=== PATIENT | male | born 1935 | race Caucasian/White ===

== ENCOUNTER → 2016-10-11 | Outpatient (CLI) | payer BC ==
[~2016-10-11] MED LIST: ASPI81TA28 PO; CYAN100020 PO; GLIM2TAB2 PO; LEVO100T PO; LISI-729 PO; NVLGI SC; NXM/40 PO; VTMD1000 PO
== END | disposition home or self-care (01) ==
LOC: C.LABBFT 08:36
PROVIDERS: ATTEND Nurse Practitioner Adult Health
DX: E03.9 Hypothyroidism, unspecified (principal)

== ENCOUNTER → 2016-12-15 | Outpatient (CLI) | payer BC ==
[2016-12-15 13:44] LABS: ESTIMATED AVERAGE GLUCOSE 177 mg/dl; HA1C FLAG Normal (Normal)
== END | disposition home or self-care (01) ==
LOC: C.LAB1850 11:35
PROVIDERS: ATTEND Nurse Practitioner Adult Health
DX: E11.29 Type 2 diabetes mellitus with other diabetic kidney complication (principal)

== ENCOUNTER → 2017-02-08 | Outpatient (CLI) | payer BC ==
--- NOTE | 2017-02-08 08:46 | DIAGNOSTIC IMAGING REPORT ---
CT OF THE CHEST WITHOUT IV CONTRAST CLINICAL HISTORY: Pulmonary nodule. One-year follow-up. COMPARISON STUDY: 05/12/2016 CT DOSE: 683.23 mGy.cm TECHNIQUE: CT of the thorax was performed from the thoracic inlet to the lung bases. Images are reviewed in the axial, sagittal, and coronal planes. IV contrast was not administered for this examination. FINDINGS: Thyroid: Imaged portions of the thyroid gland are normal in appearance. Thoracic aorta: The thoracic aorta is normal in course and caliber, noting standard 3 vessel arch anatomy. Heart: The heart is normal in size. There are coronary artery calcifications present. Lungs and pleural spaces: No pleural effusions are visualized. There is pulmonary emphysema. There is dependent lower lobe subpleural reticulation. There is a stable solid 5 mm pulmonary nodule within the left lower lobe as visualized on image #[id number]. There is a stable solid 7 mm left lower lobe pulmonary nodule as visualized in image #[id number]. There is a stable solid 5 x 3 mm pulmonary nodule within the lingula, as visualized on image #[id number].. There is an additional stable 4 mm solid lingular pulmonary nodule as visualized in image #[id number]. Mediastinum: There is a stable subcarinal lymph node the upper limits of normal in size. Rosemary: There is no evidence of pathologic hilar adenopathy given the limitations of a noncontrast study Axilla: Clear. Upper abdomen: Partially visualized upper abdominal viscera is within normal limits. Skeletal structures: There are no lytic or blastic osseous lesions. IMPRESSION: 1. Pulmonary emphysema 2. Mild dependent subpleural reticulation 3. Stable subcentimeter left lung pulmonary nodules. A 12 month follow-up is recommended per Fleischner criteria. Please refer to below summary of Fleischner criteria recommendations for follow-up of incidental CT nodules (Shiv Isaac, Guidelines for management of small pulmonary nodules detected on CT scans: A statement from the Fleischner Society, Radiology 237: [phone].) SOLID NODULES Solitary nodule size: <6 mm * low risk patients: no follow-up needed * high risk patients: optional CT at 12 months Solitary nodule size: 6-8 mm * low risk patients: follow-up at 6-12 months, then consider further follow-up at 18-24 months * high risk patients: initial follow-up CT at 6-12 months and then at 18-24 months if no change Solitary nodule size: >8 mm * either low or high risk patients - consider follow-up CT at 3 months, and/or CT-PET, and/or biopsy Multiple nodules size: <6 mm * low risk patients: no routine follow-up * high risk patients: optional CT at 12 months Multiple nodules size: 6-8 mm * low risk patients: follow-up at 3-6 months, then consider further follow-up at 18-24 months * high risk patients: follow-up at 3-6 months, then at 18-24 months if no change Multiple nodules size: >8 mm * low risk patients: follow-up at 3-6 months, then consider further follow-up at 18-24 months * high risk patients: follow-up at 3-6 months, then at 18-24 months if no change Note: newly detected indeterminate nodule in persons 35 years of age or older. * low risk patients: minimal or absent history of smoking and/or other known risk factors * high risk patients: history of smoking or of other known risk factors (e.g. first degree relative with lung cancer, or exposure to asbestos, radon, uranium) * if a nodule up to 8 mm is partly solid or is ground glass further follow-up is required after 24 months to exclude possible slow growing adenocarcinoma (YESSENIA) SUBSOLID NODULES Solitary pure ground-glass nodule * nodule size <6 mm - no CT follow-up required * nodule size >=6 mm - follow-up CT at 6-12 months, then every 2 years until 5 years Solitary part-solid nodule * nodule size <6 mm - no CT follow-up required * nodule size >=6 mm - follow-up CT at 3-6 months. If unchanged, and solid component remains <6 mm, then annual follow-up for 5 years Multiple subsolid nodules * nodule size <6 mm - follow-up CT at 3-6 months, consider further follow-up at 2 and 4 years if stable * nodule size >=6 mm - follow-up CT at 3-6 months, subsequent management based on the most suspicious nodule(s) Electronically signed by: Braxton Carlton M.D. 02/08/2017 8:45 AM Dictated Date/Time: 02/08/2017 8:35 AM
== END | disposition home or self-care (01) ==
LOC: C.CTS 08:22
PROVIDERS: ATTEND Physician Assistant Medical
DX: R91.8 Other nonspecific abnormal finding of lung field (principal); J43.9 Emphysema, unspecified

== ENCOUNTER → 2017-03-08 | Outpatient (CLI) | payer BC ==
[2017-03-08 12:21] LABS: BASO % 1.8 %; BASO ABS # 0.09 K/uL (0-0.2); COMPLETE YES; EOS % 1.2 %; HEMATOCRIT 37.3 % (42-52); IG% 0.4 %; LYMPH % 30.9 %; LYMPH ABS # 1.58 K/uL (1.2-3.4); MEAN CELL VOLUME 98.7 fL (80-100); MEAN CORPUSCULAR HEMOGLOBIN 33.3 pg (25-34); MEAN CORPUSCULAR HGB CONC 33.8 g/dl (32-36); MEAN PLATELET VOLUME 11.5 fL (7.4-10.4); MONO % 9.2 %; NEUT % 56.5 %; PLATELET COUNT 119 K/uL (130-400); RED BLOOD COUNT 3.78 M/uL (4.7-6.1); WHITE BLOOD COUNT 5.12 K/uL (4.8-10.8)
== END | disposition home or self-care (01) ==
LOC: C.LABBFT 08:24
PROVIDERS: ATTEND Internal Medicine Hematology & Oncology
DX: D61.818 Other pancytopenia (principal)

== ENCOUNTER → 2017-03-28 | Outpatient (CLI) | payer BC ==
[2017-03-28 13:09] LABS: ESTIMATED AVERAGE GLUCOSE 177 mg/dl; HA1C FLAG Normal (Normal)
== END | disposition home or self-care (01) ==
LOC: C.LABBFT 09:08
PROVIDERS: ATTEND Nurse Practitioner Adult Health
DX: E11.29 Type 2 diabetes mellitus with other diabetic kidney complication (principal)

== ENCOUNTER → 2017-07-16 | Outpatient (CLI) | payer BC ==
[2017-07-16 12:41] LABS: ESTIMATED AVERAGE GLUCOSE 163 mg/dl; HA1C FLAG Normal (Normal)
== END | disposition home or self-care (01) ==
LOC: C.LABBFT 08:01
PROVIDERS: ATTEND Nurse Practitioner Adult Health
DX: E11.65 Type 2 diabetes mellitus with hyperglycemia (principal)

== ENCOUNTER → 2017-10-02 | Outpatient (CLI) | payer BC ==
[2017-10-02 17:00] LABS: EOS ABS # 0.05 K/uL (0-0.5); HEMATOCRIT 40.6 % (42-52); HEMOGLOBIN 13.4 g/dL (14.0-18.0); IG# 0.01 K/uL (0.00-0.02); LYMPH ABS # 1.52 K/uL (1.2-3.4); MEAN CELL VOLUME 100.2 fL (80-100); MEAN CORPUSCULAR HEMOGLOBIN 33.1 pg (25-34); MEAN PLATELET VOLUME 11.5 fL (7.4-10.4); MONO ABS # 0.49 K/uL (0.11-0.59); NEUT % 55.8 %; NEUT ABS # 2.73 K/uL (1.4-6.5); PLATELET COUNT 121 K/uL (130-400); RED CELL DISTRIBUTION WIDTH CV 13.7 % (11.5-14.5); RED CELL DISTRIBUTION WIDTH SD 50.4 fL (36.4-46.3)
[2017-10-02 17:20] LABS: ALKALINE PHOSPHATASE 64 U/L (45-117); ALT/SGPT 40 U/L (12-78); AST/SGOT 24 U/L (15-37); BLOOD UREA NITROGEN 16 mg/dl (7-18); CALCIUM 9.1 mg/dl (8.5-10.1); CARBON DIOXIDE 27 mmol/L (21-32); CREATININE 1.22 mg/dl (0.60-1.40); GLUCOSE 216 mg/dl (70-99); POTASSIUM 4.1 mmol/L (3.5-5.1); SODIUM 139 mmol/L (136-145); TOTAL PROTEIN 7.4 gm/dl (6.4-8.2)
[2017-10-03 06:42] LABS: HEMOGLOBIN A1C 7.1 % (4.5-5.6)
== END | disposition home or self-care (01) ==
LOC: C.LABBC 14:57
PROVIDERS: ATTEND Internal Medicine
DX: E11.9 Type 2 diabetes mellitus without complications (principal); Z86.19 Personal history of other infectious and parasitic diseases

== ENCOUNTER → 2017-11-01 | Outpatient (CLI) | payer BC ==
[~2017-11-01] MED LIST changes: +CELE1CAP30 PO; +INSU1.2I SC; +LEVO112T4 PO; +NVLGI/PEN SC
--- NOTE | 2017-11-01 11:09 | DIAGNOSTIC IMAGING REPORT ---
CHEST 2 VIEWS ROUTINE HISTORY: 81 years-old Male R05 [id number] acute cough COMPARISON: Chest CT 02/08/2017, chest radiograph 12/04/2015 TECHNIQUE: PA and lateral views of the chest FINDINGS: Cardiomediastinal and hilar silhouettes are within normal limits. Linear subsegmental atelectasis or scarring of the lingula. Emphysematous changes are noted with hyperinflation. Mild biapical pleural-parenchymal scarring without pneumothorax, pleural effusion, focal airspace consolidation or overt pulmonary edema. Bones of the chest appear grossly intact. IMPRESSION: 1. Emphysema without acute process. 2. Linear subsegmental atelectasis/scarring of the lingula. The above report was generated using voice recognition software. It may contain grammatical, syntax or spelling errors. Electronically signed by: Juan Ramires M.D. 11/01/2017 11:08 AM Dictated Date/Time: 11/01/2017 11:06 AM
== END | disposition home or self-care (01) ==
LOC: C.RADBC 10:30
PROVIDERS: ATTEND Nurse Practitioner Adult Health
DX: R05 Cough (principal); J43.9 Emphysema, unspecified; J98.11 Atelectasis

== ENCOUNTER 2017-11-05 10:27 | Emergency (ER) | payer BC ==
[~2017-11-05] VITALS: Ht 185.4 cm; Wt 104.0 kg
[~2017-11-05 10:27] MED LIST changes: -CELE1CAP30 PO; -INSU1.2I SC; -LEVO112T4 PO; -NVLGI/PEN SC
[2017-11-05 10:44] VITALS: TEMP 36.8; Ht 185.4 cm; Wt 104.0 kg
[2017-11-05] MEDS ORDERED: INSU1.2I SC (11:30)
[2017-11-05] MEDS ORDERED: NVLGI/PEN SC (11:30)
[2017-11-05] MEDS ORDERED: LEVO112T4 PO (11:30)
[2017-11-05] MEDS ORDERED: CELE1CAP30 PO (11:30)
[2017-11-05 12:39] VITALS: O2SAT 96
[2017-11-05 12:41] LABS: BASO % 0.9 %; BASO ABS # 0.07 K/uL (0-0.2); EOS % 0.9 %; EOS ABS # 0.07 K/uL (0-0.5); HEMATOCRIT 37.5 % (42-52); HEMOGLOBIN 13.1 g/dL (14.0-18.0); IG# 0.04 K/uL (0.00-0.02); LYMPH ABS # 1.69 K/uL (1.2-3.4); MEAN CELL VOLUME 96.6 fL (80-100); MEAN CORPUSCULAR HEMOGLOBIN 33.8 pg (25-34); MEAN CORPUSCULAR HGB CONC 34.9 g/dl (32-36); MEAN PLATELET VOLUME 11.7 fL (7.4-10.4); MONO % 7.2 %; MONO ABS # 0.58 K/uL (0.11-0.59); NEUT % 69.5 %; PLATELET COUNT 119 K/uL (130-400); RED CELL DISTRIBUTION WIDTH CV 13.9 % (11.5-14.5); RED CELL DISTRIBUTION WIDTH SD 49.2 fL (36.4-46.3); WHITE BLOOD COUNT 8.05 K/uL (4.8-10.8)
[2017-11-05 12:43] LABS: PTT PATIENT 26.6 SECONDS (21.0-31.0)
[2017-11-05 12:51] LABS: ALBUMIN 3.9 gm/dl (3.4-5.0); ALT/SGPT 33 U/L (12-78); AST/SGOT 23 U/L (15-37); BLOOD UREA NITROGEN 18 mg/dl (7-18); CALCIUM 8.4 mg/dl (8.5-10.1); CARBON DIOXIDE 25 mmol/L (21-32); CREATININE 1.25 mg/dl (0.60-1.40); GLUCOSE 171 mg/dl (70-99); LIPASE 83 U/L (73-393); POTASSIUM 4.2 mmol/L (3.5-5.1); SODIUM 135 mmol/L (136-145)
--- NOTE | 2017-11-05 12:53 | DIAGNOSTIC IMAGING REPORT ---
CHEST ONE VIEW PORTABLE CLINICAL HISTORY: 81 years-old Male presenting with Evaluate Fever/Sepsis. TECHNIQUE: Portable upright AP view of the chest was obtained. COMPARISON: 11/01/2017. FINDINGS: Atherosclerosis of the aortic arch. Cardiac silhouette normal in size. Bandlike opacity in the left lower lung. No other focal opacity. No large effusion or pneumothorax. Osseous structures normal. IMPRESSION: 1. Minimal left basilar atelectasis or scarring. No convincing evidence of pneumonia. Electronically signed by: Dez Florence M.D. 11/05/2017 12:52 PM Dictated Date/Time: 11/05/2017 12:51 PM
[2017-11-05 13:01] LABS: ALKALINE PHOSPHATASE 73 U/L (45-117); CKMB 2.7 ng/ml (0.5-3.6); TOTAL PROTEIN 7.7 gm/dl (6.4-8.2)
--- NOTE | 2017-11-05 13:26 | EMERGENCY ROOM VISIT NOTE ---
History Report prepared by Leslie: Jameel Pierre Under the Supervision of: Dr. Cali Burns D.O. First contact with patient: 11:37 Chief Complaint: SHORTNESS OF BREATH Stated Complaint: BREATHING PROBLEMS History of Present Illness The patient is an 81 year old male who presents to the Emergency Room with complaints of a progressively worsening cough that he has been experiencing for the past two weeks. He notes that he has had shortness of breath issues for the past few years, but states that they have been progressively worsening since developing a cold two weeks ago. He adds that the dyspnea can onset when his is sitting relaxed in a chair, and does not seem to be worsened by/associated to exertion. The patient does have a producing cough currently and does seem weak as compared to his usual. He denies any recent fevers or achiness. The patient does follow with a nutrition aides teacher. 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 A total of 10 systems reviewed and were otherwise negative. Past Medical & Surgical Medical Problems: (1) History of colon cancer History of colon cancer Family History Cancer Diabetes mellitus Heart disease Hypertension Social History Smoking Status: Former Smoker Drug Use: none Marital Status: Housing Status: lives with significant other Current/Historical Medications Scheduled Aspirin (Aspirin Ec), 81 MG PO QAM Celecoxib (Celecoxib), 200 MG PO DAILY Cholecalciferol (Vitamin D3), 2,000 UNITS PO QAM Cyanocobalamin (Vitamin B12), 1,000 MCG PO QAM Esomeprazole Magnesium (Nexium), 40 MG PO QAM Insulin Aspart (Novolog Flexpen), 3-5 UNITS SC DAILY Insulin Glargine (Toujeo Solostar), 20 UNITS SC DAILY Levothyroxine Sodium (Levothyroxine Sodium), 112 MCG PO DAILY Lisinopril (Zestril), 5 MG PO QAM Allergies Coded Allergies: No Known Allergies (Verified , 11/05/17) Physical Exam Vital Signs Date Time Temp Pulse Resp B/P (MAP) Pulse Ox O2 Delivery O2 Flow Rate FiO2 11/05/17 12:43 64 11/05/17 12:40 67 20 131/60 96 Room Air 11/05/17 12:39 96 Room Air 11/05/17 12:22 Room Air 11/05/17 10:44 36.8 89 20 125/67 95 Room Air Physical Exam CONSTITUTIONAL/VITAL SIGNS: Reviewed / noted above. GENERAL: Non-toxic in appearance. INTEGUMENTARY: Warm, dry, and [place]. HEAD: Normocephalic. EYES: without scleral icterus or trauma. ENT/OROPHARYNX: clear and moist. LYMPHADENOPATHY/NECK: Is supple without lymphadenopathy or meningismus. RESPIRATORY: Lungs clear and equal. CARDIOVASCULAR: Regular rate and rhythm. GI/ABDOMEN: Soft and nontender. No organomegaly or pulsatile mass. No rebound or guarding. Normal bowel sounds. EXTREMITIES: Warm and well perfused. BACK: No CVA tenderness. NEUROLOGICAL: Intact without focal deficits. PSYCHIATRIC: normal affect. MUSCULOSKELETAL: Normally developed with good muscle tone. Medical Decision & Procedures ER Provider Diagnostic Interpretation: Radiology results as stated below per my review and radiologist interpretation: CHEST ONE VIEW PORTABLE CLINICAL HISTORY: 81 years-old Male presenting with Evaluate Fever/Sepsis. TECHNIQUE: Portable upright AP view of the chest was obtained. COMPARISON: 11/01/2017. FINDINGS: Atherosclerosis of the aortic arch. Cardiac silhouette normal in size. Bandlike opacity in the left lower lung. No other focal opacity. No large effusion or pneumothorax. Osseous structures normal. IMPRESSION: 1. Minimal left basilar atelectasis or scarring. No convincing evidence of pneumonia. Electronically signed by: Dez Florence M.D. 11/05/2017 12:52 PM Dictated Date/Time: 11/05/2017 12:51 PM Laboratory Results 11/05/17 10:55 Red Blood Count 3.88, Mean Corpuscular Volume 96.6, Mean Corpuscular Hemoglobin 33.8, Mean Corpuscular Hemoglobin Concent 34.9, Mean Platelet Volume 11.7, Neutrophils (%) (Auto) 69.5, Lymphocytes (%) (Auto) 21.0, Monocytes (%) (Auto) 7.2, Eosinophils (%) (Auto) 0.9, Basophils (%) (Auto) 0.9, Neutrophils # (Auto) 5.60, Lymphocytes # (Auto) 1.69, Monocytes # (Auto) 0.58, Eosinophils # (Auto) 0.07, Basophils # (Auto) 0.07 11/05/17 10:55 Test 11/05/17 10:55 White Blood Count 8.05 K/uL (4.8-10.8) Red Blood Count 3.88 M/uL (4.7-6.1) Hemoglobin 13.1 g/dL (14.0-18.0) Hematocrit 37.5 % (42-52) Mean Corpuscular Volume 96.6 fL (80-100) Mean Corpuscular Hemoglobin 33.8 pg (25-34) Mean Corpuscular Hemoglobin Concent 34.9 g/dl (32-36) Platelet Count 119 K/uL (130-400) Mean Platelet Volume 11.7 fL (7.4-10.4) Neutrophils (%) (Auto) 69.5 % Lymphocytes (%) (Auto) 21.0 % Monocytes (%) (Auto) 7.2 % Eosinophils (%) (Auto) 0.9 % Basophils (%) (Auto) 0.9 % Neutrophils # (Auto) 5.60 K/uL (1.4-6.5) Lymphocytes # (Auto) 1.69 K/uL (1.2-3.4) Monocytes # (Auto) 0.58 K/uL (0.11-0.59) Eosinophils # (Auto) 0.07 K/uL (0-0.5) Basophils # (Auto) 0.07 K/uL (0-0.2) RDW Standard Deviation 49.2 fL (36.4-46.3) RDW Coefficient of Variation 13.9 % (11.5-14.5) Immature Granulocyte % (Auto) 0.5 % Immature Granulocyte # (Auto) 0.04 K/uL (0.00-0.02) Prothrombin Time 10.5 SECONDS (9.0-12.0) Prothromb Time International Ratio 1.0 (0.9-1.1) Activated Partial Thromboplast Time 26.6 SECONDS (21.0-31.0) Partial Thromboplastin Ratio 1.0 Anion Gap 8.0 mmol/L (3-11) Est Creatinine Clear Calc Drug Dose 56.7 ml/min Estimated GFR () 61.3 Estimated GFR (Non- 52.9 BUN/Creatinine Ratio 14.7 (10-20) Calcium Level 8.4 mg/dl (8.5-10.1) Total Bilirubin 0.7 mg/dl (0.2-1) Direct Bilirubin 0.2 mg/dl (0-0.2) Aspartate Amino Transf (AST/SGOT) 23 U/L (15-37) Alanine Aminotransferase (ALT/SGPT) 33 U/L (12-78) Alkaline Phosphatase 73 U/L (45-117) Total Creatine Kinase 188 U/L (39-308) Creatine Kinase MB 2.7 ng/ml (0.5-3.6) Creatine Kinase MB Ratio 1.4 (0-3.0) Troponin I < 0.015 ng/ml (0-0.045) Total Protein 7.7 gm/dl (6.4-8.2) Albumin 3.9 gm/dl (3.4-5.0) Lipase 83 U/L (73-393) Thyroid Stimulating Hormone (TSH) 3.170 uIu/ml (0.300-4.500) Laboratory results as stated above per my review. ECG Indication: SOB/dyspnea Rate (beats per minute): 58 Rhythm: sinus bradycardia Findings: other (No ST elevations or depressions) ED Course 1139: Previous medical records were reviewed. The patient was evaluated in room C2. A complete history and physical examination was performed. 1328: On reevaluation, the patient is resting in bed. I discussed the results and findings with the patient. He verbalized agreement of the treatment plan. The patient was discharged home. Medical Decision the differential was considered includes acute myocardial infarction, acute coronary syndrome, myocarditis, pericarditis, pericardial effusions /tamponade, esophageal perforation, pulmonary embolism, pneumonia, pneumothorax, cardiomyopathy, congestive heart, anemia , COPD/asthma exacerbation. This is an 81-year-old male who presents to the ED with a chief complaint of shortness of breath. The patient reports some cold symptoms over the past couple weeks. The patient states that his shortness of breath has worsened over the past couple of weeks. He does report a history of shortness of breath issues for which he is seeing Dr. Pierre as well as another nutrition aides teacher. They are unable to figure out why he is short of breath. He also states that he feels a little weak. He denies any fevers or chills. No achiness. No flulike symptoms other than the cough that is mostly productive for a clear sputum. His vital signs are normal. His physical exam is completely normal. His breathing appears to be comfortable. CBC is unremarkable, complete metabolic panel was normal, troponin was negative, TSH was normal and a chest x- ray did not show acute disease. EK she did not show any acute ischemic changes. The patient was told the results. He is felt to be stable for discharge and outpatient follow-up with his nutrition aides teacher and PCP. Medication Reconcilliation Current Medication List: was personally reviewed by me Blood Pressure Screening Patient's blood pressure: Normal blood pressure Impression Primary Impression: Dyspnea Scribe Attestation The scribe's documentation has been prepared under my direction and personally reviewed by me in its entirety. I confirm that the note above accurately reflects all work, treatment, procedures, and medical decision making performed by me. Departure Information Dispostion Home / Self-Care Referrals Dez Jain M.D. (PCP) Patient Instructions My [facility] Additional Instructions Follow-up with your doctor for further care and evaluation in 1-2 days. Return to the emergency department for worsening or new symptoms or any concerns. You have been examined and treated today on an emergency basis only. This is not a substitute for, or an effort to provide, complete comprehensive medical care. It is impossible to recognize and treat all injuries or illnesses in a single emergency department visit. It is therefore important that you follow up closely with your doctor. Call as soon as possible for an appointment.
[2017-11-05 13:52] VITALS: BP 136/70; PULSE 58; O2SAT 97
== END 2017-11-05 13:54 | disposition home or self-care (01) ==
LOC: C.EDB 10:30 → C.EDC 13:54
DX: R06.00 Dyspnea, unspecified (principal); Z85.038 Personal history of other malignant neoplasm of large intestine; Z80.9 Family history of malignant neoplasm, unspecified; Z83.3 Family history of diabetes mellitus; Z82.49 Family history of ischemic heart disease and other diseases of the circulatory system; Z87.891 Personal history of nicotine dependence; Z79.82 Long term (current) use of aspirin; Z79.4 Long term (current) use of insulin; Z79.899 Other long term (current) drug therapy

== ENCOUNTER 2018-01-02 09:16 | Inpatient (IN) | payer BC, OTHER ==
[2017-12-04 10:43] VITALS: Ht 186.7 cm; Wt 107.4 kg
--- NOTE | 2017-12-04 11:26 | PAT Medication Instructions ---
Service Date Dec 04, 2017. Current Home Medication List Aspirin (Aspirin Ec), 81 MG PO QAM Celecoxib (Celecoxib), 200 MG PO QAM Cholecalciferol (Vitamin D3), 4,000 UNITS PO QAM Cyanocobalamin (Vitamin B12), 1,000 MCG PO QAM Esomeprazole Magnesium (Nexium), 40 MG PO QAM Insulin Aspart (Novolog Flexpen), 3-5 UNITS SC TIDM Insulin Glargine (Toujeo Solostar), 2-20 UNITS INJ QPM Levothyroxine Sodium (Levothyroxine Sodium), 112 MCG PO QAM Lisinopril (Zestril), 5 MG PO QAM Vardenafil (Levitra), 10-20 MG PO DIRECTED Medication Instructions For Your Scheduled Surgery -Contact your surgeon for instructions for: Celecoxib (Celecoxib), 200 MG PO QAM - Hold the following medications the morning of surgery: Lisinopril (Zestril), 5 MG PO QAM Cholecalciferol (Vitamin D3), 4,000 UNITS PO QAM Cyanocobalamin (Vitamin B12), 1,000 MCG PO QAM Insulin Aspart (Novolog Flexpen), 3-5 UNITS SC TIDM Vardenafil (Levitra), 10-20 MG PO DIRECTED - Take the following medications the morning of surgery with a sip of water: Aspirin (Aspirin Ec), 81 MG PO QAM Esomeprazole Magnesium (Nexium), 40 MG PO QAM Levothyroxine Sodium (Levothyroxine Sodium), 112 MCG PO QAM - Take the following medications as scheduled the night before surgery: Insulin Aspart (Novolog Flexpen), 3-5 UNITS SC TIDM Insulin Glargine (Toujeo Solostar), 2-20 UNITS INJ QPM Vardenafil (Levitra), 10-20 MG PO DIRECTED If you have any questions please call us at [phone] or [phone] or [phone]
[2017-12-04 12:19] LABS: BASO ABS # 0.11 K/uL (0-0.2); EOS % 1.1 %; EOS ABS # 0.06 K/uL (0-0.5); HEMATOCRIT 35.1 % (42-52); HEMOGLOBIN 12.1 g/dL (14.0-18.0); IG# 0.03 K/uL (0.00-0.02); LYMPH % 27.8 %; LYMPH ABS # 1.56 K/uL (1.2-3.4); MEAN CORPUSCULAR HEMOGLOBIN 33.8 pg (25-34); MEAN CORPUSCULAR HGB CONC 34.5 g/dl (32-36); MEAN PLATELET VOLUME 10.9 fL (7.4-10.4); MONO % 11.2 %; MONO ABS # 0.63 K/uL (0.11-0.59); NEUT % 57.4 %; NEUT ABS # 3.22 K/uL (1.4-6.5); PLATELET COUNT 112 K/uL (130-400); RED CELL DISTRIBUTION WIDTH CV 14.2 % (11.5-14.5); RED CELL DISTRIBUTION WIDTH SD 50.9 fL (36.4-46.3); WHITE BLOOD COUNT 5.61 K/uL (4.8-10.8)
[2017-12-04 12:28] LABS: CREATININE 1.14 mg/dl (0.60-1.40); POTASSIUM 4.1 mmol/L (3.5-5.1)
[~2018-01-02] VITALS: Ht 186.7 cm; Wt 107.4 kg
[2018-01-02] VITALS (9 sets, daily range): BP systolic 103–146; BP diastolic 61–71; PULSE 66–95; TEMP 36.4–36.8; O2SAT 90–98
[~2018-01-02 09:16] MED LIST changes: +ACETAMINOPHEN 500 MG TAB PO SCH; +ATROPINE SULFATE 0.1 MG/ML 5ML SYR IV PRN; +CEFAZOLIN 2000MG IV PUSH 15 ML IV SCH; +CELE1CAP30 PO; +CeleBREX 200 MG CAP PO SCH; +EpHEDrine SULFATE INJ 50 MG/ML AMP IV PRN; +FLUMAZENIL 0.1 MG/1 ML 10 ML VIAL IV PRN; +GABAPENTIN 300 MG CAP PO SCH; -GLIM2TAB2 PO; +HYDROmorphone INJ 0.5 MG/0.5 ML SYR IV PRN; +INSU1.2I INJ; +LABETALOL HCL IV 5 MG/ML 20ML IV PRN; -LEVO100T PO; +LEVO112T4 PO; +LVT/20 PO; +MEPERIDINE HCL 25 MG/ML CARP IV PRN; +MoRPHine SULFATE 4 MG/ML 1 ML CARP\\VIAL IV PRN; +NALOXONE HCL 0.4 MG/1 ML VIAL/CARP IV PRN; -NVLGI SC; +NVLGI/PEN SC; +ONDANSETRON INJ 2 MG/ML 2 ML VIAL IV PRN; +PHENYLEPHRINE 100MCG/ML 5ML SYR IV PRN
[2018-01-02] MEDS: LACTATED RINGER'S 1000ML 1,000 ML IV SCH ×2 (09:55→16:27)
--- NOTE | 2018-01-02 12:45 | History & Physical Bridge Note ---
H&P Re-Evaluation Bridge Note: I have examined the patient, reviewed the History & Physical and in the interval since the performance of the History & Physical I have noted the following changes of clinical significance: No changes noted
--- NOTE | 2018-01-02 12:46 | History and Physical ---
History & Physical Date Jan 02, 2018. History of Present Illness The patient is a 82 year old male with complaints of back and leg pain Past Medical/Surgical History Medical Problems: (1) History of colon cancer Additional History Hepatic Disease: No Endocrine Disorder: No Kidney Disease: No Hypertension: Yes Heart Disease: No Bleeding Tendencies: No Infectious Diseases: No Allergies Coded Allergies: No Known Allergies (Verified , 01/02/18) Home Medications Scheduled Aspirin (Aspirin Ec), 81 MG PO QAM Celecoxib (Celecoxib), 200 MG PO QAM Cholecalciferol (Vitamin D3), 4,000 UNITS PO QAM Cyanocobalamin (Vitamin B12), 1,000 MCG PO QAM Esomeprazole Magnesium (Nexium), 40 MG PO QAM Insulin Aspart (Novolog Flexpen), 3-5 UNITS SC TIDM Insulin Glargine (Toujeo Solostar), 2-20 UNITS INJ QPM Levothyroxine Sodium (Levothyroxine Sodium), 112 MCG PO QAM Lisinopril (Zestril), 5 MG PO QAM Physical Examination Skin: warm/dry, no rash Eyes: normal inspection, EOMI, sclerae normal ENT: normal ENT inspection, pharynx normal Head: normocephalic, atraumatic Neck: supple, no adenopathy, trachea midline Respiratory/Chest: lungs clear, normal breath sounds, no respiratory distress Cardiovascular: regular rate, rhythm, no edema, no murmur Abdomen / GI: normal bowel sounds, non tender Back: normal inspection Extremities: normal inspection, normal range of motion Neurologic/Psych: no motor/sensory deficits, alert, normal reflexes, oriented x 3 Diagnosis Lumbar spinal stenosis Plan of Treatment L5-S1 decompression and fusion
[2018-01-02] MEDS ORDERED: BUPIVACAINE/EPINEPHRINE 0.5% MPF 1:200,000 30 ML VIAL ONE (13:17)
[2018-01-02] MEDS ORDERED: BACITRACIN 50000 UNIT VIAL ONE (13:17)
[2018-01-02] MEDS ORDERED: MIDAZOLAM HCL 1 MG/ML 2ML VIAL ONE (13:18)
[2018-01-02] MEDS ORDERED: FENTANYL CITRATE INJ 50 MCG/1 ML 2 ML VIAL ONE ×2 (13:18→13:52)
[2018-01-02] MEDS ORDERED: HYDROmorphone INJ 2 MG/ML SYR/VIAL ONE ×2 (13:52→14:45)
[2018-01-02] MEDS ORDERED: NEOSTIGMINE METHYLSULFATE 1 MG/ML 10ML VIAL ONE (14:17)
[2018-01-02] MEDS ORDERED: PROPOFOL IV EMULSION 10 MG/ML 20 ML VIAL IV ONE (14:17)
[2018-01-02] MEDS ORDERED: ONDANSETRON INJ 2 MG/ML 2 ML VIAL ONE (14:17)
[2018-01-02] MEDS ORDERED: GLYCOPYRROLATE INJ 0.2 MG/ML VIAL ONE (14:17)
[2018-01-02] MEDS ORDERED: EpHEDrine SULFATE 50MG/5ML SYR ONE (14:17)
[2018-01-02] MEDS ORDERED: PHENYLEPHRINE 100MCG/ML 5ML SYR ONE (14:17)
[2018-01-02] MEDS ORDERED: LIDOCAINE HCL 2% 2 ML VIAL (20MG/ML) ONE (14:17)
[2018-01-02] MEDS ORDERED: DEXAMETHASONE SOD INJ 4 MG/ML VIAL ONE (14:17)
[2018-01-02] MEDS ORDERED: FLOSEAL HEMOSTATIC MATRIX 10ML TOP ONE (14:47)
[2018-01-02] MEDS ORDERED: KETOROLAC TROMETHAMINE 30 MG/ML VIAL ONE (14:48)
--- NOTE | 2018-01-02 14:52 | Anesthesiology Progress Note ---
Anesthesia Post Op Note Date & Time Jan 02, 2018 at 14:52 Vital Signs Pain Intensity: 0 Vital Signs Past 12 Hours Date Time Temp Pulse Resp B/P (MAP) Pulse Ox O2 Delivery O2 Flow Rate FiO2 01/02/18 10:09 95 Room Air Notes Mental Status: alert / awake / arousable, participated in evaluation Pt Amnestic to Procedure: Yes Nausea / Vomiting: adequately controlled Pain: adequately controlled Airway Patency, RR, SpO2: stable & adequate BP & HR: stable & adequate Hydration State: stable & adequate Anesthetic Complications: no major complications apparent
[2018-01-02] MEDS ORDERED: SODIUM CHLORIDE 0.9% 1000ML 1,000 ML IV SCH ×2 (14:57)
--- NOTE | 2018-01-02 14:57 | [facility] Operative Report ---
Operative Report Operative Date Jan 02, 2018. Pre-Operative Diagnosis Lumbar spinal stenosis Post-Operative Diagnosis Lumbar Spinal Stenosis Procedure(s) Performed 1. Lumbar decompression medial facetectomies foraminotomies L4-5 L5-S1. #2 posterior spinal fusion L5-S1. #3 posterior posterior instrument Tatian L5-S1. #4 interbody fusion L5-S1. #5 placed a peek cage 9 x 26 mm at L5-S1. #6 placement of locally harvested morselized autograft L5-S1. #7 placement InFUSE collagen sponge, Nast graft in the posterior lateral gutters and ostially up in the interbody space. Surgeon Dr. Wright [place] Tester Surgeon(s) Maira Salgado PA-C Estimated Blood Loss 100 cc Findings Spinal stenosis Specimens none per surgeon Anesthesia Type General Description of Procedure Patient was met with preoperatively case discussed all questions addressed. After informed consent obtained patient was taken to the operative suite underwent intubation and placed in the prone position on the Alejandro table on top of the Cr frame. All bony prominences were well-padded eyes inspected to ensure no external pressure placed upon the. This point the lumbar spine was prepped and draped in normal sterile fashion. Sharp dissection with the assistance of b Bovie cautery was performed down to and exposing the lamina and transverse process of L5 and sacral ala bilaterally. Obvious pars defect was appreciated. Complete laminectomy was performed of L5 partial laminectomy at L4 including medial facetectomy and foraminotomies to address severe foraminal stenosis. Pedicle screws were then placed in L5 and S1 bilaterally with the assistance of fluoroscopy and a Propacet salud placed. Through a transforaminal approach on left complete discectomy of L5-S1 was performe and a 9 x 26 mm peek cage filled with ostium bone graft tapped in position. Rods and locked in final position. Transverse process of L5 and the sacral ala were then burred to subcortical bleeding bone. Infuse collagen sponge mesh graft looked harvested Charles's allograft was placed in the posterior lateral gutters. A 15 round LAURA drain inserted. Incision was then closed with 1 Vicryl fascia 2-0 Vicryl 17 C4 Monocryl for fashion closure Steri-Strips sterile dressings placed. Patient weakened the back is doing this. Please note Kirsten Salgado was present throughout the entire procedure involved in patient positioning complex portions of the surgery and fashion closure. I attest to the content of the Intraoperative Record and any orders documented therein. Any exceptions are noted below.
[2018-01-02] MEDS ORDERED: ONDANSETRON INJ 2 MG/ML 2 ML VIAL IV PRN (15:00)
[2018-01-02] MEDS ORDERED: FAMOTIDINE 20 MG TAB PO PRN (15:00)
[2018-01-02] MEDS ORDERED: ACETAMINOPHEN 500 MG TAB PO PRN (15:00)
[2018-01-02] MEDS ORDERED: DO NOT ADMINISTER FLU VACCINE PRN (15:00)
[2018-01-02] MEDS ORDERED: METOCLOPRAMIDE HCL INJ 5 MG/ML 2 ML VIAL IV PRN (15:00)
[2018-01-02] MEDS ORDERED: NALOXONE HCL 0.4 MG/1 ML VIAL/CARP IV PRN ×2 (15:00)
[2018-01-02] MEDS ORDERED: SOD PHOSPHATE/SOD BIPHOSPHATE ENEMA 132 ML BTL PR PRN (15:00)
[2018-01-02] MEDS ORDERED: DO NOT ADMINISTER PNEUMOCOCCAL VACCINE PRN (15:00)
[2018-01-02] MEDS ORDERED: PROMETHAZINE HCL INJ 12.5 MG in SODIUM CHLORIDE 0.9% 50ML 50 ML IV PRN (15:00)
[2018-01-02] MEDS ORDERED: ACETAMINOPHEN IV 100 ML IV PRN (15:00)
[2018-01-02] MEDS ORDERED: BISACODYL 10 MG SUPP PR PRN (15:00)
[2018-01-02] MEDS ORDERED: hydrOXYzine HCL 25 MG TAB PO PRN (15:00)
[2018-01-02] MEDS ORDERED: LORAZEPAM 0.5 MG TAB PO PRN (15:00)
[2018-01-02] MEDS ORDERED: LORAZEPAM INJ 0.5 MG in SYRINGE 0 ML IV PRN (15:00)
[2018-01-02] MEDS ORDERED: ALUMINUM/MAGNESIUM SUSP 30 ML UDC PO PRN (15:00)
[2018-01-02] MEDS ORDERED: MAGNESIUM HYDROXIDE SUSP 30 ML UDC PO PRN (15:00)
--- NOTE | 2018-01-02 15:02 | DIAGNOSTIC IMAGING REPORT ---
LUMBAR SPINE 2 OR 3 VIEW HISTORY: 82 years-old Male L5-S1 DECOMPRESSION/FUSION status post decompression with fusion at L5-S1 COMPARISON: None available TECHNIQUE: 2 spot fluoroscopic images of the lumbar spine were obtained utilizing 13.9 seconds fluoroscopy time. FINDINGS: Postoperative changes from posterior decompression with interbody salud and screw fusion with discectomy at L5-S1. There appears to be a few millimeters anterolisthesis L5 on S1. Multilevel spondylitic spurring. IMPRESSION: Fluoroscopic assistance as above. Please see operative report for further details. The above report was generated using voice recognition software. It may contain grammatical, syntax or spelling errors. Electronically signed by: Juan Ramires M.D. 01/02/2018 3:00 PM Dictated Date/Time: 01/02/2018 2:59 PM
[2018-01-02] MEDS: HYDROmorphone HCL 0.5MG/ML 50 ML CASSETTE IV PRN ×3 (15:26→22:41)
--- NOTE | 2018-01-02 15:47 | Anesthesiology Progress Note ---
Anesthesia Post Op Note Date & Time Jan 02, 2018 at 15:47 Vital Signs Pain Intensity: 0 Vital Signs Past 12 Hours Date Time Temp Pulse Resp B/P (MAP) Pulse Ox O2 Delivery O2 Flow Rate FiO2 01/02/18 15:11 36.4 76 16 156/82 96 Oxymask 4 01/02/18 10:09 95 Room Air Notes Mental Status: alert / awake / arousable, participated in evaluation Pt Amnestic to Procedure: Yes Nausea / Vomiting: adequately controlled Pain: adequately controlled Airway Patency, RR, SpO2: stable & adequate BP & HR: stable & adequate Hydration State: stable & adequate Anesthetic Complications: no major complications apparent
[2018-01-02] MEDS ORDERED: HydrALAZINE HCL 20 MG/ML VIAL IV. PRN (16:45)
[2018-01-02] MEDS ORDERED: DEXTROSE 50% 50 ML SYR IV PRN (17:00)
[2018-01-02] MEDS ORDERED: GLUCOSE 10 TABS/TUBE PO PRN (17:00)
[2018-01-02] MEDS ORDERED: GLUCAGON FOR INJ 1 MG VIAL SQ PRN (17:00)
[2018-01-02] MEDS ORDERED: GLUCOSE 40% GEL 15 GM TUBE PO PRN (17:00)
--- NOTE | 2018-01-02 17:03 | Medical Consult ---
Consultation Date of Consultation: Jan 02, 2018. Attending Physician: Yash Wright D.O. Reason for Consultation: Medical management History of Present Illness Patient is an 82 y/o male, with PMHx of T2DM, HTN, hypothyroidism, and GERD, s/ p lumbar decompression by Dr. Wright on 01/02. Hospitalist team was consulted for medical management. Patient resting in bed, feeling well. Has had nothing to eat yet. No BM/flatus postop- last BM on 01/01. Pain 0/10. Patient denies any fever, chills, sweats, lightheadedness, dizziness, vision changes, CP, palpitations, edema, SOB, wheezing, cough, abdominal pain, nausea, vomiting, diarrhea, urinary symptoms, melena, numbness/tingling, weakness, muscle/joint pain, anxiety/depression, active bleeding, or new skin discoloration/changes. Past Medical/Surgical History Medical Problems: T2DM hypothyroidism GERD HTN Family History Cancer Diabetes mellitus Heart disease Hypertension Social History Smoking Status: Former Smoker Drug Use: none Marital Status: Housing Status: lives with significant other Allergies Coded Allergies: No Known Allergies (Verified , 01/02/18) Home Medications Reported Home Medications Medications Dose Route/Sig Max Daily Dose Days Date Category Toujeo Solostar (Insulin Glargine) 300 Unit/Ml Inj 2-20 Units INJ QPM 12/04/17 Reported Celecoxib 200 Mg Cap 200 Mg PO QAM 11/05/17 Reported Levothyroxine Sodium 112 Mcg Tab 112 Mcg PO QAM 11/05/17 Reported Novolog Flexpen (Insulin Aspart) 100 Units/Ml Inj 3-5 Units SC TIDM 11/05/17 Reported Aspirin Ec (Aspirin) 81 Mg Tab 81 Mg PO QAM 11/24/15 Reported Vitamin D3 (Cholecalciferol) 1,000 Inter.unit Tab 4,000 Units PO QAM 11/24/15 Reported Vitamin B12 (Cyanocobalamin) 1,000 Mcg Tab 1,000 Mcg PO QAM 11/24/15 Reported Zestril (Lisinopril) 5 Mg Tab 5 Mg PO QAM 11/24/15 Reported Nexium (Esomeprazole Magnesium) 40 Mg Capcr 40 Mg PO QAM 03/25/11 Reported Current Inpatient Medications Current Inpatient Medications Medications (Trade) Dose Ordered Sig/Mami Route Start Time Stop Time Status Last Admin Dose Admin Promethazine HCl 12.5 mg/Sodium Chloride 50.5 ml @ 202 mls/hr Q6H PRN IV 01/02/18 15:00 02/01/18 14:59 Ondansetron HCl (Zofran Inj) 4 mg Q6H PRN IV 01/02/18 15:00 02/01/18 14:59 Metoclopramide HCl (Reglan Inj) 10 mg Q6H PRN IV 01/02/18 15:00 02/01/18 14:59 Lorazepam (Ativan Tab) 0.5 mg Q8H PRN PO 01/02/18 15:00 02/01/18 14:59 Lorazepam 0.5 mg/ Syringe 0.25 ml @ 1 mls/min Q8H PRN IV 01/02/18 15:00 02/01/18 14:59 Pneumococcal Polysaccharide Vaccine 1 ea PRN PRN N/A 01/02/18 15:00 02/01/18 14:59 Influenza Virus Vacc Triv Types A&B 1 ea PRN PRN N/A 01/02/18 15:00 02/01/18 14:59 Polyethylene (Miralax Powder Packet) 17 gm Q6 PO 01/04/18 06:00 02/03/18 05:59 Bisacodyl (Dulcolax Supp) 10 mg DAILY PRN VA 01/02/18 15:00 02/01/18 14:59 Magnesium Hydroxide (Milk Of Magnesia Susp) 30 ml DAILY PRN PO 01/02/18 15:00 02/01/18 14:59 Hydromorphone HCl (Dilaudid Inj) 0.5-1mg prn moder... Q3H PRN IV 01/03/18 06:00 01/17/18 05:59 Oxycodone HCl (Roxicodone Immediate Rel Tab) 5-10mg prn moderate to sev... Q4H PRN PO 01/03/18 06:00 01/17/18 05:59 Cefazolin Sodium 2000 mg/Syringe 15 ml @ 3.75 mls/ min Q8H IV 01/02/18 22:00 01/03/18 06:03 Sodium Chloride 1,000 ml @ 150 mls/hr Q6H40M IV 01/02/18 14:57 02/01/18 14:56 Acetaminophen (Tylenol Tab) 1,000 mg Q8H PRN PO 01/02/18 15:00 02/01/18 14:59 Acetaminophen 100 ml @ 400 mls/hr Q8H PRN IV 01/02/18 15:00 02/01/18 14:59 Naloxone HCl (Narcan Inj) 0.1 mg Q5M PRN IV 01/02/18 15:00 02/01/18 14:59 Senna/Docusate Sodium (Senokot S Tab) 2 tab HS PO 01/02/18 21:00 02/01/18 20:59 Sodium Biphosphate/ Sodium Phosphate (Fleet Enema) 132 ml ONE PRN VA 01/02/18 15:00 02/01/18 14:59 Hydroxyzine HCl (Vistaril Tab) 25 mg Q8H PRN PO 01/02/18 15:00 02/01/18 14:59 Al Hydroxide/Mg Hydroxide (Maalox Susp) 30 ml Q6H PRN PO 01/02/18 15:00 02/01/18 14:59 Famotidine (Pepcid Tab) 20 mg Q12 PRN PO 01/02/18 15:00 02/01/18 14:59 Diphenhydramine HCl (Benadryl Cap) 25 mg Q6H PRN PO 01/02/18 15:00 02/01/18 14:59 Miscellaneous Information (Discontinue SERVICE CONTROL OPERATOR) 1 ea TODAY@0600 ONCE N/A 01/03/18 06:00 01/03/18 06:01 Naloxone HCl (Narcan Inj) 0.1 mg Q5M PRN IV 01/02/18 15:00 01/03/18 06:00 Hydromorphone HCl (Dilaudid Revenue Analyst) 25 mg PRN PRN IV 01/02/18 15:00 01/03/18 06:00 01/02/18 16:09 25 MG Sodium Chloride 1,000 ml @ 15 mls/hr Q24H IV 01/02/18 14:57 01/03/18 06:00 Aspirin (Ecotrin Tab) 81 mg QAM PO 01/03/18 09:00 02/02/18 08:59 Levothyroxine Sodium (Synthroid Tab) 112 mcg DAILYBB PO 01/03/18 06:00 02/02/18 05:59 Lisinopril (Zestril Tab) 5 mg QAM PO 01/03/18 09:00 02/02/18 08:59 Pantoprazole Sodium (Protonix Tab) 40 mg QAM PO 01/03/18 09:00 02/02/18 08:59 Physical Exam Date Time Temp Pulse Resp B/P (MAP) Pulse Ox O2 Delivery O2 Flow Rate FiO2 01/02/18 16:39 36.5 68 15 136/71 (92) 98 Nasal Cannula 3.0 01/02/18 16:28 96 Nasal Cannula 3.0 01/02/18 16:05 36.4 68 14 146/68 (94) 96 Nasal Cannula 3.0 01/02/18 15:47 36.5 01/02/18 15:46 68 12 100 01/02/18 15:46 68 12 01/02/18 15:45 144/74 01/02/18 15:41 67 23 100 01/02/18 15:41 67 23 01/02/18 15:40 145/67 01/02/18 15:36 68 14 100 01/02/18 15:36 68 14 01/02/18 15:35 146/69 01/02/18 15:31 74 13 100 01/02/18 15:31 75 13 01/02/18 15:30 158/72 01/02/18 15:26 74 24 01/02/18 15:26 73 24 100 01/02/18 15:25 144/78 01/02/18 15:21 78 22 01/02/18 15:21 78 22 100 01/02/18 15:20 149/76 01/02/18 15:16 78 21 94 01/02/18 15:16 77 21 01/02/18 15:15 158/78 01/02/18 15:14 156/82 01/02/18 15:11 36.4 76 16 156/82 96 Oxymask 4 01/02/18 10:09 95 Room Air General Appearance: no apparent distress, + obese, + pertinent finding (O2 NC ) Head: normocephalic, atraumatic Eyes: normal inspection, PERRL ENT: hearing grossly normal Neck: supple Respiratory/Chest: lungs clear, no respiratory distress, no accessory muscle use Cardiovascular: regular rate, rhythm Abdomen/GI: normal bowel sounds, non tender, soft Back: normal inspection Extremities/Musculoskelatal: no calf tenderness, no pedal edema, + pertinent finding (SCDs on ) Neurologic/Psych: alert, normal mood/affect, oriented x 3 Skin: normal color, warm/dry, no rash Laboratory Results Last 24 Hours Test 01/02/18 09:41 01/02/18 15:28 Bedside Glucose 147 mg/dl 156 mg/dl Assessment & Plan Patient is an 82 y/o male, with PMHx of T2DM, HTN, hypothyroidism, and GERD, s/ p lumbar decompression by Dr. Wright on 01/02. Hospitalist team was consulted for medical management. s/p lumbar decompression by Dr. Wright on 01/02: - Surgical management, pain management, PT/OT, and DVT prophylaxis as per primary team - Bowel regimen ordered - Encourage incentive spirometer - Follow postop CBC and PRP T2DM- last hgbA1c 7.1% in 09/2017: - Outpatient regimen of Toujeo 20 u daily and NovoLog ISS TID- continue Toujeo - BSG ACHS and ISS HTN: - Hold Lisinopril pending postop PRP - IV Hydralazine PRN Hypothyroidism- TSH WNL 10/2017: Continue Synthroid GERD: Protonix daily while inpatient- resume outpatient regimen at discharge DVT prophylaxis: ASA daily as per surgical team Code status: LEVEL I, FULL Dispo: As per primary team
[2018-01-02] MEDS: INSULIN ASPART 100 UNITS/ML 3 ML PEN SC SCH ×2 (18:05→21:21)
[2018-01-02] MEDS ORDERED: INSULIN GLARGINE SOLOSTAR 100 UNITS/ML 3 ML PEN SC SCH (21:00)
[2018-01-02] MEDS: DOCUSATE SODIUM/SENNA 50/8.6MG TAB PO SCH (21:18)
[2018-01-02] MEDS: CEFAZOLIN IV 2,000 MG in SYRINGE 0 ML IV SCH (22:21)
[2018-01-02] MEDS ORDERED: NURSING VERBAL MED ORDER ONE (22:30)
[2018-01-03 03:12] VITALS: BP 113/60; PULSE 80; TEMP 36.8; O2SAT 94
[2018-01-03] MEDS: CEFAZOLIN IV 2,000 MG in SYRINGE 0 ML IV SCH (05:27)
[2018-01-03] MEDS: LEVOTHYROXINE 112 MCG TAB PO SCH (05:27)
[2018-01-03] MEDS ORDERED: NURSING VERBAL MED ORDER ONE (05:30)
[2018-01-03] MEDS ORDERED: DC PCA ONE (06:00)
[2018-01-03 07:01] VITALS: BP 128/63; PULSE 80; TEMP 36.7; O2SAT 92
[2018-01-03 07:02] LABS: BASO % 0.1 %; BASO ABS # 0.01 K/uL (0-0.2); HEMATOCRIT 30.3 % (42-52); HEMOGLOBIN 10.4 g/dL (14.0-18.0); IG# 0.04 K/uL (0.00-0.02); LYMPH % 7.4 %; LYMPH ABS # 0.77 K/uL (1.2-3.4); MEAN CELL VOLUME 98.1 fL (80-100); MEAN CORPUSCULAR HEMOGLOBIN 33.7 pg (25-34); MEAN CORPUSCULAR HGB CONC 34.3 g/dl (32-36); MEAN PLATELET VOLUME 11.1 fL (7.4-10.4); MONO % 6.3 %; MONO ABS # 0.65 K/uL (0.11-0.59); NEUT % 85.8 %; NEUT ABS # 8.92 K/uL (1.4-6.5); PLATELET COUNT 113 K/uL (130-400); RED CELL DISTRIBUTION WIDTH CV 14.2 % (11.5-14.5); RED CELL DISTRIBUTION WIDTH SD 50.9 fL (36.4-46.3); WHITE BLOOD COUNT 10.39 K/uL (4.8-10.8)
[2018-01-03 07:41] LABS: CALCIUM 8.3 mg/dl (8.5-10.1); CREATININE 1.46 mg/dl (0.60-1.40); POTASSIUM 4.7 mmol/L (3.5-5.1)
[2018-01-03] MEDS: OXYCODONE HCL IR 5 MG TAB (IMMEDIATE RELEASE) PO PRN ×4 (07:57→20:29)
--- NOTE | 2018-01-03 08:28 | Progress Note ---
Progress Note Date of Service Jan 03, 2018. Progress Note Patient's back pain is controlled. Leg symptoms markedly improved. On exam he is sitting in a chair at the bedside is excellent strength testing appears comfortable. Assessment status post lumbar depression fusion per plan at this time will continue physical therapy today anticipate home in the next day or so.
[2018-01-03] MEDS ORDERED: KETOROLAC TROMETHAMINE 15 MG/ML VIAL IV PRN (08:30)
[2018-01-03] MEDS ORDERED: LISINOPRIL 5 MG TAB PO SCH (09:00)
[2018-01-03] MEDS: INSULIN ASPART 100 UNITS/ML 3 ML PEN SC SCH ×4 (09:07→21:00)
[2018-01-03] MEDS: PANTOprazole SOD 40 MG TAB PO SCH (09:08)
[2018-01-03] MEDS: ASPIRIN 81 MG ECTAB PO SCH (09:08)
--- NOTE | 2018-01-03 09:42 | Clinical Documentation Query ---
Dr. JOZEF BONDS, [facility] : CLINICAL DOCUMENTATION QUERY Patient is an 82 year old male who underwent posterior lumbosacral decompression and fusion. Preoperative BUN and creatinine were 12 mg/dl and 1.14 mg/d. POD #1, repeat values are 24 mg/dl and 1.46 mg/dl. He recieved IVF and being monitored with serial chemistries. In your clinical opinion is this patient being managed for: ( x ) Acute kidney failure/MARIE ( ) Not Agree ( ) Other explanation of clinical findings (Please Explain) ( ) Unable to determine (Please Define) ( ) Need to Discuss The medical record reflects the following clinical findings, treatment, and risk factors. Clinical Indicators: As above Treatment: Serial chemistries Risk Factors: Age, prior NPO status, surgery, medications Please clarify and document your clinical opinion in the progress notes and discharge summary. Terms such as "probable", "suspected", "likely", "questionable", "possible", or "still to be ruled out" are acceptable. IF IN AGREEMENT, YOU MUST DOCUMENT ABOVE DIAGNOSTIC STATEMENT IN DAILY PROGRESS NOTES AND DISCHARGE SUMMARY. This document is not part of the patient's record. Thank You, Alvaro Haro, CHRISTOPHE [phone]
--- NOTE | 2018-01-03 14:22 | Anesthesiology Progress Note ---
Anesthesia Post Op Note Date & Time Jan 03, 2018 at 14:22 Vital Signs Vital Signs Past 12 Hours Date Time Temp Pulse Resp B/P (MAP) Pulse Ox O2 Delivery O2 Flow Rate FiO2 01/03/18 07:35 Room Air 01/03/18 07:01 36.7 80 18 128/63 (84) 92 Room Air 01/03/18 03:12 36.8 80 17 113/60 (77) 94 Room Air Notes Mental Status: alert / awake / arousable, participated in evaluation Pt Amnestic to Procedure: Yes Nausea / Vomiting: adequately controlled Pain: adequately controlled Airway Patency, RR, SpO2: stable & adequate BP & HR: stable & adequate Hydration State: stable & adequate Anesthetic Complications: no major complications apparent
[2018-01-03 15:05] VITALS: BP 113/61; PULSE 67; TEMP 36.7; O2SAT 95
--- NOTE | 2018-01-03 15:20 | Hospitalist Progress Note ---
Hospitalist Progress Note Date of Service Jan 03, 2018. (Daniella Sidhu ., VIKTOR-C) Subjective Pt evaluation today including: conversation w/ patient, conversation w/ family ( at bedside), physical exam, chart review, lab review, review of inpatient medication list PO Intake: Tolerating PO diet Voiding: no voiding problems Patient reports feeling well. He states his back pain is well managed and is no longer in his legs. He denies any numbness or tingling. He is doing well with physical therapy. He is tolerating his diet well and passing some gas. He did have some urinary retention last night requiring straight cath but has been voiding on his own today without issue. He has not yet had a bowel movement postop. The patient denies fevers, chills, sweats, chest pain, palpitations, claudication, cough, wheezing, shortness of breath, nausea, vomiting, abdominal pain, dysuria, hematuria, urinary retention, paralysis, weakness, numbness and tingling. Additional Comments: See HPI for pertinent positives and negatives. All other systems reviewed and negative. (Daniella Sidhu ., PA-C) Objective Vital Signs Date Time Temp Pulse Resp B/P (MAP) Pulse Ox O2 Delivery O2 Flow Rate FiO2 01/03/18 07:35 Room Air 01/03/18 07:01 36.7 80 18 128/63 (84) 92 Room Air 01/03/18 03:12 36.8 80 17 113/60 (77) 94 Room Air 01/02/18 23:32 36.6 93 19 122/69 (86) 93 Room Air 01/02/18 23:32 Room Air 01/02/18 19:19 36.5 95 18 103/61 (75) 90 Room Air 01/02/18 18:05 36.8 81 17 123/70 (87) 97 Nasal Cannula 2.0 01/02/18 17:06 36.5 66 16 116/61 (79) 97 Nasal Cannula 3.0 01/02/18 16:39 36.5 68 15 136/71 (92) 98 Nasal Cannula 3.0 01/02/18 16:28 96 Nasal Cannula 3.0 01/02/18 16:20 96 Nasal Cannula 4.0 01/02/18 16:05 36.4 68 14 146/68 (94) 96 Nasal Cannula 3.0 01/02/18 15:47 36.5 01/02/18 15:46 68 12 100 01/02/18 15:46 68 12 01/02/18 15:45 144/74 01/02/18 15:41 67 23 100 01/02/18 15:41 67 23 01/02/18 15:40 145/67 01/02/18 15:36 68 14 100 01/02/18 15:36 68 14 01/02/18 15:35 146/69 01/02/18 15:31 74 13 100 01/02/18 15:31 75 13 01/02/18 15:30 158/72 01/02/18 15:26 74 24 01/02/18 15:26 73 24 100 01/02/18 15:25 144/78 01/02/18 15:21 78 22 01/02/18 15:21 78 22 100 01/02/18 15:20 149/76 01/02/18 15:16 78 21 94 01/02/18 15:16 77 21 01/02/18 15:15 158/78 01/02/18 15:14 156/82 01/02/18 15:11 36.4 76 16 156/82 96 Oxymask 4 (Daniella Sidhu ., PA-C) Physical Exam Notes: General appearance: +Obese. Well-developed, well-nourished, no apparent distress Head: Normocephalic, atraumatic Eyes: Normal inspection, PERRL, EOMI ENT: Normal ENT inspection, hearing grossly normal, pharynx normal Neck: Supple, no JVD, trachea midline Respiratory/Chest: Lungs clear to auscultation, normal breath sounds, no respiratory distress Cardiovascular: Regular rate & rhythm, no gallop, no murmur Abdomen/GI: Normal bowel sounds, non-tender, soft Extremities/Musculoskeletal: +Incision lower back dressed, drain in place. Normal inspection, no calf tenderness, no pedal edema Neurological/Psych: Alert, normal mood/affect, oriented x 3 Skin: Normal color, warm/dry, no rash (Daniella Sidhu ., PA-C) Laboratory Results Last 24 Hours Test 01/02/18 15:28 01/02/18 17:18 01/02/18 20:36 01/02/18 21:57 Bedside Glucose 156 mg/dl 170 mg/dl 260 mg/dl 259 mg/dl Test 01/03/18 06:18 01/03/18 08:24 01/03/18 13:24 White Blood Count 10.39 K/uL Red Blood Count 3.09 M/uL Hemoglobin 10.4 g/dL Hematocrit 30.3 % Mean Corpuscular Volume 98.1 fL Mean Corpuscular Hemoglobin 33.7 pg Mean Corpuscular Hemoglobin Concent 34.3 g/dl Platelet Count 113 K/uL Mean Platelet Volume 11.1 fL Neutrophils (%) (Auto) 85.8 % Lymphocytes (%) (Auto) 7.4 % Monocytes (%) (Auto) 6.3 % Eosinophils (%) (Auto) 0.0 % Basophils (%) (Auto) 0.1 % Neutrophils # (Auto) 8.92 K/uL Lymphocytes # (Auto) 0.77 K/uL Monocytes # (Auto) 0.65 K/uL Eosinophils # (Auto) 0.00 K/uL Basophils # (Auto) 0.01 K/uL RDW Standard Deviation 50.9 fL RDW Coefficient of Variation 14.2 % Immature Granulocyte % (Auto) 0.4 % Immature Granulocyte # (Auto) 0.04 K/uL Sodium Level 134 mmol/L Potassium Level 4.7 mmol/L Chloride Level 104 mmol/L Carbon Dioxide Level 23 mmol/L Anion Gap 7.0 mmol/L Blood Urea Nitrogen 24 mg/dl Creatinine 1.46 mg/dl Est Creatinine Clear Calc Drug Dose 48.8 ml/min Estimated GFR () 50.5 Estimated GFR (Non- 43.5 BUN/Creatinine Ratio 16.7 Random Glucose 186 mg/dl Calcium Level 8.3 mg/dl Bedside Glucose 189 mg/dl 159 mg/dl (Daniella Sidhu, KIESHA) Assessment and Plan 82 y/o male with a history of HTN, DM II, hypothyroidism, and GERD who presents s/p lumbar decompression with Dr. Wright on 01/02 for medical management. S/p lumbar decompression facetectomies L4-S1, fusion L5-S1--POD #1 - Surgical management, pain management, PT/OT, and DVT prophylaxis as per primary team - Bowel regimen ordered - Encourage incentive spirometer Acute blood loss anemia in postop setting, on chronic anemia - Hgb 10.4 on 01/03, down from 12.1 in pre op labs - Continue to monitor MARIE on CKD stage III -Creatinine 1.46 on 01/03, up from 1.14 in pre op labs -Continue to hold lisinopril and monitor HTN--stable - Continue to hold lisinopril due to MARIE - IV Hydralazine PRN DM II--last HgbA1c 7.1 on 10/02/17 -Continue Lantus 20 units SC qd -Insulin sliding scale -Check BSGs q ac and qhs Hypothyroidism--stable -TSH WNL 10/2017 -Continue Synthroid 112 mcg PO qd GERD -Protonix daily while inpatient, can resume Nexium at discharge Code Status -Level I, FULL RESUSCITATION STATUS Thank you for this consultation. We will continue to follow. (Daniella Sidhu ., KIESHA) I personally interviewed and examined the patient. I agree with history of present illness and physical exam mentioned above, I also performed my own history taking and examination. Past medical history and review of system has been obtained by myself I reviewed all pertinent labs and studies Reviewed current medications I discussed and formulated of the assessment and plan mentioned above. Please refer to the Summary mentioned below. 52-year-old man with history of hypertension, diabetes mellitus type 2, hypothyroidism and GERD. Patient has chronic lower back pain, presented for an elective lumbar decompression surgery. Surgery went uneventful January 02. We will consulted for medical management. Patient creatinine worsened from 1.14 to 1.46 likely ATN secondary to Decrease oral intake. Health nonsteroidal anti-inflammatory drugs and lisinopril IV fluid hydration tomorrow repeat labs General Appearance: not in acute distress Eyes: normal Sclerae, extraocular muscle intact ENT: hearing grossly normal Neck: supple Respiratory/Chest: normal air entry bilateral ,no respiratory distress, no accessory muscle use Cardiovascular: regular rate, rhythm, no murmur Abdomen: non tender, soft, no masses Extremities: no edema musculoskeletal: no significant swelling or inflammation in any joint Neurologic/Psychiatric: Awake alert oriented times place and person moves all extremities sensation intact cranial nerves II-12 appear to be intact Skin: normal color, warm/dry, no rash Nelly Jerez MD, [facility] (Nelly Tovar MD)
[2018-01-03] MEDS: HYDROmorphone INJ 0.5 MG/0.5 ML SYR IV PRN ×2 (15:26→23:06)
[2018-01-03] MEDS ORDERED: RXC5 PO (17:49)
--- NOTE | 2018-01-03 17:50 | Discharge Instructions ---
Discharge Instructions Date of Service Jan 03, 2018. Admission Reason for Admission: Spinal Stenosis Discharge Discharge Diagnosis / Problem: lumbar stenosis Discharge Goals Goal(s): Improve function Activity Recommendations Activity Limitations: per Instructions/Follow-up section . Instructions / Follow-Up Instructions / Follow-Up ACTIVITY RECOMMENDATIONS: SELF CARE INSTRUCTIONS AFTER THORACIC/LUMBAR FUSIONS 1. You may walk to your tolerance. It is good exercise for your legs and back. Expect some back and intermittent leg aches and pains. 2. You may perform "counter-top" level activities (make a sandwich, robyn with a project, etc.). 3. No bending or lifting of more than 10 pounds or back twisting of any nature (roll like a log when turning in bed). 4. You may ride in a car for 20-30 minutes at a time. No driving until after your first visit with your doctor. 5. Frequent changes of position and restricting sitting to 30 minutes at a time will help limit the amount of back spasms and stiffness you may experience. 6. You may discontinue the use of ambulatory aids (cane, crutches, etc.) once your strength and confidence allow. 7. You may continuous vulcanizing machine operator the shower and let water strike your incision when you arrive home at least once daily. Do not take a tub bath, sit in a hot tub or go into a swimming pool until after your first recheck in the office. SPECIAL CARE INSTRUCTIONS: VERY IMPORTANT TO READ AND REVIEW A. Your surgical incision has been closed with a cosmetic suture under the skin that will dissolve in about 6 weeks. In 14 days, you can use a pair of clean scissors and cut the suture that is left outside of the skin at the ends of your incision. 1. The small skin tapes can be removed 7 days after surgery if they have not fallen off by that point. 2. You may keep the wound open to air as much as possible to promote healing after post-op day number 5 unless told otherwise by your doctor. 3. If you think the wound looks like it is becoming infected (redness or worsening drainage) and/or you are experiencing fever, chill or worsening back pain and muscle spasms, contact the office so that we may evaluate you as soon as possible. B. Complications are uncommon, but please contact us if you have any signs or symptoms of: 1. wound infection (fever higher than 102.5 degrees F, redness, separation of wound, drainage, or increasing pain from the incision) 2. blood clots in legs (pain, swelling, redness and warmth in legs) 3. urinary tract infection (fever higher than 102.5 degrees F, burning upon urination or increased frequency of urination) 4. nerve problems (inability to walk on your toes or heels, numbness, loss of bowel or bladder control) 5. any other symptoms that concern you C. Please call the office at if you have any concerns or questions about your operation or recovery. D. No smoking! Smoking drastically decreases the chance of a solid fusion. E. Do not take any anti-inflammatory medications (Indocin, Advil, Motrin, Aspirin, Naprosyn, etc.) as these may inhibit the chance of a solid fusion. Tylenol is okay to take for pain. MANAGING PAIN AFTER SPINAL SURGERY 1. Narcotic medication is intended for short-term use and will be provided for surgical pain. Surgical pain usually lasts for a period of 4-6 weeks. Narcotic medication includes Percocet, Vicodin, Darvocet, Tylenol #3 or Lortab. 2. Longer-term pain is more appropriately treated with non-narcotic medication such as Tylenol ES. 3. Muscle spasm is not appropriately treated with narcotics. Muscle relaxers such as Soma, Flexeril or Skelaxin can be used along with Tylenol ES. 4. Remember that we all live with some "aches and pains". This is not unusual or uncommon after an injury or as we get older. a. Back pain is expected and may include muscle spasms for 4 to 6 weeks after surgery. The pain should gradually improve. If the pain worsens for no apparent reason, please contact the office. b. Intermittent leg pain may also be experienced and should not be concerned about unless it worsens for no apparent reason. If so, please contact the office. 5. We will provide appropriate medication within the normal guidelines of their prescribed use. We will also be very cautious and aware of potential abuse and extended duration of patients' medication needs. a. Pain medications are for your comfort and to assist with sleep and rest so that the tissue can heal. They are not provided in order to return to normal activity and should not be used through the day. To do so or worsening pain at night can result from ongoing tissue damage and development of tolerance to the prescribed medicine. 6. Please allow 2-3 days to process refills. Prescriptions will not be mailed but must be picked up at the office. FOLLOW UP VISIT: Keep your scheduled follow-up appointment. Any questions, please call the office at . Current Hospital Diet Patient's current hospital diet: Diabetes Type 2 Diet Discharge Diet Recommended Diet: Regular Diet Procedures Procedures Performed: 1. Lumbar decompression medial facetectomies foraminotomies L4-5 L5-S1. #2 posterior spinal fusion L5-S1. #3 posterior posterior instrument Tatian L5-S1. #4 interbody fusion L5-S1. #5 placed a peek cage 9 x 26 mm at L5-S1. #6 placement of locally harvested morselized autograft L5-S1. #7 placement InFUSE collagen sponge, Nast graft in the posterior lateral gutters and ostially up in the interbody space. Pending Studies Studies pending at discharge: no Medical Emergencies . Who to Call and When: Medical Emergencies: If at any time you feel your situation is an emergency, please call 911 immediately. . Non-Emergent Contact Non-Emergency issues call your: Primary Care Provider . "Provider Documentation" section prepared by Yash Wright. .
[2018-01-03] MEDS ORDERED: INSULIN GLARGINE SOLOSTAR 100 UNITS/ML 3 ML PEN SC SCH (21:00)
[2018-01-03] MEDS: DOCUSATE SODIUM/SENNA 50/8.6MG TAB PO SCH (21:17)
[2018-01-03 23:24] VITALS: BP 139/70; PULSE 61; TEMP 36.8; O2SAT 93
[2018-01-04] MEDS: LEVOTHYROXINE 112 MCG TAB PO SCH (05:27)
[2018-01-04] MEDS: POLYETHYLENE (MIRALAX) 17 GM PACK PO SCH ×2 (05:27→12:06)
[2018-01-04 06:51] VITALS: BP 125/65; PULSE 75; TEMP 37; O2SAT 94
[2018-01-04 07:40] LABS: HEMATOCRIT 34.9 % (42-52); HEMOGLOBIN 11.6 g/dL (14.0-18.0); MEAN CELL VOLUME 98.9 fL (80-100); MEAN CORPUSCULAR HEMOGLOBIN 32.9 pg (25-34); MEAN CORPUSCULAR HGB CONC 33.2 g/dl (32-36); MEAN PLATELET VOLUME 11.4 fL (7.4-10.4); PLATELET COUNT 115 K/uL (130-400); RED CELL DISTRIBUTION WIDTH CV 14.5 % (11.5-14.5); RED CELL DISTRIBUTION WIDTH SD 51.7 fL (36.4-46.3); WHITE BLOOD COUNT 9.93 K/uL (4.8-10.8)
[2018-01-04 08:04] LABS: CALCIUM 9.1 mg/dl (8.5-10.1); CREATININE 1.49 mg/dl (0.60-1.40); POTASSIUM 4.2 mmol/L (3.5-5.1)
[2018-01-04] MEDS: ASPIRIN 81 MG ECTAB PO SCH (08:46)
[2018-01-04] MEDS: PANTOprazole SOD 40 MG TAB PO SCH (08:46)
[2018-01-04] MEDS: INSULIN ASPART 100 UNITS/ML 3 ML PEN SC SCH ×2 (08:55→12:58)
[2018-01-04] MEDS ORDERED: SODIUM CHLORIDE 0.9% 1000ML 1,000 ML IV SCH (11:00)
[2018-01-04] MEDS ORDERED: TRAM-453 PO (11:06)
--- NOTE | 2018-01-04 11:18 | Progress Note ---
Subjective Date of Service: Jan 04, 2018. Subjective Pt evaluation today including: conversation w/ patient, physical exam, chart review, lab review, review of inpatient medication list Pain: controlled PO Intake: adequate feeling good has no complaint Problem List Medical Problems: (1) Dyspnea Status: Acute Review of Systems Constitutional: No see HPI, No fever, No chills, No sweats, No weight loss, No weakness, No fatigue, No problem reported Eyes: No see HPI, No worsening of vision, No eye pain, No redness, No discharge , No diplopia, No problem reported ENT: No see HPI, No hearing loss, No unusual epistaxis, No nasal symptoms, No sore throat, No tinnitus, No dental problems, No trouble swallowing, No problem reported Respiratory: No see HPI, No cough, No sputum, No wheezing, No shortness of breath, No dyspnea on exertion, No dyspnea at rest, No hemoptysis, No problem reported Cardiac: No see HPI, No chest pain, No orthopnea, No PND, No edema, No claudication, No palpitations, No problem reported Abdomen: No see HPI, No pain, No nausea, No vomiting, No diarrhea, No constipation, No GI bleeding, No problem reported Musculoskeletal: + joint pain, No see HPI, No muscle pain, No swelling, No calf pain, No problem reported Male : No see HPI, No dysuria, No urinary frequency, No incontinence, No nocturia more than once/night, No slowing stream, No hematuria, No sexual dysfunction, No problem reported Neurologic: No see HPI, No memory loss, No paralysis, No weakness, No numbness/ tingling, No vertigo, No balance problems, No problem reported Psychiatric: No see HPI, No depression symptoms, No anhedonism, No anxiety, No insomnia, No substance abuse, No problem reported Heme: No see HPI, No abnormal bleeding/bruising, No clotting problems, No swollen lymph nodes, No night sweats, No problem reported Endo: No see HPI, No fatigue, No excessive thirst, No excessive urination, No problem reported Skin: No see HPI, No rash, No itch, No new/changing skin lesions, No color change, No bleeding, No problem reported Objective Vital Signs Date Time Temp Pulse Resp B/P (MAP) Pulse Ox O2 Delivery O2 Flow Rate FiO2 01/04/18 08:00 Room Air 01/04/18 06:51 37.0 75 15 125/65 (85) 94 Room Air 01/03/18 23:24 36.8 61 16 139/70 (93) 93 Room Air 01/03/18 19:20 Room Air 01/03/18 15:05 36.7 67 19 113/61 (78) 95 Room Air Physical Exam General Appearance: WD/WN, no apparent distress Eyes: normal inspection, EOMI ENT: normal ENT inspection, hearing grossly normal Neck: supple Respiratory/Chest: chest non-tender, lungs clear, normal breath sounds, no respiratory distress, no accessory muscle use Cardiovascular: regular rate, rhythm, no edema, no gallop, no JVD, no murmur Abdomen: normal bowel sounds, non tender, soft, no organomegaly, no pulsatile mass Extremities: normal range of motion, non-tender, normal inspection, no pedal edema, no calf tenderness Neurologic/Psychiatric: child's nurse II-XII nml as tested, no motor/sensory deficits, alert, normal mood/affect, oriented x 3 Skin: normal color, warm/dry, no rash Laboratory Results Last 24 Hours Test 01/03/18 13:24 01/03/18 17:06 01/03/18 20:54 01/04/18 07:17 Bedside Glucose 159 mg/dl 146 mg/dl 164 mg/dl White Blood Count 9.93 K/uL Red Blood Count 3.53 M/uL Hemoglobin 11.6 g/dL Hematocrit 34.9 % Mean Corpuscular Volume 98.9 fL Mean Corpuscular Hemoglobin 32.9 pg Mean Corpuscular Hemoglobin Concent 33.2 g/dl RDW Standard Deviation 51.7 fL RDW Coefficient of Variation 14.5 % Platelet Count 115 K/uL Mean Platelet Volume 11.4 fL Sodium Level 132 mmol/L Potassium Level 4.2 mmol/L Chloride Level 100 mmol/L Carbon Dioxide Level 28 mmol/L Anion Gap 4.0 mmol/L Blood Urea Nitrogen 25 mg/dl Creatinine 1.49 mg/dl Est Creatinine Clear Calc Drug Dose 47.8 ml/min Estimated GFR () 49.2 Estimated GFR (Non- 42.5 BUN/Creatinine Ratio 16.6 Random Glucose 176 mg/dl Calcium Level 9.1 mg/dl Test 01/04/18 08:23 Bedside Glucose 161 mg/dl Assessment and Plan 82 years old man w PMHx of DMII, HTN, CKD Stg II , hypothyroidism and GERD. also has lower back pain, failed out patient conservative management s/p lumbar decompression with Dr. Wright on 01/02 S/p lumbar decompression facetectomies L4-S1, fusion L5-S1--POD #2 Surgical management, pain management, PT/OT, and DVT prophylaxis as per primary team Encourage incentive spirometer MARIE/CKD stage II-III today creatinine is 1.49, I held lisinopril until seen by accounts receivable representative DM II--last HgbA1c 7.1 on 10/02/17 Continue Lantus 20 units SC qd Hypothyroidism--stable TSH WNL 10/2017 Continue Synthroid 112 mcg PO qd GERD -Protonix daily Instructed Do not to take any [id number] pain medicine except Tylenol (do not take any large doses of aspirin, ibuprofen, Motrin, Aleve, Advil, naproxen, diclofenac sodium, oral Voltaren, also not allowed to take fish oil as all these medications increase your incidence of bleeding) You can take Tylenol as needed for pain but not more than 3000 mg per day as a total dose (that is the maximum of 6 tablet, 500 mg each, divided throughout the day) can be discharged from medical point of view asked social manager immunology to get him an appointment with accounts receivable representative in few days given a prescription to recheck renal function
--- NOTE | 2018-01-04 12:07 | Discharge Summary ---
Orthopedic Discharge Summary Admission Date/Reason Jan 02, 2018 at 12:50 Spinal Stenosis. Discharge Date/Disposition Jan 04, 2018 Home Diagnosis Principal Diagnosis: Lumbar spinal stenosis Admission Physical Exam As per Admitting History & Physical. Hospital Course Patient underwent lumbar decompression fusion tolerated this well was taken to the orthopedic floor postoperatively. Postop day #1 he was up and amatory symptoms markedly improved. He progressed the postop day #2. LAURA drain decreasing appropriately. Subsequently discharged home. Discharge orders and instructions found in the chart for further review. Discharge Instructions Please refer to the electronic Patient Visit Report (Discharge Instructions) for additional information.
[2018-01-04 13:53] VITALS: BP 125/65; PULSE 75; TEMP 37; O2SAT 94
[2018-01-04 15:00] VITALS: BP 129/69; PULSE 78; TEMP 36.6; O2SAT 98
[2018-01-04] MEDS: OXYCODONE HCL IR 5 MG TAB (IMMEDIATE RELEASE) PO PRN (18:00)
== END 2018-01-04 19:20 | disposition home or self-care (01) | DRG 454 ==
LOC: C.ACU 09:16 → C.3E 12:50 → ENRESERV 15:42
PROVIDERS: ADMIT Orthopaedic Surgery Orthopaedic Surgery of the Spine; ATTEND Orthopaedic Surgery Orthopaedic Surgery of the Spine
PROC: 0SG30AJ Fusion of Lumbosacral Joint with Interbody Fusion Device, Posterior Approach, Anterior Column, Open Approach (ICD-10-PCS; principal; 2018-01-02 11:45)
PROC: 0ST40ZZ Resection of Lumbosacral Disc, Open Approach (ICD-10-PCS; principal; 2018-01-02 11:45)
PROC: 0SG30J1 Fusion of Lumbosacral Joint with Synthetic Substitute, Posterior Approach, Posterior Column, Open Approach (ICD-10-PCS; principal; 2018-01-02 11:45)
DX: M48.061 Spinal stenosis, lumbar region without neurogenic claudication (principal); D62 Acute posthemorrhagic anemia; N17.9 Acute kidney failure, unspecified; N18.3 Chronic kidney disease, stage 3 (moderate); E11.9 Type 2 diabetes mellitus without complications; I12.9 Hypertensive chronic kidney disease with stage 1 through stage 4 chronic kidney disease, or unspecified chronic kidney disease; E03.9 Hypothyroidism, unspecified; K21.9 Gastro-esophageal reflux disease without esophagitis; Z80.9 Family history of malignant neoplasm, unspecified; Z87.891 Personal history of nicotine dependence; Z79.4 Long term (current) use of insulin; Z79.82 Long term (current) use of aspirin; Z83.3 Family history of diabetes mellitus; Z82.49 Family history of ischemic heart disease and other diseases of the circulatory system

== ENCOUNTER → 2018-01-08 | Outpatient (CLI) | payer BC ==
[~2018-01-08] MED LIST changes: -ACETAMINOPHEN 500 MG TAB PO SCH; -ATROPINE SULFATE 0.1 MG/ML 5ML SYR IV PRN; -CEFAZOLIN 2000MG IV PUSH 15 ML IV SCH; -CELE1CAP30 PO; -CeleBREX 200 MG CAP PO SCH; -EpHEDrine SULFATE INJ 50 MG/ML AMP IV PRN; -FLUMAZENIL 0.1 MG/1 ML 10 ML VIAL IV PRN; -GABAPENTIN 300 MG CAP PO SCH; -HYDROmorphone INJ 0.5 MG/0.5 ML SYR IV PRN; -LABETALOL HCL IV 5 MG/ML 20ML IV PRN; -LISI-729 PO; -LVT/20 PO; -MEPERIDINE HCL 25 MG/ML CARP IV PRN; -MoRPHine SULFATE 4 MG/ML 1 ML CARP\\VIAL IV PRN; -NALOXONE HCL 0.4 MG/1 ML VIAL/CARP IV PRN; -ONDANSETRON INJ 2 MG/ML 2 ML VIAL IV PRN; -PHENYLEPHRINE 100MCG/ML 5ML SYR IV PRN; +RXC5 PO; +TRAM-453 PO
[2018-01-08 12:46] LABS: BLOOD UREA NITROGEN 19 mg/dl (7-18); CALCIUM 8.7 mg/dl (8.5-10.1); CARBON DIOXIDE 26 mmol/L (21-32); CREATININE 1.23 mg/dl (0.60-1.40); GLUCOSE 171 mg/dl (70-99); POTASSIUM 3.7 mmol/L (3.5-5.1); SODIUM 134 mmol/L (136-145)
== END | disposition home or self-care (01) ==
LOC: C.LAB1850 11:34
PROVIDERS: ATTEND Family Medicine
DX: N17.9 Acute kidney failure, unspecified (principal)

== ENCOUNTER → 2018-01-22 | Outpatient (CLI) | payer BC ==
--- NOTE | 2018-01-22 07:45 | DIAGNOSTIC IMAGING REPORT ---
CT SCAN OF THE CHEST WITHOUT IV CONTRAST CLINICAL HISTORY: Follow-up pulmonary nodules. COMPARISON STUDY: Chest CT scans dated 02/08/2017 and 02/03/2016. TECHNIQUE: CT scan of the thorax was performed from the thoracic inlet to the upper abdomen. Images are reviewed in the axial, sagittal, and coronal planes. IV contrast was not administered for this examination as per the referring clinician. A dose lowering technique was utilized adhering to the principles of ALARA. CT DOSE: 856.16 mGy.cm FINDINGS: Thyroid: Atrophic. Thoracic aorta: There is mild atherosclerotic calcification of the thoracic aorta, which is normal in caliber and demonstrates standard 3-vessel arch anatomy. Heart: The heart is normal in size and without pericardial effusion. The coronary arteries are densely calcified. Lungs and pleural spaces: There is emphysematous change and biapical scarring. Foci of subpleural reticulation are again seen throughout both lungs. No airspace consolidation is seen typical for pneumonia and there is no pleural effusion. The trachea and central airways are clear. A 6 mm subpleural nodule seen on image #200, as well as 5 mm nodules in the left lower lobe seen on image #272 and #288 unchanged dating back to 02/03/2016. No new pulmonary lesion is identified. Mediastinum: There is no mediastinal lymphadenopathy. Rosemary: Not well assessed without IV contrast. Axillae: There is no axillary lymphadenopathy. Upper abdomen: There is a small hiatal hernia. Partially visualized upper abdominal viscera is within normal limits. Skeletal structures: The skeletal structures are osteopenic. No lytic or blastic bony lesions are seen. Degenerative changes noted in the shoulders and thoracic spine. IMPRESSION: 1. Emphysema. 2. There is no airspace consolidation or pleural effusion. 3. There are 3 irregular pulmonary nodules in the left lower lobe measuring up to 6 mm. These have not significantly changed dating back to 02/03/2016. No new pulmonary lesion is identified. Electronically signed by: Jose Salazar M.D. 01/22/2018 7:44 AM Dictated Date/Time: 01/22/2018 7:36 AM
== END | disposition home or self-care (01) ==
LOC: C.CTS 07:19
PROVIDERS: ATTEND Internal Medicine
DX: R91.8 Other nonspecific abnormal finding of lung field (principal); J43.9 Emphysema, unspecified

== ENCOUNTER → 2018-02-06 | Outpatient (CLI) | payer BC ==
[~2018-02-06] MED LIST changes: -TRAM-453 PO
--- NOTE | 2018-02-06 13:34 | DIAGNOSTIC IMAGING REPORT ---
ULTRASOUND L VENOUS DOPP LOWER EXT UNILAT CLINICAL HISTORY: Left leg pain and swelling COMPARISON STUDY: January 2016 FINDINGS: Real-time and color flow Doppler imaging were performed. Flow was seen within the femoral, popliteal and calf veins with no intraluminal thrombus demonstrated. The saphenous vein is patent. There is left calf edema. IMPRESSION: No evidence of left lower extremity DVT. Electronically signed by: Braxton Carlton M.D. 02/06/2018 1:33 PM Dictated Date/Time: 02/06/2018 1:32 PM
== END | disposition home or self-care (01) ==
LOC: C.ULTRBC 13:05
PROVIDERS: ATTEND Physician Assistant Medical
DX: R60.0 Localized edema (principal)

== ENCOUNTER → 2018-04-17 | Outpatient (CLI) | payer BC ==
[~2018-04-17] MED LIST changes: -ASPI81TA28 PO; -RXC5 PO
[2018-04-17 14:48] LABS: ALBUMIN 3.7 gm/dl (3.4-5.0); ALKALINE PHOSPHATASE 68 U/L (45-117); ALT/SGPT 31 U/L (12-78); AST/SGOT 23 U/L (15-37); BLOOD UREA NITROGEN 16 mg/dl (7-18); CALCIUM 9.1 mg/dl (8.5-10.1); CARBON DIOXIDE 27 mmol/L (21-32); CREATININE 1.07 mg/dl (0.60-1.40); GLUCOSE 119 mg/dl (70-99); POTASSIUM 4.3 mmol/L (3.5-5.1); SODIUM 139 mmol/L (136-145); TOTAL PROTEIN 7.1 gm/dl (6.4-8.2)
[2018-04-17 14:50] LABS: HEMOGLOBIN A1C 7.4 % (4.5-5.6)
== END | disposition home or self-care (01) ==
LOC: C.LAB1850 13:33
PROVIDERS: ATTEND Nurse Practitioner Adult Health
DX: I10 Essential (primary) hypertension (principal)

== ENCOUNTER → 2018-04-30 | Outpatient (CLI) | payer BC ==
[~2018-04-30] MED LIST changes: +ASPI1TAB83 PO; +LISI-729 PO; +OPTIRAY 320 IV PRN
--- NOTE | 2018-04-30 13:05 | DIAGNOSTIC IMAGING REPORT ---
CT OF THE ABDOMEN AND PELVIS WITH CONTRAST CLINICAL HISTORY: Anemia. Positive fecal occult blood test. COMPARISON STUDY: None. TECHNIQUE: Following IV administration of 91 mL of Optiray-320, axial images of the abdomen and pelvis were obtained from the lung bases to the proximal femurs. Images were reviewed in the axial, sagittal, and coronal planes. IV contrast was administered without complication. A dose lowering technique was utilized adhering to the principles of ALARA. Oral contrast was administered. CT DOSE: 786.16 mGy.cm FINDINGS: A few small left lower lung nodules are unchanged since CT of February 03, 2016. These are benign given stability. Note is made of mild cardiomegaly. No hepatic lesions are present. The spleen, adrenal glands, kidneys and pancreas are unremarkable. There is no biliary or pancreatic ductal dilatation. Pancreatic glandular atrophy is noted. There are postoperative findings within the spine. No abdominal or pelvic lymphadenopathy is present. This extensive sigmoid diverticulosis without evidence for acute diverticulitis. A right colon resection is noted. There is no bowel obstruction. Sensitivity for detection of colonic mucosal lesions is diminished given CT technique but none are identified. Apparent gastric wall thickening involving the proximal to mid stomach is noted. No suspicious osseous lesion is present. There is no hydronephrosis. IMPRESSION: 1. Apparent gastric wall thickening, most evident within the distal body. This is likely due to underdistention however gastritis or mucosal lesion could appear similar and the findings could be correlated with upper endoscopy. 2. Status post right colon resection. No evidence for a bowel obstruction. Decreased sensitivity for detection of colonic mucosal lesions although none identified. No lymphadenopathy. 3. Extensive sigmoid diverticulosis without evidence for acute diverticulitis. Electronically signed by: Christophe Echeverria M.D. 04/30/2018 1:03 PM Dictated Date/Time: 04/30/2018 12:46 PM
== END | disposition home or self-care (01) ==
LOC: C.CTS 10:30
PROVIDERS: ATTEND Registered Nurse
DX: D64.9 Anemia, unspecified (principal); R19.5 Other fecal abnormalities

== ENCOUNTER → 2018-05-07 | Day surgery (SDC) | payer BC ==
[2018-05-06 13:22] VITALS: Ht 186.7 cm; Wt 107.4 kg
[~2018-05-07] VITALS: Ht 186.7 cm; Wt 107.4 kg
[~2018-05-07] MED LIST changes: +ATROPINE SULFATE 0.1 MG/ML 5ML SYR IV PRN; +EpHEDrine SULFATE INJ 50 MG/ML AMP IV PRN; +LIDOCAINE HCL 2% 2 ML VIAL (20MG/ML) ONE; -OPTIRAY 320 IV PRN; +PROPOFOL IV EMULSION 10 MG/ML 20 ML VIAL ONE
--- NOTE | 2018-05-07 11:30 | Endo History and Physical ---
History & Physical Date of Service: May 07, 2018. Chief Complaint: abdnormal ct scan Referring Physician: Dr. Dez Jain History of Present Illness 82 yo CM who presents for EGD secondary to abnormal CT scan. Past Medical History Diabetes, Reflux, Cancer, Thyroid Disease Past Surgical History Hx Cardiac Surgery: No Hx Internal Defibrillator: No Hx Pacemaker: No Hx Abdominal Surgery: Yes (HERNIA REPAIR X5) Hx of Implantable Prosthesis: No Hx Post-Op Nausea and Vomiting: No Hx Cancer Surgery: Yes (SKIN CANCER REMOVALS, COLON RESECTION) Hx Thoracic Surgery: No Hx Orthopedic: Yes (LT SHOULDER RCR REPAIR,L KNEE SCOPE, L5-S1 DECOMPRESSION FUSION) Hx Urinary Tract Surgery: No Family History None Social History Smoking Status: Former Smoker Hx Substance Use: No Hx Alcohol Use: Yes (RARELY) Allergies Coded Allergies: No Known Allergies (Verified , 05/07/18) Current Medications Reported Home Medications Medications Dose Route/Sig Max Daily Dose Days Date Category Prinivil (Lisinopril) 5 Mg Tab 5 Mg PO QAM 05/06/18 Reported Aspirin 81 Mg Tab 1 Tab PO DAILY 05/06/18 Reported Toujeo Solostar (Insulin Glargine) 300 Unit/Ml Inj 2-20 Units INJ QPM 12/04/17 Reported Levothyroxine Sodium 112 Mcg Tab 112 Mcg PO QAM 11/05/17 Reported Novolog Flexpen (Insulin Aspart) 100 Units/Ml Inj 3-5 Units SC TIDM 11/05/17 Reported Vitamin D3 (Cholecalciferol) 1,000 Inter.unit Tab 4,000 Units PO QAM 11/24/15 Reported Vitamin B12 (Cyanocobalamin) 1,000 Mcg Tab 1,000 Mcg PO QAM 11/24/15 Reported Nexium (Esomeprazole Magnesium) 40 Mg Capcr 40 Mg PO QAM 03/25/11 Reported Vital Signs Weight (Kilograms): 107.4 Height (Feet): 6 Height (Inches): 1.5 Date Time Temp Pulse Resp B/P (MAP) Pulse Ox O2 Delivery O2 Flow Rate FiO2 05/07/18 10:55 36.7 56 16 130/74 (92) 100 Room Air Physical Exam General Appearance: WD/WN, no apparent distress Respiratory/Chest: Auscultation: breath sounds normal Cardiovascular: Heart Auscultation: RRR Abdomen: Bowel Sounds: normal Inspection & Palpation: soft, non-distended, no tenderness, guarding & rebound Assessment and Plan Assessment: 82 yo CM who presents for EGD secondary to abnormal CT scan. Plan: Proceed with EGD.
--- NOTE | 2018-05-07 12:18 | Anesthesiology Progress Note ---
Anesthesia Post Op Note Date & Time May 07, 2018 at 12:18 Vital Signs Pain Intensity: 0 Vital Signs Past 12 Hours Date Time Temp Pulse Resp B/P (MAP) Pulse Ox O2 Delivery O2 Flow Rate FiO2 05/07/18 10:55 36.7 56 16 130/74 (92) 100 Room Air Notes Mental Status: alert / awake / arousable, participated in evaluation Pt Amnestic to Procedure: Yes Nausea / Vomiting: adequately controlled Pain: adequately controlled Airway Patency, RR, SpO2: stable & adequate BP & HR: stable & adequate Hydration State: stable & adequate Anesthetic Complications: no major complications apparent
--- NOTE | 2018-05-07 12:20 | GI REPORT ---
Patient Name: Jerardo Cline Procedure Date: 05/07/2018 11:26 AM Date of : 1935 Admit Type: Outpatient Age: 82 Gender: Male Attending MD: Radhames Garcia DO Procedure: Upper GI endoscopy Providers: Radhames Garcia DO Referring MD: Mary Madrid Indications: Abnormal CT of the GI tract Medicines: Monitored Anesthesia Care Complications: No immediate complications. Estimated Blood Loss: Estimated blood loss: none. Procedure: Pre-Anesthesia Assessment: - Prior to the procedure, a History and Physical was performed, and patient medications and allergies were reviewed. The patient's tolerance of previous anesthesia was also reviewed. The risks and benefits of the procedure and the sedation options and risks were discussed with the patient. All questions were answered, and informed consent was obtained. Prior Anticoagulants: The patient has taken aspirin, last dose was 3 days prior to procedure. ASA Grade Assessment: III - A patient with severe systemic disease. After reviewing the risks and benefits, the patient was deemed in satisfactory condition to undergo the procedure. After obtaining informed consent, the endoscope was passed under direct vision. Throughout the procedure, the patient's blood pressure, pulse, and oxygen saturations were monitored continuously. The On-site loaner was introduced through the mouth, and advanced to the second part of duodenum. The upper GI endoscopy was accomplished without difficulty. The patient tolerated the procedure well. Findings: The esophagus was normal. A small hiatal hernia was present. Biopsies were taken with a cold forceps in the gastric antrum for histology. The examined duodenum was normal. Impression: - Normal esophagus. - Small hiatal hernia. - Normal examined duodenum. - Biopsies were taken with a cold forceps for histology in the gastric antrum. Recommendation: - Resume previous diet. - Continue present medications. - Await pathology results. - Return to primary care physician as previously scheduled. Radhames Garcia DO 05/07/2018 12:20:28 PM This report has been signed electronically. Note Initiated On: 05/07/2018 11:26 AM Number of Addenda: 0 I attest to the content of the Intraoperative Record and orders documented therein, exceptions below {[id number]}
--- NOTE | 2018-05-07 12:22 | Discharge Instructions ---
Endoscopy Patient Instructions Date / Procedure(s) Performed May 07, 2018. EGD Allergy Information Coded Allergies: No Known Allergies (Verified , 05/07/18) Discharge Date / Findings May 07, 2018. Gastric antrum biopsies Hiatal hernia Medication Instructions Stopped Medication(s): Aspirin stopped 05-04-18. OK to resume all medications today as prescribed Reported Home Medications Medications Dose Route/Sig Max Daily Dose Days Date Category Prinivil (Lisinopril) 5 Mg Tab 5 Mg PO QAM 05/06/18 Reported Aspirin 81 Mg Tab 1 Tab PO DAILY 05/06/18 Reported Toujeo Solostar (Insulin Glargine) 300 Unit/Ml Inj 2-20 Units INJ QPM 12/04/17 Reported Levothyroxine Sodium 112 Mcg Tab 112 Mcg PO QAM 11/05/17 Reported Novolog Flexpen (Insulin Aspart) 100 Units/Ml Inj 3-5 Units SC TIDM 11/05/17 Reported Vitamin D3 (Cholecalciferol) 1,000 Inter.unit Tab 4,000 Units PO QAM 11/24/15 Reported Vitamin B12 (Cyanocobalamin) 1,000 Mcg Tab 1,000 Mcg PO QAM 11/24/15 Reported Nexium (Esomeprazole Magnesium) 40 Mg Capcr 40 Mg PO QAM 03/25/11 Reported Provider Instructions Activity Restrictions - No exercising or heavy lifting for 24 hours. - Do not drink alcohol the day of the procedure. - Do not drive a car or operate machinery until the day after the procedure. - Do not make any important decisions or sign important papers in 24 hours after the procedure. Following Day: - Return to full activity which may include returning to work/school. Diet Start your diet with liquids and light foods (jello, soup, juice, toast). Then eat your usual diet if not nauseated. Treatment For Common After Affects For mild abdominal pain, bloating, or excessive gas: - Rest - Eat lightly - Lie on right side Follow-Up Information Follow-up with Dr. Dez Jain as scheduled Anesthesia Information What You Should Know You have had a procedure that required some medicine to reduce anxiety and discomfort. This treatment is called moderate sedation. After receiving the treatment, you may be sleepy, but you will be able to breathe on your own. The effects of the treatment may last for several hours. Follow these instructions along with Activity/Diet recommendations noted above: * Do NOT do anything where dizziness or clumsiness would be dangerous. * Rest quietly at home today, then you can be up and about tomorrow. * Have a responsible person stay with you the rest of today. * You may have had an I.V. today. If so, you may take the dressing off later today. Recommendations Call your doctor if: * Trouble breathing * Continuous vomiting for more than 24 hours * Temperature above 101 degrees * Severe abdominal pain or bloating * Pain not relieved by pain medicine ordered * There is increased drainage or redness from any incision * A large amount of rectal bleeding greater than 2-3 tablespoons. (If you had a polyp/s removed or have hemorrhoids, a small amount of blood - from the rectum is to be expected.) * You have any unanswered questions or concerns. IN THE EVENT OF A SERIOUS EMERGENCY, GO TO THE NEAREST EMERGENCY ROOM Your discharge instructions were prepared by provider Radhames Garcia. Patient Instructions Signature Page Jerardo Cline Patient (or Guardian) Signature/Date: I have read and understand the instructions given to me by my caregivers. Caregiver/RN/Doctor Signature/Date: The above-named patient and/or guardian has received patient instructions on this date. + Original Patient Signature Page (only) stays with chart. Please make copy for patient.
[2018-05-07 12:46] VITALS: BP 142/68; PULSE 54; O2SAT 100
== END | disposition home or self-care (01) ==
LOC: C.GI 10:30
PROVIDERS: ATTEND Internal Medicine
DX: R93.3 Abnormal findings on diagnostic imaging of other parts of digestive tract (principal); K44.9 Diaphragmatic hernia without obstruction or gangrene; E11.9 Type 2 diabetes mellitus without complications; K21.9 Gastro-esophageal reflux disease without esophagitis; E03.9 Hypothyroidism, unspecified; Z87.891 Personal history of nicotine dependence; Z79.82 Long term (current) use of aspirin; Z79.899 Other long term (current) drug therapy; Z79.4 Long term (current) use of insulin

== ENCOUNTER 2019-10-03 08:25 | Inpatient (IN) ==
--- NOTE | 2019-09-11 13:19 | PAT Medication Instructions ---
Medication Instructions Date of Service September 11, 2019 Home Medications Medication Instructions Recorded tramadol 50 mg tablet 50 mg PO Q8H PRN #20 tab 04/11/19 lisinopril 5 mg tablet 5 mg PO QAM #90 tab 04/15/19 ipratropium 20 mcg-albuterol 100 1 puffs INH Q4H PRN #4 gm 09/08/19 mcg/actuation mist for inhalation OneTouch Ultra Blue Test Strip #300 ea NS 09/09/19 Novolog Flexpen U-100 Insulin 1 dose SUBCUT DIRECTED Catarina SoloStar U-300 Insulin 1 dose SUBCUT DIRECTED Vitamin D3 4,000 unit PO QAM aspirin 81 mg PO QAM cyanocobalamin (vitamin B-12) [Vitamin B-12] 1,000 mcg PO QAM esomeprazole magnesium [Nexium] 40 mg PO QAM levothyroxine 112 mcg PO QAM tramadol 50 mg tablet 50 mg PO Q8H PRN lisinopril 5 mg tablet 5 mg PO QAM ipratropium 20 mcg-albuterol 100 mcg/actuation mist for inhalation 1 puffs INH Q4H PRN ASK your prescriber and surgeon aspirin 81 mg PO QAM DO NOT take the morning of surgery Novolog Flexpen U-100 Insulin 1 dose SUBCUT DIRECTED Vitamin D3 4,000 unit PO QAM cyanocobalamin (vitamin B-12) [Vitamin B-12] 1,000 mcg PO QAM lisinopril 5 mg tablet 5 mg PO QAM Take morning of surgery With a small sip of water, OTHERWISE NOTHING TO EAT OR DRINK AFTER MIDNIGHT: esomeprazole magnesium [Nexium] 40 mg PO QAM levothyroxine 112 mcg PO QAM tramadol 50 mg tablet 50 mg PO Q8H PRN (okay to take up to 4 hours prior to surgery if needed) ipratropium 20 mcg-albuterol 100 mcg/actuation mist for inhalation 1 puffs INH Q4H PRN (if needed) Take evening before surgery Novolog Flexpen U-100 Insulin 1 dose SUBCUT DIRECTED Toralpho SoloStar U-300 Insulin 1 dose SUBCUT DIRECTED tramadol 50 mg tablet 50 mg PO Q8H PRN (if needed) ipratropium 20 mcg-albuterol 100 mcg/actuation mist for inhalation 1 puffs INH Q4H PRN (if needed) Insulin Dependent Diabetic Patients * Test your blood sugar the morning of surgery * If Blood Sugar is GREATER THAN 150, take HALF of your regular units dose of: Toujeo SoloStar U-300 Insulin 1 dose SUBCUT DIRECTED * If Blood Sugar is LESS THAN 150, DO NOT TAKE ANY: Toujeo SoloStar U-300 Insulin 1 dose SUBCUT DIRECTED Other Notes If you have any questions please call us at [phone] or [phone] or [phone] or [phone]
--- NOTE | 2019-09-18 11:11 | Anesthesiology Consultation ---
Date of Service September 18, 2019 Assessment & Plan (1) Encounter for pre-operative examination: - Awaiting review of preop testing (labs). - Awaiting surgeon-ordered PCP preop evaluation scheduled 09/25 ([facility]). - Check BSG AM DOS Chart Review Chart Review: Patient seen in Pre Admission Testing Teaching & Discussion Pre-Anesthesia Teaching/Discussion Notes: Instructed NPO after midnight before surgery,except medications with 15 cc of water. Medication instructions provided according to the PAT guidelines. History Surgery Operation Date: 10/03/19 09:55 Proposed Procedures p L4-L5 Decompression Fusion, L5-S1 Hardware Removal, Spinal Cord Monitoring - Yash Wright, Height/Weight Height: 6 ft 2 in Weight: 99.7 kg Allergies Allergy/AdvReac Type Severity Reaction Status Date / Time No Known Drug Allergies Allergy Verified 09/10/19 08:14 Medications Home Medications Medication Instructions Recorded Confirmed Last Taken Novolog Flexpen U-100 Insulin 1 dose SUBCUT DIRECTED 11/30/18 09/10/19 04/21/19 Toujeo SoloStar U-300 Insulin 1 dose SUBCUT DIRECTED 11/30/18 09/10/19 04/21/19 Vitamin D3 4,000 unit PO QAM 11/30/18 09/10/19 04/21/19 aspirin 81 mg PO QAM 11/30/18 09/10/19 04/21/19 cyanocobalamin (vitamin B-12) 1,000 mcg PO QAM 11/30/18 09/10/19 04/21/19 [Vitamin B-12] esomeprazole magnesium [Nexium] 40 mg PO QAM 11/30/18 09/10/19 04/22/19 06:00 levothyroxine 112 mcg PO QAM 11/30/18 09/10/19 04/21/19 blood sugar diagnostic #300 ea 03/21/19 06/02/19 04/21/19 lancets #300 ea 03/21/19 06/02/19 04/21/19 pen needle, diabetic 32 gauge x #300 ea 03/21/19 06/02/19 04/21/19 1/4" tramadol 50 mg tablet 50 mg PO Q8H PRN #20 tab 04/11/19 09/10/19 04/21/19 lisinopril 5 mg tablet 5 mg PO QAM #90 tab 04/15/19 09/10/19 04/21/19 ipratropium 20 mcg-albuterol 100 1 puffs INH Q4H PRN #4 gm 09/08/19 09/10/19 Unknown mcg/actuation mist for inhalation [employer] Ultra Blue Test Strip #300 ea NS 09/09/19 Unknown Past Medical History Medical History Diabetes mellitus, type 2 IDDM Diabetic peripheral neuropathy GERD (gastroesophageal reflux disease) controlled Hearing deficit BL H/A History of BPH History of colon cancer s/p colon resection + chemo Hypertension Hypothyroidism Osteoarthritis Pulmonary emphysema stable Pulmonary nodules Spinal stenosis Exercise / Class Metabolic Activity III < 4 Walking/Shop/Light housework Past Family History Family History Unknown Heart disease No family history of bleeding disorder Brother Hemochromatosis Past Surgical History Surgical History History of basal cell carcinoma (BCC) excision History of colon resection History of colonoscopy History of esophagogastroduodenoscopy (EGD) History of hernia repair X 5 History of lumbar laminectomy for spinal cord decompression History of nasal surgery History of phacoemulsification of cataract of left eye with intraocular lens implantation History of squamous cell carcinoma excision History of tooth extraction Past Anesthesia History No Hx of Anesthesia Complications and No Family Hx of Anesthesia Complications History of PONV No Hx of PONV and No Hx of Motion Sickness Social History Smoking Status: Former smoker Do You Dip or Chew Tobacco: No Smoking End Date: QUIT 45 YR AGO Hx Alcohol Use: Yes alcohol intake frequency: holidays/special occasions only Hx Substance Use: No substance use type: does not use Review of Systems Reflux controlled. Patient denies chest pain, shortness of breath, cough, wheezing, palpitations. Physical Exam Vital Signs VITALS BP 101/64 P 57 TEMP 97.5 SP02 100%RA RESP 20 PHYSICAL Full neck and c-spine range of motion. Full TMJ range of motion. TMD 3 finger breaths Mallampati Score 3 Dentition: partial upper/lower Lungs: clear throughout to auscultation Cardiac: regular rate and rhythm, no murmurs noted Spine: normal Carotid arteries: negative bruit Extremities: no edema Testing Laboratory Results 08/15/19 HGBA1C 7.3% Electrocardiogram Date: 11/30/18 SR with frequent PVC's at 93bpm. LAD. Minimal voltage criteria for LVH, may be normal variant. Chest X-Ray Date: 11/30/18 No pneumothorax. No evidence for pulmonary edema. The heart is normal in size. The upper lung zones remain clear. No evidence for pulmonary edema. Left basilar densities persist. No new focal lung consolidations. Stable blunting of the left costophrenic sulcus likely due to the prominent mediastinal fat. No definite pleural effusions. No significant change compared to the prior study. No acute process. Stress Test Date: 02/23/16 Type: exercise Negative exercise stress ECHO/EKG for ischemia at 99% MPHR. No exercise induced chest pain. 6.4 METS. EF 60%. Mildly dilated aortic root. Mild TR.
[2019-09-18 12:35] LABS: Basophils # (auto) 0.07 K/uL (0-0.2); Basophils % (auto) 1.1 %; Eosinophils # (auto) 0.09 K/uL (0-0.5); Eosinophils % (auto) 1.4 %; Hematocrit (blood only) 34.9 % (42-52); Hemoglobin 11.7 g/dL (14.0-18.0); Immature Granulocytes # (auto) 0.02 K/uL (0.00-0.02); Immature Granulocytes % (auto) 0.3 %; Lymphocytes # (auto) 1.65 K/uL (1.2-3.4); Lymphocytes % (auto) 24.8 %; Mean Corpuscular Hemoglobin 33.5 pg (25-34); Mean Corpuscular Hgb Conc 33.5 g/dL (32-36); Mean Platelet Volume 11.6 fL (7.4-10.4); Monocytes # (auto) 0.57 K/uL (0.11-0.59); Monocytes % (auto) 8.6 %; Neutrophils # (auto) 4.24 K/uL (1.4-6.5); Neutrophils % (auto) 63.8 %; Platelet Count 128 K/uL (130-400); RDW Coefficient of Variation 13.5 % (11.5-14.5); RDW Standard Deviation 48.8 fL (36.4-46.3); Red Blood Count 3.49 M/uL (4.7-6.1); White Blood Count 6.64 K/uL (4.8-10.8)
[2019-09-18 12:36] LABS: Appearance Urine Clear (Clear); Bilirubin Urine Negative (Negative); Blood Urine Negative (Negative); Color Urine Yellow; Glucose Urine UA 2+ (Negative); Ketones Urine Negative (Negative); Leukocyte Esterase Urine Negative (Negative); Nitrite Urine Negative (Negative); Protein Urine Negative (Negative); Specific Gravity Urine 1.021 (1.000-1.030); Urobilinogen Urine Negative (Negative)
[2019-09-18 12:43] LABS: BUN Creatinine Ratio 15.7 (10-20); Calcium 9.3 mg/dl (8.5-10.1); Creatinine Clr Calc Pharmacy 47.6 ml/min; Est GFR (African American) 51.4; Est GFR (Non-African American) 44.3; Potassium 4.4 mmol/L (3.5-5.1)
[2019-09-18 12:50] LABS: Prothrombin Time 10.7 Seconds (9.0-12.0)
[~2019-10-03 08:25] MED LIST changes: +ACETAMINOPHEN 500 MG TAB PO SCH; -ASPI1TAB83 PO; -ATROPINE SULFATE 0.1 MG/ML 5ML SYR IV PRN; +CEFAZOLIN 2000MG 2,000 MG/15 ML SYR IV SCH; -CYAN100020 PO; +CeleBREX 200 MG CAP PO SCH; -EpHEDrine SULFATE INJ 50 MG/ML AMP IV PRN; +GABAPENTIN 300 MG CAP PO SCH; -INSU1.2I INJ; -LEVO112T4 PO; -LIDOCAINE HCL 2% 2 ML VIAL (20MG/ML) ONE; -LISI-729 PO; +LR 15ML/HR IV SCH; -NVLGI/PEN SC; -NXM/40 PO; -PROPOFOL IV EMULSION 10 MG/ML 20 ML VIAL ONE; -VTMD1000 PO
[2019-10-03] MEDS ORDERED: PROPOFOL IV EMULSION 10 MG/ML 20 ML VIAL IV ONE (08:30)
[2019-10-03] MEDS ORDERED: GLYCOPYRROLATE 0.2 MG/ML VIAL ONE (08:30)
[2019-10-03] MEDS ORDERED: DEXAMETHASONE SOD INJ 4 MG/ML VIAL ONE (08:30)
[2019-10-03] MEDS ORDERED: ROCURONIUM BROMIDE 10 MG/ML 5 ML VIAL ONE (08:30)
[2019-10-03] MEDS ORDERED: fentaNYL citrate 100 MCG/2 ML VIAL ONE (08:30)
[2019-10-03] MEDS ORDERED: ONDANSETRON INJ 2 MG/ML 2 ML VIAL ONE (08:30)
[2019-10-03] MEDS ORDERED: HYDROmorphone INJ 2 MG/ML SYR/VIAL ONE (08:30)
[2019-10-03] MEDS ORDERED: NEOSTIGMINE METHYLSULFATE 1 MG/ML 10ML VIAL ONE (08:30)
[2019-10-03] MEDS ORDERED: LIDOCAINE HCL 2% 2 ML VIAL/AMP(20MG/ML) INFIL ONE (08:30)
--- NOTE | 2019-10-03 09:35 | History & Physical Bridge Note ---
Date of Service October 03, 2019 History & Physical Bridge Note I have examined the patient, reviewed the History & Physical and in the interval since the performance of the History & Physical I have noted the following changes of clinical significance: no changes noted
--- NOTE | 2019-10-03 09:36 | History & Physical Report ---
Date of Service October 03, 2019 Assessment & Plan (1) Neurogenic claudication due to lumbar spinal stenosis: L4-L5 decompression fusion, L5-S1 hardware removal Present on Admission?: Yes History of Present Illness Chief Complaint: Back and left leg pain Primary Care Provider: Dez Jain MD This is a 83-year-old male presents with chronic persistent worsening left leg pain. After failing extensive course of nonoperative care is here for surgical intervention. Allergies Allergy/AdvReac Type Severity Reaction Status Date / Time No Known Drug Allergies Allergy Verified 10/01/19 08:46 Home Medications Home Medications Medication Instructions Recorded Confirmed Type Novolog Flexpen U-100 Insulin 1 dose SUBCUT DIRECTED 11/30/18 10/01/19 History Toujeo SoloStar U-300 Insulin 1 dose SUBCUT DIRECTED 11/30/18 10/01/19 History Vitamin D3 4,000 unit PO QAM 11/30/18 10/01/19 History aspirin 81 mg PO QAM 11/30/18 10/01/19 History cyanocobalamin (vitamin B-12) 1,000 mcg PO QAM 11/30/18 10/01/19 History [Vitamin B-12] esomeprazole magnesium [Nexium] 40 mg PO QAM 11/30/18 10/01/19 History levothyroxine 112 mcg PO QAM 11/30/18 10/01/19 History blood sugar diagnostic #300 ea 03/21/19 10/01/19 History lancets #300 ea 03/21/19 10/01/19 History pen needle, diabetic 32 gauge x #300 ea 03/21/19 10/01/19 History 1/4" tramadol 50 mg tablet 50 mg PO Q8H PRN #20 tab 04/11/19 10/01/19 Rx lisinopril 5 mg tablet 5 mg PO QAM #90 tab 04/15/19 10/01/19 Rx ipratropium 20 mcg-albuterol 100 1 puffs INH Q4H PRN #4 gm 09/08/19 10/01/19 Rx mcg/actuation mist for inhalation [employer] Ultra Blue Test Strip #300 ea NS 09/09/19 10/01/19 Rx Past Med/Surg History Medical History Diabetes mellitus, type 2 IDDM Diabetic peripheral neuropathy GERD (gastroesophageal reflux disease) controlled Hearing deficit BL H/A History of BPH History of colon cancer s/p colon resection + chemo Hypertension Hypothyroidism Osteoarthritis Pulmonary emphysema stable Pulmonary nodules Spinal stenosis Surgical History History of basal cell carcinoma (BCC) excision History of colon resection History of colonoscopy History of esophagogastroduodenoscopy (EGD) History of hernia repair X 5 History of lumbar laminectomy for spinal cord decompression History of nasal surgery History of phacoemulsification of cataract of left eye with intraocular lens implantation History of squamous cell carcinoma excision History of tooth extraction Family History Unknown Heart disease No family history of bleeding disorder Brother Hemochromatosis Social History Preferred Language: Mongolian Communication Ability: Effective Tissue Recovery Technician Required: No Beliefs That Will Affect Care: None Current Living Situation: Spouse Feels Safe at Home: Yes Safety Concerns: Feels Safe At This Time Smoking Status: Former smoker Tobacco Type: smokeless tobacco ; Do You Dip or Chew Tobacco: No ; Smoking End Date: QUIT 45 YR AGO ; Second Hand Exposure: No ; Hx Alcohol Use: Yes Hx Substance Use: No caffeine: Yes Seatbelt Use: always Physical Exam Physical Exam: Patient is alert and oriented neurologically intact. Results & Data Vital Signs (Past 12 Hours) Vital Signs Temp Pulse Resp BP Pulse Ox 10/03/19 08:49 36.6 C 60 18 134/66 100
[2019-10-03] MEDS ORDERED: BUPIVACAINE/EPINEPHRINE 0.5% MPF 1:200,000 10 ML VIAL ONE (09:56)
[2019-10-03] MEDS ORDERED: BACITRACIN INJ 50,000 UNIT VIAL ONE (09:57)
[2019-10-03] MEDS ORDERED: ePHEDrine sulfate 50 MG/ML AMP IV PRN (12:11)
[2019-10-03] MEDS ORDERED: HYDROmorphone INJ 1 MG/ML SYRINGE IV PRN ×2 (12:11→14:07)
[2019-10-03] MEDS ORDERED: PROMETHAZINE HCL 12.5 MG in SODIUM CHLORIDE 0.9% 50 ML IV PRN ×2 (12:11→14:07)
[2019-10-03] MEDS ORDERED: ATROPINE SULFATE 0.1 MG/ML 10ML SYR IV PRN (12:11)
[2019-10-03] MEDS ORDERED: LABETALOL HCL IV 5 MG/ML 20ML IV PRN (12:11)
[2019-10-03] MEDS ORDERED: NALOXONE HCL 0.4 MG/1 ML VIAL/CARP IV PRN ×2 (12:11→14:07)
[2019-10-03] MEDS ORDERED: ONDANSETRON INJ 2 MG/ML 2 ML VIAL IV PRN ×2 (12:11→14:07)
[2019-10-03] MEDS ORDERED: FLUMAZENIL 0.1 MG/1 ML 10 ML VIAL IV PRN (12:11)
[2019-10-03] MEDS ORDERED: fentaNYL citrate 100 MCG/2 ML VIAL IV PRN (12:11)
[2019-10-03] MEDS ORDERED: FLOSEAL HEMOSTATIC MATRIX 10ML TOP ONE (12:17)
--- NOTE | 2019-10-03 12:25 | Operative Report ---
Post Operative Report Pre & Post Diagnosis Operation Date: 10/03/19 09:55 Pre-Op Diagnosis: Lumbar spinal stenosis with neurogenic claudication Post-Op Diagnosis: Same I identified the patient and participated in the time-out.: Yes Procedure Operation Date: 10/03/19 09:55 Actual Procedures #1 removal of posterior instrumentation L5-S1. #2 expiration of fusion L5-S1. #3 lumbar decompression with medial facetectomy foraminotomies L4-5. #4 posterior spinal fusion L4-5. #5 placement of posterior instrumentation L4-5 L5-S1. #6 interbody fusion L4-5. #7 placement of peek cage 14 x 26 mm at L4-5. #8 placement locally harvested morselized autograft in the posterior lateral gutters. #9 placement infuse collagen sponge, master graft in the posterior lateral gutters and ostial amp and interbody space. Surgeon Yash Wright, Wing Mailer Machine Operator Dinesh Funes Estimated Blood Loss 100 Findings Consistent with Post-Op Diagnosis Specimens None Indications This is a 83-year-old male who presents with above-mentioned diagnosis after failing extensive course of nonoperative care is here for surgical intervention. Description of Procedure Patient was met with identified informed consent obtained. Patient was then taken to the operative suite underwent intubation placed in a prone position the Alejandro table on top of the Cr frame. All bony prominences well-padded eyes inspected to ensure no external pressure placed upon them. This point the lumbar spine was prepped and draped in a sterile fashion. Sharp dissection with the assistance of Bovie cautery was performed down to and exposing the lamina and transverse processes of L4 and L5 as well as instrumentation L5-S1 bilaterally. I then proceeded with the hardware at L5 and S1 bilaterally explore the fusion mass noting it to be intact. Then performed a complete laminectomy of L4 including medial facetectomy foraminotomy on the left to address severe compression of the exiting L4 nerve root. After this complete pedicle screws were placed in L4 L5-S1 levels bilaterally with assistance of fluoroscopy and appropriately sized salud placed. By way of a transforaminal approach on the left complete discectomy was performed endplates curetted to subcortical leading bone and a 14 x 26 mm peek cage filled with osteo-bone graft tapped in position. The rods were then locked in final position bilaterally. Transverse processes of L4-L5 and sacral ala burred to subcortical bleeding bone. Infuse collagen sponge master graft and local autograft was placed in the posterior lateral gutters. 15 round LAURA drain inserted. Incision was then closed with 1 Vicryl in the fascia 2-0 Vicryl subcutaneously and 4 Monocryl for final skin closure. Steri-Strips dressings placed. Patient will continue to PACU stable disc. Please note Dinesh Funes was present at the entire procedure involved the patient positioning complex portions of the surgery and final skin closure. Lastly spinal cord monitoring was utilized that the procedure no changes noted. I attest to the content of the Intraoperative Record and any orders documented therein. Any exceptions are noted below.
--- NOTE | 2019-10-03 13:48 | Anesthesiology Progress Note ---
Date of Service October 03, 2019 Anesthesia Post Procedure Vital Signs Vital Signs: Temp Pulse Pulse Resp BP Pulse Ox 10/03/19 13:45 36.8 C 75 12 137/68 94 10/03/19 13:35 36.8 C 76 16 140/73 96 10/03/19 13:25 36.8 C 768 H 21 142/75 H 96 10/03/19 13:15 36.8 C 83 15 137/67 97 10/03/19 13:05 87 16 155/67 H 99 10/03/19 12:55 72 15 149/57 H 100 10/03/19 12:45 36.2 C L 74 18 153/64 H 99 10/03/19 08:49 36.6 C 60 18 134/66 100 Pain Intensity Left Leg: Pain Intensity: 0 Transfer of Care Handoff Completed per policy Notes Mental Status: alert / awake / arousable Patient Amnestic to Procedure: Yes Nausea / Vomiting: adequately controlled Pain: adequately controlled Airway Patency, RR, SpO2: stable & adequate BP & HR: stable & adequate Hydration State: stable & adequate Anesthetic Complications: no major complications apparent
[2019-10-03] MEDS ORDERED: bisacodyL 10 MG SUPP PR PRN (14:07)
[2019-10-03] MEDS ORDERED: TRAMADOL HCL 50 MG TABLET PO PRN (14:07)
[2019-10-03] MEDS ORDERED: DO NOT ADMINISTER FLU VACCINE PRN (14:07)
[2019-10-03] MEDS ORDERED: IPRATROPIUM BROMIDE/ALBUTEROL respimat INH INH PRN (14:07)
[2019-10-03] MEDS ORDERED: ALUMINUM/MAGNESIUM SUSP 30 ML UDC PO PRN (14:07)
[2019-10-03] MEDS ORDERED: MAGNESIUM HYDROXIDE SUSP 30 ML UDC PO PRN (14:07)
[2019-10-03] MEDS ORDERED: SOD PHOSPHATE/SOD BIPHOSPHATE ENEMA 132 ML BTL PR PRN (14:07)
[2019-10-03] MEDS ORDERED: ACETAMINOPHEN 500 MG TAB PO PRN (14:07)
[2019-10-03] MEDS ORDERED: LORazepam 0.5 MG TAB PO PRN (14:07)
[2019-10-03] MEDS ORDERED: FAMOTIDINE 20 MG TAB PO PRN (14:07)
[2019-10-03] MEDS ORDERED: HYDROmorphone INJ 0.5 MG/0.5 ML SYR IV PRN (14:07)
[2019-10-03] MEDS ORDERED: LORazepam 0.5 MG/1 ML VIAL IV PRN (14:07)
[2019-10-03] MEDS ORDERED: METOCLOPRAMIDE HCL INJ 5 MG/ML 2 ML VIAL IV PRN (14:07)
[2019-10-03] MEDS ORDERED: DO NOT ADMINISTER PNEUMOCOCCAL VACCINE PRN (14:07)
[2019-10-03] MEDS ORDERED: ACETAMINOPHEN 1,000 MG/100 ML VIAL IV PRN (14:07)
[2019-10-03] MEDS ORDERED: ONDANSETRON 4 MG OD TAB PO PRN (14:07)
[2019-10-03] MEDS: SODIUM CHLORIDE 0.9% 1000ML 1,000 ML IV SCH ×2 (14:31→23:57)
--- NOTE | 2019-10-03 14:47 | Fluoroscopy Report ---
LUMBAR SPINE, INTRAOPERATIVE FLUOROSCOPY HISTORY: L4 S1 decompression and fusion. FLUOROSCOPY TIME: 10. FINDINGS: Intraoperative fluoroscopy was provided for the lumbar spine. 2 fluoroscopic spot images we re obtained. Posterior decompression fusion from L4 through S1 with pedicle screws and rods. The hard murphy appears intact. IMPRESSION: Fluoroscopy provided for a L4-S1 posterior decompression and fusion. ACT 112: Negative or not required by law. Electronically signed by: Zay Mark M.D. 10/03/2019 2:45 PM
--- NOTE | 2019-10-03 17:36 | Hospitalist Progress Note ---
Date of Service October 03, 2019 Assessment & Plan (1) Neurogenic claudication due to lumbar spinal stenosis: Now seems to be improved almost immediately post spine surgery. (2) Diabetes mellitus, type 2: Continue insulin managementpharmacy consult for glycemic control (3) Anemia: Followanticipated drop in hemoglobin postop, but right now he appears hemodynamically stable (4) Hypertension: Hold DOC inhibitor until it is clear what his kidney function is doing with postop hemodynamics. Otherwise follow (5) Chronic kidney disease, stage II (mild): Likely to be stable, he does not seem to have lost a lot of blood with surgery, but as above noted hold DOC inhibitor until we have a.m. CBC and basic metabolic panel. (6) DVT prophylaxis: Per orthopedics. Subjective Patient seen postop. Laying in bed no distress. He notes that he can immediately feel leg improvement. He has far less pain. He has no significant numbness or weakness. He denies any chest pain or shortness of breath. Has really no complaints whatsoever and is very pleased with how he is feeling. Review of Systems Review of Systems: All systems reviewed & are unremarkable except as noted in HPI & below Physical Exam Physical Exam: In general he is awake and alert pleasant no distress. HEENT normocephalic atraumatic mucous membranes are moist. Breathing unlabored on 2 L of nasal cannula no distress no accessory muscle use. Extremities show no cyanosis clubbing or edema, distally he is neurovascularly intact. Cranial nerves II through XII are grossly intact as well. Results & Data Vital Signs (Past 12 Hours) Vital Signs Temp Pulse Pulse Resp BP BP Pulse Ox 10/03/19 17:14 98.4 F 78 16 130/62 98 10/03/19 16:36 98.2 F 76 16 142/61 H 99 10/03/19 15:09 97.9 F 88 18 150/69 H 100 10/03/19 14:29 66 18 128/61 97 10/03/19 14:00 98.2 F 74 16 131/63 94 10/03/19 13:45 98.2 F 75 12 137/68 94 10/03/19 13:35 98.2 F 76 16 140/73 96 10/03/19 13:25 98.2 F 768 H 21 142/75 H 96 10/03/19 13:15 98.2 F 83 15 137/67 97 01/10/20 13:05 87 16 155/67 H 99 10/03/19 12:55 72 15 149/57 H 100 10/03/19 12:45 97.2 F L 74 18 153/64 H 99 10/03/19 08:49 97.9 F 60 18 134/66 100 PG Care Time/CCT Total # of Minutes Spent Total Time Spent with Patient: Total time spent is greater than 50% in coordination of care (as documented) at patient's floor/unit and/or counseling patient:
[2019-10-03] MEDS: CEFAZOLIN 2000MG 2,000 MG/15 ML SYR IV SCH (17:57)
[2019-10-03] MEDS ORDERED: PHARMACY GLYCEMIC MGMT CONSULT PRN (18:24)
[2019-10-03] MEDS ORDERED: CARBOHYDRATES FOR HYPOGLYCEMIA PO PRN (18:30)
[2019-10-03] MEDS ORDERED: DEXTROSE 50% 50 ML SYRINGE IV PRN (18:30)
[2019-10-03] MEDS ORDERED: GLUCAGON FOR INJ 1 MG VIAL IM PRN (18:30)
[2019-10-03] MEDS ORDERED: GLUCOSE 40% GEL 15 GM TUBE PO PRN (18:30)
[2019-10-03] MEDS ORDERED: GLUCOSE 10 TABS/TUBE PO PRN (18:30)
[2019-10-03] MEDS ORDERED: INSULIN ASPART 100 UNITS/ML 3 ML PEN SC ONE (18:45)
[2019-10-03] MEDS ORDERED: INSULIN GLARGINE SOLOSTAR 100 UNITS/ML 3 ML PEN SC ONE (19:00)
[2019-10-03] MEDS: DOCUSATE SODIUM/SENNA 50/8.6MG TAB PO SCH (21:39)
[2019-10-03] MEDS: INSULIN ASPART 100 UNITS/ML 3 ML PEN SC SCH (21:39)
[2019-10-04] MEDS: INSULIN ASPART 100 UNITS/ML 3 ML PEN SC SCH ×6 (00:29→22:19)
[2019-10-04] MEDS: CEFAZOLIN 2000MG 2,000 MG/15 ML SYR IV SCH (02:53)
[2019-10-04 05:24] LABS: Basophils # (auto) 0.01 K/uL (0-0.2); Basophils % (auto) 0.1 %; Hematocrit (blood only) 27.1 % (42-52); Hemoglobin 9.2 g/dL (14.0-18.0); Immature Granulocytes # (auto) 0.02 K/uL (0.00-0.02); Immature Granulocytes % (auto) 0.2 %; Lymphocytes # (auto) 1.07 K/uL (1.2-3.4); Lymphocytes % (auto) 10.9 %; Mean Corpuscular Hemoglobin 33.5 pg (25-34); Mean Corpuscular Hgb Conc 33.9 g/dL (32-36); Mean Corpuscular Volume 98.5 fL (80-100); Mean Platelet Volume 10.7 fL (7.4-10.4); Monocytes # (auto) 0.85 K/uL (0.11-0.59); Monocytes % (auto) 8.7 %; Neutrophils # (auto) 7.87 K/uL (1.4-6.5); Neutrophils % (auto) 80.1 %; Platelet Count 112 K/uL (130-400); RDW Coefficient of Variation 13.9 % (11.5-14.5); RDW Standard Deviation 49.8 fL (36.4-46.3); Red Blood Count 2.75 M/uL (4.7-6.1); White Blood Count 9.82 K/uL (4.8-10.8)
[2019-10-04 05:41] LABS: BUN Creatinine Ratio 14.1 (10-20); Calcium 8.5 mg/dl (8.5-10.1); Creatinine Clr Calc Pharmacy 53.8 ml/min; Est GFR (African American) 59.3; Est GFR (Non-African American) 51.2; Potassium 4.1 mmol/L (3.5-5.1)
[2019-10-04] MEDS: LEVOTHYROXINE SODIUM 112 MCG TABLET PO SCH (05:48)
[2019-10-04] MEDS: POLYETHYLENE (MIRALAX) 17 GM PACK PO SCH ×3 (05:48→17:35)
[2019-10-04 06:17] LABS: Estimated Average Glucose 183 mg/dl
[2019-10-04] MEDS: CYANOCOBALAMIN 500 MCG TABLET (VITAMIN B-12) PO SCH (08:44)
[2019-10-04] MEDS: ASPIRIN 81 MG ECTAB PO SCH (08:45)
[2019-10-04] MEDS: CHOLECALCIFEROL 1,000 UNITS TAB PO SCH (08:46)
[2019-10-04] MEDS: OXYCODONE HCL IR 5 MG TAB (IMMEDIATE RELEASE) PO PRN ×3 (08:47→22:21)
[2019-10-04] MEDS ORDERED: lisinopriL 5 MG TAB PO SCH (09:00)
--- NOTE | 2019-10-04 09:49 | Orthopedic Progress Note ---
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 Present on Admission?: Yes Subjective Back pain controlled left leg symptoms markedly improved. Physical Exam Physical Exam: Patient is in the chair at the bedside. He has good strength testing. Results & Data Vital Signs (Past 12 Hours) Vital Signs Temp Pulse Resp BP Pulse Ox 10/04/19 06:29 36.7 C 61 17 114/47 L 95 10/04/19 04:00 36.9 C 65 18 117/48 L 98 10/03/19 23:27 36.7 C 70 18 116/48 L 98
--- NOTE | 2019-10-04 11:14 | Pharmacy Report ---
Glycemic Control Consultation - Date of Service October 04, 2019 - Scope Scope: Glycemic Pharmacist consulted by Dr Zimmer on 10/03 for glycemic control and to write orders per [facility] inpatient glycemic control protocol - Objective Weight: 100.3 kg Accuchecks BSG (last 24hrs): 10/03/19 10/03/19 10/03/19 12:48 14:03 17:28 Glucose POC Glucose 185 H 207 H 300 H 10/03/19 10/03/19 10/03/19 17:29 18:24 21:32 Glucose POC Glucose 295 H 284 H 269 H 10/04/19 10/04/19 10/04/19 00:25 04:02 05:03 Glucose 137 H POC Glucose 195 H 147 H 10/04/19 08:18 Glucose POC Glucose 154 H Laboratory Data (last 24hrs): 10/04/19 05:03 Potassium 4.1 Carbon Dioxide 25 Anion Gap 3.0 Creatinine 1.27 Est Cr Clr Drug Dosing 53.8 HbA1c: Hemoglobin A1c 8.0 % (4.5-5.6) H 10/04/19 05:03 - Recent Pertinent Medications Outpatient Anti-diabetic Regimen: * Toujeo 20 units qHS * Novolog 10-12 units per meal * A1c = 8 % 10/04/19 The patient is currently receiving: * Basal insulin: Lantus 40 units x 1 last evening * Correctional Insulin: Novolog Correction per scale ACHS Goal Range: Low 110 mg/dL - High 140 mg/dL Correction Factor: 15 mg/dL/unit * Prandial insulin: Per carb ratio of 1 unit per 5 grams CHO consumed Risk Factors for Insulin Resistance: * Steroids: Decadron 8 mg IV intraop * Recent Surgery: POD 1 s/p spinal surgery * Diet: T2DM - Assessment & Plan Assessment & Plan: ASSESSMENT: * 83 y/o M admitted s/p spinal surgery on 10/03. PMH pertinent for T2DM, managed with basal + bolus insulin as an outpatient. He received intraop steroids so insulin doses were stressed yesterday. Fasting BSG = 137 mg/dL this AM. * Will plan to continue with tightened Novolog parameters until lunch today. Decadron seems to have worn off quickly since lunch BSG at 103 mg/dL. Reduce Lantus to outpatient dose starting tonight. PLAN FOR INPATIENT GLYCEMIC CONTROL: * Basal insulin - resume outpatient dosing * Lantus 20 units qHS * Bolus insulin * NovoLog per scale ACHS or Q6hrs while NPO * Goal Range: Low 110 mg/dL - High 140 mg/dL * Correction Factor: 25 mg/dL/unit * Nutritional / Prandial insulin per carb ratio of 1 unit per 8 gm CHo Discharge Recommendations: * A1c 8% on 10/04/19 * Goal A1c < 8 % based on age and comorbidities * Resume outpatient regimen on discharge Thank you.
--- NOTE | 2019-10-04 13:35 | Anesthesiology Progress Note ---
Date of Service October 04, 2019 Anesthesia Post Procedure Vital Signs Vital Signs: Temp Pulse Pulse Pulse Resp BP BP 10/04/19 11:48 36.7 C 69 18 123/62 10/04/19 06:29 36.7 C 61 17 114/47 L 10/04/19 04:00 36.9 C 65 18 117/48 L 10/03/19 23:27 36.7 C 70 18 116/48 L 10/03/19 21:20 36.9 C 74 16 131/69 10/03/19 17:14 36.9 C 78 16 130/62 10/03/19 16:36 36.8 C 76 16 142/61 H 10/03/19 15:09 36.6 C 88 18 150/69 H 10/03/19 14:29 66 18 128/61 10/03/19 14:00 36.8 C 74 16 131/63 10/03/19 13:45 36.8 C 75 12 137/68 Pulse Ox 10/04/19 11:48 97 10/04/19 06:29 95 10/04/19 04:00 98 10/03/19 23:27 98 10/03/19 21:20 95 10/03/19 17:14 98 10/03/19 16:36 99 10/03/19 15:09 100 10/03/19 14:29 97 10/03/19 14:00 94 10/03/19 13:45 94 Pain Intensity Left Leg: Pain Intensity: 0 Back: Pain Intensity: 2 Notes Mental Status: alert / awake / arousable Patient Amnestic to Procedure: Yes Nausea / Vomiting: adequately controlled Pain: adequately controlled Airway Patency, RR, SpO2: stable & adequate BP & HR: stable & adequate Hydration State: stable & adequate Anesthetic Complications: no major complications apparent and Pt Satisfied with anesthetic care
--- NOTE | 2019-10-04 17:25 | Hospitalist Progress Note ---
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 (2) Diabetes mellitus, type 2: Continue insulin managementpharmacy consult for glycemic controlsugars overall acceptable (3) Anemia: Showed about an expected drop in hemoglobin postop, but no hemodynamic instability. (4) Hypertension: Creatinine goodcan resume DOC inhibitor. (5) Chronic kidney disease, stage II (mild): Stable postop (6) DVT prophylaxis: Per orthopedics. (7) Discharge planning issues: Medically stable, pharmacy is assisting in sugar management, we will sign off at this time. Please do not hesitate to call if we can be of further assistance. Subjective Feels really good. Really pleased with his leg pain. No breathing issues, no other problems. Review of Systems Review of Systems: All systems reviewed & are unremarkable except as noted in HPI & below Physical Exam Physical Exam: General he is awake and alert pleasant no distress. HEENT normocephalic atraumatic mucous membranes are moist. Breathing unlabored no accessory muscle use good effort. Skin shows no rashes no pallor or icterus. Neuro shows no focal deficits. Results & Data Vital Signs (Past 12 Hours) Vital Signs Temp Pulse Pulse Resp BP Pulse Ox 10/04/19 15:58 97 10/04/19 15:14 97.9 F 17 145/68 H 97 10/04/19 11:48 98.1 F 69 18 123/62 97 10/04/19 06:29 98.1 F 61 17 114/47 L 95 PG Care Time/CCT Total # of Minutes Spent Total Time Spent with Patient: Total time spent is greater than 50% in coordination of care (as documented) at patient's floor/unit and/or counseling patient:
[2019-10-04] MEDS: INSULIN GLARGINE SOLOSTAR 100 UNITS/ML 3 ML PEN SC SCH (22:17)
[2019-10-04] MEDS: DOCUSATE SODIUM/SENNA 50/8.6MG TAB PO SCH (22:17)
[2019-10-05] MEDS: POLYETHYLENE (MIRALAX) 17 GM PACK PO SCH ×4 (00:10→17:21)
[2019-10-05] MEDS: LEVOTHYROXINE SODIUM 112 MCG TABLET PO SCH (06:02)
[2019-10-05] MEDS: OXYCODONE HCL IR 5 MG TAB (IMMEDIATE RELEASE) PO PRN ×4 (06:02→21:17)
[2019-10-05] MEDS: ASPIRIN 81 MG ECTAB PO SCH (08:51)
[2019-10-05] MEDS: CHOLECALCIFEROL 1,000 UNITS TAB PO SCH (08:51)
[2019-10-05] MEDS: CYANOCOBALAMIN 500 MCG TABLET (VITAMIN B-12) PO SCH (08:51)
[2019-10-05] MEDS: INSULIN ASPART 100 UNITS/ML 3 ML PEN SC SCH ×4 (08:53→21:13)
--- NOTE | 2019-10-05 11:26 | Orthopedic Progress Note ---
Date of Service October 05, 2019 Assessment & Plan (1) Neurogenic claudication due to lumbar spinal stenosis: This time we will continue physical therapy monitor his LAURA output anticipate discharge home tomorrow. Present on Admission?: Yes Subjective Back pain controlled left leg symptoms markedly improved. Physical Exam Physical Exam: Patient is ambulating halls is very comfortable. Results & Data Vital Signs (Past 12 Hours) Vital Signs Temp Pulse Pulse Resp BP Pulse Ox 10/05/19 07:29 36.9 C 71 16 134/56 L 94 10/05/19 00:00 36.8 C 60 18 118/54 L 95
[2019-10-05] MEDS: DOCUSATE SODIUM/SENNA 50/8.6MG TAB PO SCH (21:14)
[2019-10-05] MEDS: INSULIN GLARGINE SOLOSTAR 100 UNITS/ML 3 ML PEN SC SCH (21:14)
[2019-10-06] MEDS: POLYETHYLENE (MIRALAX) 17 GM PACK PO SCH ×2 (00:19→05:49)
[2019-10-06] MEDS: LEVOTHYROXINE SODIUM 112 MCG TABLET PO SCH (05:46)
[2019-10-06] MEDS: OXYCODONE HCL IR 5 MG TAB (IMMEDIATE RELEASE) PO PRN (07:32)
[2019-10-06] MEDS: CHOLECALCIFEROL 1,000 UNITS TAB PO SCH (08:32)
[2019-10-06] MEDS: CYANOCOBALAMIN 500 MCG TABLET (VITAMIN B-12) PO SCH (08:32)
[2019-10-06] MEDS: ASPIRIN 81 MG ECTAB PO SCH (08:32)
[2019-10-06] MEDS: INSULIN ASPART 100 UNITS/ML 3 ML PEN SC SCH (08:35)
--- NOTE | 2019-10-06 09:14 | Discharge Summary ---
Date of Service October 06, 2019 Admission HPI Per Admitting Provider This is a 83-year-old male presents with chronic persistent worsening left leg pain. After failing extensive course of nonoperative care is here for surgical intervention. Principal Diagnosis Lumbar spinal stenosis with neurogenic claudication Discharge Data Allergies Allergy/AdvReac Type Severity Reaction Status Date / Time No Known Drug Allergies Allergy Verified 10/01/19 08:46 Consultations 10/03/19 14:07 Consult Case Management - Discharge Planning Routine Consult Hospitalist Routine Procedures Performed Operation Date: 10/03/19 09:55 Actual Procedures p L4-L5 Decompression Fusion, L5-S1 Fusion, Spinal Cord Monitoring, Application of Bone Morphogenetic Protein and Allograft, Placement of Interbody L4-L5(Not Applicable) - Yash Wright DO s L5-S1 Hardware Removal(Not Applicable) - Yash Wright DO Ordered Studies 10/03/19 09:55 FL fluoroscopy <1hr Routine FL lumbar spine 2-3V Routine Hospital Course (1) Neurogenic claudication due to lumbar spinal stenosis: Patient went lumbar decompression fusion tolerated well second orthopedic for postoperative. Postop day 1 leg symptoms improved. He is ambulating without difficulty.. Progressed to postop day #2 on postop day 3 LAURA drain decreased probably pain well controlled excellent strength testing subsequently discharged home. Discharge orders instructions from the chart for further review. Total Time Total Time Spent Total Time Spent (In Minutes): 20 minutes Discharge Plan Discharge Items Patient Disposition: Home - Home Health Services Reason For Visit: LUMBAR SPINAL STENOSIS W/O NEUROGENIC CLAUDICATION Discharge Diagnosis: Lumbar spinal stenosis with neurogenic claudication Activity: As commented below Non-emergency contact: Primary Care Provider Call non-emergency contact if: you have any medication questions Follow-up/Referrals: Dez Jain MD [Primary Care Provider] - Diet: Regular Addtl Attending Provider Instructions: ACTIVITY RECOMMENDATIONS: SELF CARE INSTRUCTIONS AFTER THORACIC/LUMBAR FUSIONS 1. You may walk to your tolerance. It is good exercise for your legs and back. Expect some back and intermittent leg aches and pains. 2. You may perform "counter-top" level activities (make a sandwich, robyn with a project, etc.). 3. No bending or lifting of more than 10 pounds or back twisting of any nature (roll like a log when turning in bed). 4. You may ride in a car for 20-30 minutes at a time. No driving until after your first visit with your doctor. 5. Frequent changes of position and restricting sitting to 30 minutes at a time will help limit the amount of back spasms and stiffness you may experience. 6. You may discontinue the use of ambulatory aids (cane, crutches, etc.) once your strength and confidence allow. 7. You may metal ceiling builder the shower and let water strike your incision when you arrive home at least once daily. Do not take a tub bath, sit in a hot tub or go into a swimming pool until after your first recheck in the office. SPECIAL CARE INSTRUCTIONS: VERY IMPORTANT TO READ AND REVIEW A. Your surgical incision has been closed with a cosmetic suture under the skin that will dissolve in about 6 weeks. In 14 days, you can use a pair of clean scissors and cut the suture that is left outside of the skin at the ends of your incision. 1. The small skin tapes can be removed 7 days after surgery if they have not fallen off by that point. 2. You may keep the wound open to air as much as possible to promote healing after post-op day number 5 unless told otherwise by your doctor. 3. If you think the wound looks like it is becoming infected (redness or worsening drainage) and/or you are experiencing fever, chill or worsening back pain and muscle spasms, contact the office so that we may evaluate you as soon as possible. B. Complications are uncommon, but please contact us if you have any signs or symptoms of: 1. wound infection (fever higher than 102.5 degrees F, redness, separation of wound, drainage, or increasing pain from the incision) 2. blood clots in legs (pain, swelling, redness and warmth in legs) 3. urinary tract infection (fever higher than 102.5 degrees F, burning upon urination or increased frequency of urination) 4. nerve problems (inability to walk on your toes or heels, numbness, loss of bowel or bladder control) 5. any other symptoms that concern you C. Please call the office at if you have any concerns or questions about your operation or recovery. D. No smoking! Smoking drastically decreases the chance of a solid fusion. E. Do not take any anti-inflammatory medications (Indocin, Advil, Motrin, Aspirin, Naprosyn, etc.) as these may inhibit the chance of a solid fusion. Tylenol is okay to take for pain. MANAGING PAIN AFTER SPINAL SURGERY 1. Narcotic medication is intended for short-term use and will be provided for surgical pain. Surgical pain usually lasts for a period of 4-6 weeks. Narcotic medication includes Percocet, Vicodin, Darvocet, Tylenol #3 or Lortab. 2. Longer-term pain is more appropriately treated with non-narcotic medication such as Tylenol ES. 3. Muscle spasm is not appropriately treated with narcotics. Muscle relaxers such as Soma, Flexeril or Skelaxin can be used along with Tylenol ES. 4. Remember that we all live with some "aches and pains". This is not unusual or uncommon after an injury or as we get older. a. Back pain is expected and may include muscle spasms for 4 to 6 weeks after surgery. The pain should gradually improve. If the pain worsens for no apparent reason, please contact the office. b. Intermittent leg pain may also be experienced and should not be concerned about unless it worsens for no apparent reason. If so, please contact the office. 5. We will provide appropriate medication within the normal guidelines of their prescribed use. We will also be very cautious and aware of potential abuse and extended duration of patients' medication needs. a. Pain medications are for your comfort and to assist with sleep and rest so that the tissue can heal. They are not provided in order to return to normal activity and should not be used through the day. To do so or worsening pain at night can result from ongoing tissue damage and de velopment of tolerance to the prescribed medicine. 6. Please allow 2-3 days to process refills. Prescriptions will not be mailed but must be picked up at the office. FOLLOW UP VISIT: Keep your scheduled follow-up appointment. Any questions, please call the office at . Pending Studies at Discharge: No Stand-Alone Forms: My [employer]umas, Smoking Cessation Medications and DC Order Prescriptions: New tramadol 50 mg tablet 50 mg PO Q6H PRN (Reason: pain, moderate) Qty: 30 RF: 0 oxycodone 5 mg tablet 5 mg PO Q6H PRN (Reason: pain, severe) Qty: 30 RF: 0 Continued lisinopril 5 mg tablet 5 mg PO QAM Qty: 90 RF: 3 Combivent Respimat 20-100 mcg/actuation mist 1 puffs INH Q4H PRN (Reason: bronchospasm) Qty: 4 RF: 2 (DME) OneTouch Ultra Blue Test Strip strip See Rx Instructions .ROUTE .MEDSUPPLY Qty: 300 RF: 3 tramadol 50 mg tablet 50 mg PO Q8H PRN (Reason: pain) Qty: 20 RF: 1 (DME) lancets misc See Dose Instructions .ROUTE .MEDSUPPLY Qty: 300 RF: 0 (DME) blood sugar diagnostic strip See Dose Instructions .ROUTE .MEDSUPPLY Qty: 300 RF: 0 (DME) pen needle, diabetic 32 gauge x 1/4" needle See Dose Instructions .ROUTE .MEDSUPPLY Qty: 300 RF: 0 cyanocobalamin (vitamin B-12) [Vitamin B-12] 1,000 mcg Tablet 1,000 mcg PO QAM RF: 0 aspirin 81 mg Tablet,Delayed Release (Dr/Ec) 81 mg PO QAM RF: 0 levothyroxine 112 mcg tablet 112 mcg PO QAM RF: 0 Vitamin D3 4,000 unit Capsule 4,000 unit PO QAM RF: 0 Toujeo SoloStar U-300 Insulin 300 unit/mL (1.5 mL) insulin pen 1 dose subcut DIRECTED RF: 0 esomeprazole magnesium [Nexium] 40 mg Capsule,Delayed Release(Dr/Ec) 40 mg PO QAM RF: 0 Novolog Flexpen U-100 Insulin 100 unit/mL insulin pen 1 dose subcut DIRECTED RF: 0 Discharge Orders: Discharge Order (Routine); Ordered 10/06/19 Ordered By: Yash Wright Admission Data Admit Date/Time: 10/03/19 13:07 Attending Provider: Yash Wright Admit Provider: Yash Wright Primary Care Provider: Dez Jain Other Providers: Abebe Anand ; [employer]
== END 2019-10-06 12:05 | disposition home health service (06) | DRG 455 ==
LOC: ASU 08:25 → 3E 13:07

== ENCOUNTER 2021-01-11 19:19 | Inpatient (IN) ==
[2021-01-11 20:31] LABS: Basophils # (auto) 0.11 K/uL (0-0.2); Basophils % (auto) 2.2 %; Eosinophils # (auto) 0.13 K/uL (0-0.5); Eosinophils % (auto) 2.5 %; Hematocrit (blood only) 32.8 % (42-52); Lymphocytes # (auto) 1.71 K/uL (1.2-3.4); Lymphocytes % (auto) 33.5 %; Mean Corpuscular Hemoglobin 32.7 pg (25-34); Mean Corpuscular Hgb Conc 33.5 g/dL (32-36); Mean Corpuscular Volume 97.6 fL (80-100); Mean Platelet Volume 11.1 fL (7.4-10.4); Monocytes # (auto) 0.46 K/uL (0.11-0.59); Neutrophils % (auto) 52.8 %; Platelet Count 124 K/uL (130-400); RDW Coefficient of Variation 14.5 % (11.5-14.5); Red Blood Count 3.36 M/uL (4.7-6.1); White Blood Count 5.11 K/uL (4.8-10.8)
--- NOTE | 2021-01-11 20:33 | XRay Report ---
XR chest 1V portable HISTORY: Shortness of breath. COMPARISON: 11/30/2018. FINDINGS: No pneumothorax. No pleural effusions. The heart is normal in size. The right lung is clear . Stable left basilar linear densities favor subsegmental atelectasis or scarring. No new focal lung consolidations to suggest pneumonia. No evidence for pulmonary edema. IMPRESSION: No significant change compared to the prior study. No acute process. ACT 112: Negative or not required by law. Electronically signed by: Zay Mark M.D. 01/11/2021 8:32 PM
--- NOTE | 2021-01-11 20:46 | Emergency Department Note ---
Impression & Plan SOB (shortness of breath), Abnormal ECG, Tachycardia-bradycardia, Anemia ED Provider Note NAME: SHELTON MEYER AGE: 85 SEX: M : 1935 ARRIVES VIA: Walk-In INFORMANT: [Patient] ED PROVIDER(S): [Jose Barrett MD] CHIEF COMPLAINT: Shortness of breath HISTORY OF PRESENT ILLNESS: The patient is an 85-year-old male who feels he has been more short of breath for the last several weeks. Patient states that the episodes seem to come and go without warning. They are not necessarily exertional. They were lasting 15 to 20 seconds but now sometimes last 15 or so minutes. He has not had cough or fever. He has been vaccinated for COVID-19. There has been no chest pain. No palpitations. No vomiting, no black or bloody stool. The patient does have some COPD, he denies any heart disease. REVIEW OF SYSTEMS: See HPI for pertinent positives and negatives. A total of ten systems were reviewed and were otherwise negative. PMHx/PSHx: See Below SOCIAL HISTORY: See Below. PHYSICAL EXAM: GENERAL: Patient is in no acute distress. HEENT: No acute trauma, normocephalic atraumatic, mucous membranes moist, no nasal congestion, no scleral icterus. NECK: No stridor, no adenopathy, no meningismus, trachea is midline. LUNGS: Clear to auscultation bilaterally, no wheeze, no rhonchi, breath sounds equal. HEART: Irregular rhythm, no obvious murmur, normal rate. ABDOMEN: Soft, nontender, bowel sounds positive, no hernias, no peritonitis. EXTREMITIES: No cyanosis or edema, full range of motion of all the joints without pain or difficulty, no signs for acute trauma. NEUROLOGIC: Oriented x 3, no acute motor or sensory deficits, no focal weakness. SKIN: No rash, no jaundice, no diaphoresis. DIFFERENTIAL DIAGNOSIS: Reactive airway disease, pneumonia, pneumothorax, COPD, CHF, infection, cardiac ischemia, dysrhythmia, sick sinus syndrome, pulmonary embolism, bronchitis, musculoskeletal, gastrointestinal, as well as other pathologies. EMERGENCY DEPARTMENT COURSE/PROCEDURES: ECG: Indication was shortness of breath. The ECG appears to show some intermittent atrial flutter. Towards the end of the ECG, sinus beats are seen. There are PVCs. The rate is 97. There is diffuse nonspecific ST change, no ST elevation. The QTc is 441. Compared to an ECG from 30 November 2018, there are less PVCs. An obvious sinus rhythm was present on the previous EKG. Continuous Cardiac Monitoring: An order was placed for continuous cardiac monitoring. The monitor shows a rate of 66 with sinus rhythm with PVCs. MEDICAL DECISION MAKING: There is no leukocytosis. The patient is anemic but this appears baseline looking back at previous testing. Platelet count slightly low. There was no coagulopathy. Creatinine was mildly elevated but at his baseline. No worrisome electrolyte abnormality in need of correction. No liver enzyme elevation. The patient appeared to be in a euthyroid state. ECG shows what appears to be bouts of atrial flutter as well as some PVCs and some areas of sinus rhythm. No evidence for acute ischemia. Cardiac enzyme testing x1 was not consistent with acute cardiac injury. Chest film not show pneumonia or CHF. During my evaluation, the patient had an episode of bradycardia to where his heart rate was in the 40s, it appeared sinus on the monitor. Patient felt short of breath at this time. As his his heart rate picked up, he felt improved. Patient also admits that he felt short of breath when the above noted ECG was being performed. The patient appears to be having episodes of bradycardia as well as some tachy cardia. I did speak with cardiology. Hospitalization is warranted. The patient may in fact need a pacemaker. This can be determined during his hospital stay. Cardiology is being consulted. I did speak with the patient and his family, case management has been involved. The on-call hospitalist was consulted. Of note, Covid and influenza testing were negative. Past Med/Surg History Medical History 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) Colon polyps Diabetes mellitus, type 2 IDDM Diabetic peripheral neuropathy GERD (gastroesophageal reflux disease) controlled Hearing deficit BL H/A History of basal cell carcinoma History of BPH History of colon cancer s/p colon resection + chemo History of pneumonia History of SCC (squamous cell carcinoma) of skin Hypertension Hypothyroidism Interstitial lung disease Male erectile disorder of organic origin Osteoarthritis Post laminectomy syndrome Pulmonary emphysema stable Pulmonary nodules Spinal stenosis Surgical History History of back surgery History of basal cell carcinoma (BCC) excision History of colon resection History of colonoscopy History of esophagogastroduodenoscopy (EGD) History of hernia repair X 5 History of lumbar laminectomy for spinal cord decompression History of nasal septoplasty bilateral inferior turbinate reduction-03/29/18 History of nasal surgery History of phacoemulsification of cataract of left eye with intraocular lens implantation History of squamous cell carcinoma excision History of tooth extraction Family History Unknown Heart disease No family history of bleeding disorder Brother Hemochromatosis Social History Smoking Status: Former smoker Tobacco Type: Cigarettes Age Started Using Tobacco: 16; Age Quit Using Tobacco: 38; packs per day: 1; Years Smoked: 22; Cigarettes Per Day: 20; Number of Years Since Quit: 46; Second Hand Exposure: No; Hx Alcohol Use: No Hx Substance Use: No Preferred Language: Norwegian Communication Ability: Effective Visual Impairment: Diminished Hearing Ability: Use of Hearing Aid Drum Drier Required: No Beliefs That Will Affect Care: None marital status: Current Living Situation: Spouse current occupational status: retired Feels Safe at Home: Yes Childhood Exposure to Second-Hand Smoke: No caffeine: Yes Dental Care, Regularly: Yes Physical Activity Frequency: Does not Exercise Seatbelt Use: always Sunscreen Use: Yes Assistive Devices: Glasses, Hearing Aid - Left, Hearing Aid - Right and Walker Allergies Allergies Allergy/AdvReac Type Severity Reaction Status Date / Time No Known Allergies Allergy Verified 01/11/21 21:22 Home Meds Home Medications Medication Instructions Recorded Confirmed aspirin 81 mg PO QAM 11/30/18 01/11/21 cyanocobalamin (vitamin B-12) 1,000 mcg PO QAM 11/30/18 01/11/21 [Vitamin B-12] esomeprazole magnesium [Nexium] 40 mg PO QAM 11/30/18 01/11/21 flash glucose sensor ea 04/20/20 11/09/20 cholecalciferol (vitamin D3) 25 mcg PO QAM 01/11/21 01/11/21 [Vitamin D3] insulin aspart U-100 [Novolog 0 units SUBCUT DAILY 01/11/21 01/11/21 Flexpen U-100 Insulin] levothyroxine 112 mcg PO DAILYBB 01/11/21 01/11/21 Previous Rx's Medication Instructions Recorded ipratropium 20 mcg-albuterol 100 1 puffs INH Q4H PRN #4 gm 09/08/19 mcg/actuation mist for inhalation Catarina Aldridge U-300 Insulin 300 22 units SUBCUT DAILY #4.5 ml NS 12/10/19 unit/mL (1.5 mL) subcutaneous pen pen needle, diabetic 32 gauge x #400 ea 04/22/2009/27" lisinopril 5 mg tablet 5 mg PO QAM #90 tab 06/07/20 Results & Data (ED) Vital Signs Vital Signs - 24 hr 01/11/21 19:26 01/11/21 19:30 01/11/21 20:00 Temperature 36.6 C Temperature Source Temporal Artery Scan Pulse Rate 54 L 98 H Pulse Rate from SpO2 Sensor 69 Respiratory Rate 22 13 Respiratory Effort / Characteristics Non-Labored Spontaneous Respiratory Depth Normal Blood Pressure 141/82 H 115/58 L Blood Pressure Mean 101 77 Pulse Oximetry 95 100 Oxygen Delivery Method Room Air Room Air Room Air Sepsis Recent Fever Within 48 Hours No Sepsis New/Unexplained Change in Mental Status N/A Sepsis Action Taken by Nursing No Action Required 01/11/21 20:14 01/11/21 20:30 01/11/21 21:00 Temperature Temperature Source Pulse Rate 82 65 56 L Pulse Rate from SpO2 Sensor 57 L 52 L 56 L Respiratory Rate 26 H 14 21 Respiratory Effort / Characteristics Respiratory Depth Blood Pressure 121/80 125/70 139/73 Blood Pressure Mean 93 88 95 Pulse Oximetry 100 99 99 Oxygen Delivery Method Room Air Room Air Room Air Sepsis Recent Fever Within 48 Hours Sepsis New/Unexplained Change in Mental Status Sepsis Action Taken by Nursing 01/11/21 21:30 Temperature Temperature Source Pulse Rate 69 Pulse Rate from SpO2 Sensor 54 L Respiratory Rate 15 Respiratory Effort / Characteristics Respiratory Depth Blood Pressure 142/72 H Blood Pressure Mean 95 Pulse Oximetry 100 Oxygen Delivery Method Room Air Sepsis Recent Fever Within 48 Hours Sepsis New/Unexplained Change in Mental Status Sepsis Action Taken by Shelter Medications Current Medication List: was personally reviewed by me Laboratory Data Attestation: I reviewed the patient's lab results. Result diagrams: 01/11/21 20:05 01/11/21 20:05 Lab Results 01/11/21 01/11/21 01/11/21 Range/Units 20:05 20:05 20:05 WBC 5.11 (4.8-10.8) K/uL RBC 3.36 L (4.7-6.1) M/uL Hgb 11.0 L (14.0-18.0) g/dL Hct 32.8 L (42-52) % MCV 97.6 (80-100) fL MCH 32.7 (25-34) pg MCHC 33.5 (32-36) g/dL RDW Std Deviation 52.0 H (36.4-46.3) fL RDW Coeff of Tramaine 14.5 (11.5-14.5) % Plt Count 124 L (130-400) K/uL MPV 11.1 H (7.4-10.4) fL Immature Gran % (Auto) 0.0 % Neut % (Auto) 52.8 % Lymph % (Auto) 33.5 % Miner % (Auto) 9.0 % Eos % (Auto) 2.5 % Baso % (Auto) 2.2 % Neut # (Auto) 2.70 (1.4-6.5) K/uL Lymph # (Auto) 1.71 (1.2-3.4) K/uL Miner # (Auto) 0.46 (0.11-0.59) K/uL Eos # (Auto) 0.13 (0-0.5) K/uL Baso # (Auto) 0.11 (0-0.2) K/uL Immature Gran # (Auto) 0.00 (0.00-0.02) K/uL PT 10.9 (9.0-12.0) Seconds INR 1.1 (0.9-1.1) APTT 26.6 (21.0-31.0) Seconds PTT Ratio 1.0 Sodium 142 (136-145) mmol/L Potassium 4.1 (3.5-5.1) mmol/L Chloride 112 H (98-107) mmol/L Carbon Dioxide 24 (21-32) mmol/L Anion Gap 6.0 (3-11) BUN 22 H (7-18) mg/dl Creatinine 1.48 H (0.6-1.4) mg/dl Est Cr Clr Drug Dosing 43.2 ml/min Est GFR ( Amer) 48.6 Est GFR (Non-Af Amer) 41.9 BUN/Creatinine Ratio 15.1 (10-20) Glucose 130 H (70-99) mg/dl Calcium 8.8 (8.5-10.1) mg/dl Magnesium 2.0 (1.8-2.4) mg/dl Total Bilirubin 0.5 (0.2-1) mg/dl AST 15 (15-37) U/L ALT 24 (12-78) U/L Alkaline Phosphatase 70 (45-117) U/L Troponin I < 0.015 (0-0.045) ng/ml Total Protein 7.3 (6.4-8.2) gm/dl Albumin 3.7 (3.4-5.0) gm/dl Globulin 3.6 (2.5-4.0) gm/dl Albumin/Globulin Ratio 1.0 (0.9-2) TSH (0.300-4.500) uIu/ml COVID-19 Eval Order SARS-CoV-2 (PCR) (Negative) Influenza Type A (PCR) (Neg) Influenza Type B (PCR) (Neg) RSV (RT-PCR) (Neg) 01/11/21 01/11/21 01/11/21 Range/Units 20:05 20:51 20:51 WBC (4.8-10.8) K/uL RBC (4.7-6.1) M/uL Hgb (14.0-18.0) g/dL Hct (42-52) % MCV (80-100) fL MCH (25-34) pg MCHC (32-36) g/dL RDW Std Deviation (36.4-46.3) fL RDW Coeff of Tramaine (11.5-14.5) % Plt Count (130-400) K/uL MPV (7.4-10.4) fL Immature Gran % (Auto) % Neut % (Auto) % Lymph % (Auto) % Miner % (Auto) % Eos % (Auto) % Baso % (Auto) % Neut # (Auto) (1.4-6.5) K/uL Lymph # (Auto) (1.2-3.4) K/uL Miner # (Auto) (0.11-0.59) K/uL Eos # (Auto) (0-0.5) K/uL Baso # (Auto) (0-0.2) K/uL Immature Gran # (Auto) (0.00-0.02) K/uL PT (9.0-12.0) Seconds INR (0.9-1.1) APTT (21.0-31.0) Seconds PTT Ratio Sodium (136-145) mmol/L Potassium (3.5-5.1) mmol/L Chloride (98-107) mmol/L Carbon Dioxide (21-32) mmol/L Anion Gap (3-11) BUN (7-18) mg/dl Creatinine (0.6-1.4) mg/dl Est Cr Clr Drug Dosing ml/min Est GFR ( Amer) Est GFR (Non-Af Amer) BUN/Creatinine Ratio (10-20) Glucose (70-99) mg/dl Calcium (8.5-10.1) mg/dl Magnesium (1.8-2.4) mg/dl Total Bilirubin (0.2-1) mg/dl AST (15-37) U/L ALT (12-78) U/L Alkaline Phosphatase (45-117) U/L Troponin I (0-0.045) ng/ml Total Protein (6.4-8.2) gm/dl Albumin (3.4-5.0) gm/dl Globulin (2.5-4.0) gm/dl Albumin/Globulin Ratio (0.9-2) TSH 2.880 (0.300-4.500) uIu/ml COVID-19 Eval Order CovFluRsv at [facility] SARS-CoV-2 (PCR) NEGATIVE (Negative) Influenza Type A (PCR) Negative (Neg) Influenza Type B (PCR) Negative (Neg) RSV (RT-PCR) Negative (Neg) Imaging Data Radiologist's Impression: Chest X-Ray 01/11/21 20:06 XR chest 1V portable HISTORY: Shortness of breath. COMPARISON: 11/30/2018. FINDINGS: No pneumothorax. No pleural effusions. The heart is normal in size. The right lung is clear. Stable left basilar linear densities favor subsegmental atelectasis or scarring. No new focal lung consolidations to suggest pneumonia. No evidence for pulmonary edema. IMPRESSION: No significant change compared to the prior study. No acute process. ACT 112: Negative or not required by law. Electronically signed by: Zay Mark M.D. 01/11/2021 8:32 PM Discharge Plan Visit Data Chief Complaint: Shortness of Breath/Dyspnea Stated Complaint: shortness of breath ED Provider: Jose Barrett Discharge Problem: SOB (shortness of breath), Abnormal ECG, Tachycardia-bradycardia, Anemia Patient Disposition: Admitted As Inpatient Condition: Fair Forms Stand Alone Forms: [employer] Prescriptions Prescriptions: No Action Combivent Respimat 20-100 mcg/actuation mist 1 puffs INH Q4H PRN (Reason: bronchospasm) Qty: 4 RF: 2 Toujeo SoloStar U-300 Insulin 300 unit/mL (1.5 mL) insulin pen 22 units subcut DAILY Qty: 4.5 RF: 5 (DME) pen needle, diabetic 32 gauge x 1/4" needle See Rx Instructions .ROUTE .MEDSUPPLY Qty: 400 RF: 3 lisinopril 5 mg tablet 5 mg PO QAM Qty: 90 RF: 3 (DME) FreeStyle Kvng 14 Day Sensor Kit See Rx Instructions .ROUTE .MEDSUPPLY RF: 0 cyanocobalamin (vitamin B-12) [Vitamin B-12] 1,000 mcg Tablet 1,000 mcg PO QAM RF: 0 aspirin 81 mg Tablet,Delayed Release (Dr/Ec) 81 mg PO QAM RF: 0 esomeprazole magnesium [Nexium] 40 mg Capsule,Delayed Release(Dr/Ec) 40 mg PO QAM RF: 0 cholecalciferol (vitamin D3) [Vitamin D3] 25 mcg (1,000 unit) Capsule 25 mcg PO QAM RF: 0 levothyroxine 112 mcg tablet 112 mcg PO DAILYBB RF: 0 insulin aspart U-100 [Novolog Flexpen U-100 Insulin] 100 unit/mL (3 mL) insulin pen 0 units subcut DAILY RF: 0 Referrals Referrals: Dez Jain MD [Primary Care Provider] - Discharge Problem: Anemia Qualifiers: Anemia type: unspecified type Qualified Code(s): D64.9 - Anemia, unspecified
[2021-01-11 20:47] LABS: INR 1.1 (0.9-1.1); Partial Thromboplastin Time 26.6 Seconds (21.0-31.0); Prothrombin Time 10.9 Seconds (9.0-12.0)
[2021-01-11 20:49] LABS: Alanine Aminotransferase 24 U/L (12-78); Albumin Level 3.7 gm/dl (3.4-5.0); Aspartate Aminotransferase 15 U/L (15-37); BUN Creatinine Ratio 15.1 (10-20); Blood Urea Nitrogen 22 mg/dl (7-18); Calcium 8.8 mg/dl (8.5-10.1); Carbon Dioxide 24 mmol/L (21-32); Chloride 112 mmol/L (98-107); Creatinine Clr Calc Pharmacy 43.2 ml/min; Est GFR (African American) 48.6; Est GFR (Non-African American) 41.9; Glucose 130 mg/dl (70-99); Potassium 4.1 mmol/L (3.5-5.1); Sodium 142 mmol/L (136-145)
[2021-01-11 20:54] LABS: Alkaline Phosphatase 70 U/L (45-117); Bilirubin,Total 0.5 mg/dl (0.2-1); Globulin 3.6 gm/dl (2.5-4.0); Total Protein 7.3 gm/dl (6.4-8.2); Troponin I < 0.015 ng/ml (0-0.045)
[2021-01-11 21:55] LABS: Influenza A virus by PCR Negative (Neg); Influenza B virus by PCR Negative (Neg); RSV by PCR Negative (Neg); SARS CoV2 RNA(COVID-19) InHosp NEGATIVE (Negative)
--- NOTE | 2021-01-11 23:27 | History & Physical Report ---
Date of Service January 11, 2021 Assessment & Plan (1) SOB (shortness of breath): (2) Tachycardia-bradycardia: (3) Hypothyroidism: (4) Controlled type 2 diabetes mellitus with diabetic neuropathy, with long-term current use of insulin: Admission and Anticipated Discharge Date Admission Date: 85 yo M w/ pMHx. of DM, lung disease and hypothyroidism presents with intermittent progressive shortness of breath and found to have arrhythmia that may be causing his symptoms vs. progressive emphysema Arrhythmia EKG with narrow complex irregularly irregular rhythm with frequent PVC's and possible AV dissociation [id number] of 3 for age, and DM (moderate-high risk) K 4.1, Mg 2, Trop < 0.015, TSH nl @ 2.88 CXR: no acute process - consulted cardiology - ECHO - pacer pads placed - continue to monitor for hypotension, AMS, confusion, pulm. 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 nodules since 2016 PFT's with mild obstructive pattern --> nl. FVC & FEV1 & decreased FEV1/FVC ratio @ 65% - continue home ipratropium albuterol Q4PRN - continue to monitor - may require further outpatient w/u to evaluate for progressive lung disease DM type II - SSI - 8U long acting BID - continue to monitor Hypothyroidism - continue home Levothyroxine HTN - continue home Lisinopril CKD III appears stable at b/l of 1.5 - continue to monitor Code: full Diet: NPO, D5 1/2NS X 2 bags DVT prophylaxis: held chemical due to potential for procedure; SCD's History of Present Illness Chief Complaint: shortness of breath Primary Care Provider: Dez Jain MD Jerardo Cline is here for progressively worsening episodes of shortness of breath. He has noticed over the last couple of weeks that he has been having more episodes of shortness of breath. The episodes can last from a minute to a couple hours. There seems to be no correlation between activity and commonly the shortness of breath will occur while sitting down. He uses an inhaler intermittently, most recently 4-5 days ago and this does not appear to improve his symptoms. He follows with Dr. Frias. for shortness of breath and was found to have emphysema and obstructive pattern on PFT's. He was noted to have PVC's and extrasystolic beats in April of last year. [place] Hx.: worked in [employer] and [employer] prior tobacco use: 21 pack year history ETOH: not sig. Substance use: none Allergies Allergy/AdvReac Type Severity Reaction Status Date / Time No Known Allergies Allergy Verified 01/11/21 21:22 Home Medications Medication Instructions Recorded Confirmed Type aspirin 81 mg PO QAM 11/30/18 01/11/21 History cyanocobalamin (vitamin B-12) 1,000 mcg PO QAM 11/30/18 01/11/21 History [Vitamin B-12] esomeprazole magnesium [Nexium] 40 mg PO QAM 11/30/18 01/11/21 History ipratropium 20 mcg-albuterol 100 1 puffs INH Q4H PRN #4 gm 09/08/19 01/11/21 Rx mcg/actuation mist for inhalation Toujeo SoloStar U-300 Insulin 300 22 units SUBCUT DAILY #4.5 ml NS 12/10/19 01/11/21 Rx unit/mL (1.5 mL) subcutaneous pen flash glucose sensor ea 04/20/20 11/09/20 History pen needle, diabetic 32 gauge x #400 ea 04/22/20 11/09/20 Rx 1/4" lisinopril 5 mg tablet 5 mg PO QAM #90 tab 06/07/20 01/11/21 Rx cholecalciferol (vitamin D3) 25 mcg PO QAM 01/11/21 01/11/21 History [Vitamin D3] insulin aspart U-100 [Novolog 0 units SUBCUT DAILY 01/11/21 01/11/21 History Flexpen U-100 Insulin] levothyroxine 112 mcg PO DAILYBB 01/11/21 01/11/21 History Past Med/Surg History Medical History 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) Colon polyps Diabetes mellitus, type 2 IDDM Diabetic peripheral neuropathy GERD (gastroesophageal reflux disease) controlled Hearing deficit BL H/A History of basal cell carcinoma History of BPH History of colon cancer s/p colon resection + chemo History of pneumonia History of SCC (squamous cell carcinoma) of skin Hypertension Hypothyroidism Interstitial lung disease Male erectile disorder of organic origin Osteoarthritis Post laminectomy syndrome Pulmonary emphysema stable Pulmonary nodules Spinal stenosis Surgical History History of back surgery History of basal cell carcinoma (BCC) excision History of colon resection History of colonoscopy History of esophagogastroduodenoscopy (EGD) History of hernia repair X 5 History of lumbar laminectomy for spinal cord decompression History of nasal septoplasty bilateral inferior turbinate reduction-03/29/18 History of nasal surgery History of phacoemulsification of cataract of left eye with intraocular lens implantation History of squamous cell carcinoma excision History of tooth extraction Family History Unknown Heart disease No family history of bleeding disorder Brother Hemochromatosis Social History Smoking Status: Never smoker Tobacco Type: Cigarettes Age Started Using Tobacco: 16; Age Quit Using Tobacco: 38; packs per day: 1; Years Smoked: 22; Cigarettes Per Day: 20; Number of Years Since Quit: 46; Second Hand Exposure: No; Hx Alcohol Use: No Hx Substance Use: No Preferred Language: Korean Communication Ability: Effective Visual Impairment: Diminished Hearing Ability: Use of Hearing Aid Hand Cultivator Required: No Beliefs That Will Affect Care: None marital status: Current Living Situation: Spouse current occupational status: retired Other Information That Helps Us Care for You: No Feels Safe at Home: Yes Childhood Exposure to Second-Hand Smoke: No caffeine: Yes Dental Care, Regularly: Yes Physical Activity Frequency: Does not Exercise Seatbelt Use: always Sunscreen Use: Yes Assistive Devices: Denture - Upper, Denture - Lower, Glasses and Hearing Aid - Bilateral Assistive Devices Comment: hearing aids at home Review of Systems Review of Systems: Constitutional: denies fevers, chills, nausea, vomiting, diaphoresis, night sweats; admits wt. loss of 30 lbs over the last 60 days (relates to decreased appetite) Head: denies trauma, LOC, headaches, confusion, lightheadedness, vision changes Neuro: denies syncope, pre-syncope, slurring of speech, focal weakness ENT: denies rhinorrhea, stuffiness, sore throat Cardiac: denies chest pain, palpitations, PND, BANUELOS, admits leg edema Pulm.: denies cough, hemoptysis, sputum production, admits shortness of breath GI: denies constipation, diarrhea, abdominal pain Physical Exam Constitutional: WD/WN, vitals as above Eyes: PERRL, conjunctivae normal, anicteric sclerae - arcus senilis ENMT: external ear and nose normal, oropharynx normal Neck: normal visual inspection Respiratory: normal respiratory effort, lungs clear to auscultation Cardiovascular: Vessels: + carotid bruit - regular rate with a dropped beat while listening - no clear murmur appreciated - 1-2+ pitting edema in the lower extremity to the mid lower extremity Gastrointestinal (Abdomen): normal bowel sounds, soft, nontender, no hepatosplenomegaly Skin: no rashes, warm and dry Neurologic: no focal motor deficits Psychiatric: Orientation: alert and oriented x 3 Apperance: appropriately dressed Eye Contact: good eye contact Speech: normal rate/rhythm/volume of speech; no pressured speech Affect: euthymic affect Thought Process: goal directed thought process Results & Data Results & Data ([facility]) Vital Signs (Past 12 Hours) Vital Signs Temp Pulse Resp BP Pulse Ox 01/11/21 22:30 55 L 12 124/68 100 01/11/21 22:00 62 16 135/61 99 01/11/21 21:30 69 15 142/72 H 100 01/11/21 21:00 56 L 21 139/73 99 01/11/21 20:30 65 14 125/70 99 01/11/21 20:14 82 26 H 121/80 100 01/11/21 20:00 98 H 13 115/58 L 100 01/11/21 19:26 36.6 C 54 L 22 141/82 H 95 CBC Results Results Complete Blood Count Results: RBC 3.36 M/uL (4.7-6.1) L 01/11/21 WBC 5.11 K/uL (4.8-10.8) 01/11/21 Hgb 11.0 g/dL (14.0-18.0) L 01/11/21 Hct 32.8 % (42-52) L 01/11/21 Plt Count 124 K/uL (130-400) L 01/11/21 Chemistry (BMP) Results BMP Results: Sodium 142 mmol/L (136-145) 01/11/21 Potassium 4.1 mmol/L (3.5-5.1) 01/11/21 Chloride 112 mmol/L (98-107) H 01/11/21 BUN 22 mg/dl (7-18) H 01/11/21 Creatinine 1.48 mg/dl (0.6-1.4) H 01/11/21 Glucose 130 mg/dl (70-99) H 01/11/21 Code Status & VTE Plan VTE Prophylaxis Plan VTE Prophylaxis will be ordered: Yes Supervising Physician Co-Signing Physician Notes Jerardo Cline is an 85yo male presenting with intermittent episodes of dyspnea - ongoing for the last several weeks. Patient with arrhythmia noted on monitor On exam he is afebrile, HD stable Gen - nontoxic, oriented x 4 Skin - no rash HEENT - NC/AT, PERRL Hear t- +S1/S2, regular with frequent PVCs Lungs - CTA Abd - +BS, soft, NT/ND Ext - no edema labs and images reviewed Assessment/Plan - 85yo c male with episodic dyspnea, arrhythmia noted on monitor and EKG - narrow complex with ectopy, PVCs, episodes of bradycardia -Monitor, pacer pads in place -Check 2D echo -Cardiology consultation appreciated -Will keep NPO for possible pacer placement Resident Activity Tracking Resident Involvement: Resident Care Provided Care Provided: Adult Hospital Medicine
[2021-01-12] MEDS ORDERED: GLUCOSE 10 TABS/TUBE PO PRN (02:25)
[2021-01-12] MEDS ORDERED: GLUCAGON FOR INJ 1 MG VIAL SQ PRN (02:25)
[2021-01-12] MEDS ORDERED: CARBOHYDRATES FOR HYPOGLYCEMIA PO PRN (02:25)
[2021-01-12] MEDS ORDERED: POLYETHYLENE (MIRALAX) 17 GM PACK PO PRN (02:25)
[2021-01-12] MEDS ORDERED: DEXTROSE 50% 50 ML SYRINGE IV PRN (02:25)
[2021-01-12] MEDS ORDERED: ACETAMINOPHEN 325 MG TAB PO PRN (02:25)
[2021-01-12] MEDS ORDERED: IPRATROPIUM BROMIDE/ALBUTEROL respimat INH INH PRN (02:25)
[2021-01-12] MEDS ORDERED: GLUCOSE 40% GEL 15 GM TUBE PO PRN (02:25)
[2021-01-12] MEDS ORDERED: Ipratropium HFA Inhaler (Combivent Respimat P&T Subs) INH PRN (02:40)
[2021-01-12] MEDS ORDERED: Albuterol HFA 8 GM Inhaler (Combivent Respimat P&T Subs) INH PRN (02:40)
--- NOTE | 2021-01-12 02:40 | Billing Data ---
Date of Service January 11, 2021 Coding Level of Care Code 93642 Initial Inpt Care Lvl 3
[2021-01-12] MEDS: D5W AND 1/2NSS 1,000 ML IV SCH ×2 (03:22→17:21)
[2021-01-12 05:41] LABS: Basophils # (auto) 0.11 K/uL (0-0.2); Basophils % (auto) 2.6 %; Eosinophils # (auto) 0.17 K/uL (0-0.5); Hematocrit (blood only) 33.6 % (42-52); Hemoglobin 11.3 g/dL (14.0-18.0); Lymphocytes # (auto) 1.34 K/uL (1.2-3.4); Lymphocytes % (auto) 31.7 %; Mean Corpuscular Hemoglobin 32.7 pg (25-34); Mean Corpuscular Hgb Conc 33.6 g/dL (32-36); Mean Corpuscular Volume 97.1 fL (80-100); Mean Platelet Volume 11.2 fL (7.4-10.4); Monocytes # (auto) 0.45 K/uL (0.11-0.59); Monocytes % (auto) 10.6 %; Neutrophils # (auto) 2.16 K/uL (1.4-6.5); Neutrophils % (auto) 51.1 %; Platelet Count 113 K/uL (130-400); RDW Coefficient of Variation 14.7 % (11.5-14.5); Red Blood Count 3.46 M/uL (4.7-6.1); White Blood Count 4.23 K/uL (4.8-10.8)
[2021-01-12 06:02] LABS: BUN Creatinine Ratio 14.1 (10-20); Calcium 8.9 mg/dl (8.5-10.1); Creatinine Clr Calc Pharmacy 49.1 ml/min; Est GFR (African American) 56.9; Est GFR (Non-African American) 49.1; Phosphorus 2.8 mg/dl (2.5-4.9); Potassium 4.2 mmol/L (3.5-5.1)
[2021-01-12 06:03] LABS: Giant Platelets 2+
[2021-01-12] MEDS: LEVOTHYROXINE SODIUM 112 MCG TABLET PO SCH (06:10)
[2021-01-12] MEDS: INSULIN ASPART 100 UNITS/ML 3 ML PEN SC SCH ×4 (06:13→21:25)
[2021-01-12 06:30] LABS: Lyme Ab IgM w/WB Rflx Negative (Negative)
[2021-01-12 06:49] LABS: Lyme Ab IgG w/WB Rflx Positive (Negative)
[2021-01-12] MEDS: lisinopril 5 MG TAB PO SCH (08:29)
[2021-01-12] MEDS: PANTOprazole 40 MG TAB PO SCH (08:29)
[2021-01-12] MEDS: INSULIN GLARGINE SOLOSTAR 100 UNITS/ML 3 ML PEN SC SCH ×2 (08:30→21:25)
--- NOTE | 2021-01-12 08:56 | XCELERA ---
[id number]
--- NOTE | 2021-01-12 09:30 | Hospitalist Progress Note ---
Date of Service January 12, 2021 Assessment & Plan (1) SOB (shortness of breath): 85 yo M with hx IDDM, CKD3, hypothyroidism, hx colon cancer, pulmonary nodules, pulmonary emphysema, HTN, anemia. SOB, likely cardiac etiology - 21 pack year hx, without response on inhaler therapies d/c from pulm clinic - no fever, CXR changes, - abnormal EKG, hx tachybrady, possibly related to arrhythmia - cardiology consulted for recommendations - scheduled for pacemaker today - will attempt medical control of tachycardia after pacer placement Emphysema - cont ipratropium/alb inhaler PRN IDDM2 - lantus 8u BID - SSI aspart with meals GERD - pantoprazole 40 mg maru Hypothyroidism - levothyroxine 112 mcg HTN - lisinopril 5 mg daily DVT ppx: low risk, ambulate ad darryl FEN/GI: PPI, DM2 diet Code Status: Full Code Dispo: Med/Surg with Tele (2) Tachycardia-bradycardia: (3) Abnormal ECG: (4) Controlled type 2 diabetes mellitus with diabetic neuropathy, with long-term current use of insulin: (5) CKD (chronic kidney disease), stage III: (6) Hypothyroidism: (7) Hypertension: Admission and Anticipated Discharge Date Admission Date: January 12, 2021 Supervising Physician Co-Signing Physician Notes Attending attestation Pt seen and examined in concert with Dr. Joaquin. In agreement with the documented findings as noted in the resident documentation with any exceptions or additions as noted here. 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 On examination, S1/S2 nl RRR no MCG. CTAB. Abd NT/ND BS+ve Intermittent shortness of breath with atial ectopy - cardiology consultation - pacemaker placement today. continue PRN albuterol h/o emphysema without acute exacerrbation - continue home regimen, monitor for changes Insulin-dependent DMII - continue basal/bolus Else see resident documentation as noted. Subjective CC: SOB that comes and goes. No pattern to symptoms. No SOB with exertion, CP. No dizziness, lightheadedness. symptoms not improved with inhaler use. Review of Systems Review of Systems: All systems reviewed & are unremarkable except as noted in Subjective Physical Exam Physical Exam: Constitutional: elderly male, in no apparent distress, sitting comfortably in bed. Eyes: EOMI, pupils equal and reactive bilaterally, no scleral icterus Cardiac: irregular heart rate, fluctuating tachycardia and regular rate, no murmurs, gallops or rubs. Normal S1, S2 Pulm: CTA BL, no wheezes, rhonchi, crackles or rubs, moving air well throughout both lungs Abd: soft, nontender, nondistended, normal bowel sounds, no rebound or guarding Extremities: 2+ peripheral pulses, no edema Neuro: no focal deficits, moving all 4 limbs, A&Ox3 Results & Data Results & Data ([facility]) Vital Signs (Past 12 Hours) Vital Signs Temp Pulse Pulse Resp BP BP Pulse Ox 01/12/21 08:39 94 H 01/12/21 07:57 36.7 C 46 L 18 125/64 95 01/12/21 07:24 61 01/12/21 04:10 84 01/12/21 02:26 36.6 C 63 16 156/89 H 96 01/12/21 01:30 54 L 12 123/75 95 01/12/21 01:27 58 L 15 122/61 98 01/12/21 00:45 57 L 17 125/65 97 01/12/21 00:30 62 18 125/65 93 01/12/21 00:00 61 20 135/68 100 01/11/21 23:30 55 L 18 129/79 98 01/11/21 23:00 61 19 127/67 96 01/11/21 22:30 55 L 12 124/68 100 01/11/21 22:00 62 16 135/61 99 01/11/21 21:30 69 15 142/72 H 100 Laboratory Results WBC 4.23 K/uL (4.8-10.8) L 01/12/21 05:24 RBC 3.46 M/uL (4.7-6.1) L 01/12/21 05:24 Hgb 11.3 g/dL (14.0-18.0) L 01/12/21 05:24 Hct 33.6 % (42-52) L 01/12/21 05:24 MCV 97.1 fL (80-100) 01/12/21 05:24 MCH 32.7 pg (25-34) 01/12/21 05:24 MCHC 33.6 g/dL (32-36) 01/12/21 05:24 RDW Std Deviation 52.0 fL (36.4-46.3) H 01/12/21 05:24 RDW Coeff of Tramaine 14.7 % (11.5-14.5) H 01/12/21 05:24 Plt Count 113 K/uL (130-400) L 01/12/21 05:24 MPV 11.2 fL (7.4-10.4) H 01/12/21 05:24 Immature Gran % (Auto) 0.0 % 01/12/21 05:24 Neut % (Auto) 51.1 % 01/12/21 05:24 Lymph % (Auto) 31.7 % 01/12/21 05:24 [place] % (Auto) 10.6 % 01/12/21 05:24 Eos % (Auto) 4.0 % 01/12/21 05:24 Baso % (Auto) 2.6 % 01/12/21 05:24 Neut # (Auto) 2.16 K/uL (1.4-6.5) 01/12/21 05:24 Lymph # (Auto) 1.34 K/uL (1.2-3.4) 01/12/21 05:24 [place] # (Auto) 0.45 K/uL (0.11-0.59) 01/12/21 05:24 Eos # (Auto) 0.17 K/uL (0-0.5) 01/12/21 05:24 Baso # (Auto) 0.11 K/uL (0-0.2) 01/12/21 05:24 Immature Gran # (Auto) 0.00 K/uL (0.00-0.02) 01/12/21 05:24 Giant Platelets 2+ 01/12/21 05:24 PT 10.9 Seconds (9.0-12.0) 01/11/21 20:05 INR 1.1 (0.9-1.1) 01/11/21 20:05 APTT 26.6 Seconds (21.0-31.0) 01/11/21 20:05 PTT Ratio 1.0 01/11/21 20:05 Sodium 142 mmol/L (136-145) 01/12/21 05:24 Potassium 4.2 mmol/L (3.5-5.1) 01/12/21 05:24 Chloride 113 mmol/L (98-107) H 01/12/21 05:24 Carbon Dioxide 25 mmol/L (21-32) 01/12/21 05:24 Anion Gap 4.0 (3-11) 01/12/21 05:24 BUN 18 mg/dl (7-18) 01/12/21 05:24 Creatinine 1.30 mg/dl (0.6-1.4) 01/12/21 05:24 Est Cr Clr Drug Dosing 49.1 ml/min 01/12/21 05:24 Est GFR ( Amer) 56.9 01/12/21 05:24 Est GFR (Non-Af Amer) 49.1 01/12/21 05:24 BUN/Creatinine Ratio 14.1 (10-20) 01/12/21 05:24 Glucose 177 mg/dl (70-99) H 01/12/21 05:24 POC Glucose 178 mg/dl (70-99) H 01/12/21 06:12 Calcium 8.9 mg/dl (8.5-10.1) 01/12/21 05:24 Phosphorus 2.8 mg/dl (2.5-4.9) 01/12/21 05:24 Magnesium 2.0 mg/dl (1.8-2.4) 01/11/21 20:05 Total Bilirubin 0.5 mg/dl (0.2-1) 01/11/21 20:05 AST 15 U/L (15-37) 01/11/21 20:05 ALT 24 U/L (12-78) 01/11/21 20:05 Alkaline Phosphatase 70 U/L (45-117) 01/11/21 20:05 Troponin I < 0.015 ng/ml (0-0.045) 01/11/21 20:05 Total Protein 7.3 gm/dl (6.4-8.2) 01/11/21 20:05 Albumin 3.7 gm/dl (3.4-5.0) 01/11/21 20:05 Globulin 3.6 gm/dl (2.5-4.0) 01/11/21 20:05 Albumin/Globulin Ratio 1.0 (0.9-2) 01/11/21 20:05 TSH 2.880 uIu/ml (0.300-4.500) 01/11/21 20:05 Lyme Disease IgG Ab Positive (Negative) A 01/12/21 05:24 Lyme Disease IgM Ab Negative (Negative) 01/12/21 05:24 COVID-19 Eval Order CovFluRsv at [facility] 01/11/21 20:51 SARS-CoV-2 (PCR) NEGATIVE (Negative) 01/11/21 20:51 Influenza Type A (PCR) Negative (Neg) 01/11/21 20:51 Influenza Type B (PCR) Negative (Neg) 01/11/21 20:51 RSV (RT-PCR) Negative (Neg) 01/11/21 20:51 Impressions Chest X-Ray 01/11/21 20:06 XR chest 1V portable HISTORY: Shortness of breath. COMPARISON: 11/30/2018. FINDINGS: No pneumothorax. No pleural effusions. The heart is normal in size. The right lung is clear. Stable left basilar linear densities favor subsegmental atelectasis or scarring. No new focal lung consolidations to suggest pneumonia. No evidence for pulmonary edema. IMPRESSION: No significant change compared to the prior study. No acute process. ACT 112: Negative or not required by law. Electronically signed by: Zay Mark M.D. 01/11/2021 8:32 PM Resident Activity Tracking Resident Involvement: Resident Care Provided Care Provided: Adult Hospital Medicine
[2021-01-12] MEDS ORDERED: ALBUT/IPRATROP 3MG/0.5MG NEB 3 ML VIAL NEB ONE (09:45)
--- NOTE | 2021-01-12 09:51 | Pre Anesthesia Assessment ---
Date of Service January 12, 2021 Pre Sedation Assessment Vital Signs Temp Pulse Pulse Resp BP BP Pulse Ox 01/12/21 08:39 94 H 01/12/21 07:57 36.7 C 46 L 18 125/64 95 01/12/21 07:24 61 01/12/21 04:10 84 01/12/21 02:26 36.6 C 63 16 156/89 H 96 01/12/21 01:30 54 L 12 123/75 95 01/12/21 01:27 58 L 15 122/61 98 01/12/21 00:45 57 L 17 125/65 97 01/12/21 00:30 62 18 125/65 93 01/12/21 00:00 61 20 135/68 100 01/11/21 23:30 55 L 18 129/79 98 01/11/21 23:00 61 19 127/67 96 01/11/21 22:30 55 L 12 124/68 100 01/11/21 22:00 62 16 135/61 99 01/11/21 21:30 69 15 142/72 H 100 01/11/21 21:00 56 L 21 139/73 99 01/11/21 20:30 65 14 125/70 99 01/11/21 20:14 82 26 H 121/80 100 01/11/21 20:00 98 H 13 115/58 L 100 01/11/21 19:26 36.6 C 54 L 22 141/82 H 95 Cardiovascular + bradycardic and + irregularly irregular Respiratory + respiratory effort normal Pre-Sedation Airway Assessment Smoking Status: Never smoker Hx Sleep Apnea: No Hx Difficult Intubation: No Short, Thick Neck: No Thyromental Distance: > or= 3.5 Finger Breadths Oral Cavity: + WNL Mallampati Class: III ASA: ASA2 Procedure Planning Contraindications for Sedation: none Current Medications Reviewed: Yes Notes The planned sedation has been discussed with the patient. Informed Consent was obtained. I have identified the patient, determined the appropriateness of sedation and have assessed the patient immediately prior to the procedure. All medicine(s) and interventions are by my order.
--- NOTE | 2021-01-12 10:03 | Cardiology Consultation ---
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 He does not have documented atrial fibrillation. He does have frequent and consecutive atrial ectopy which is often times the precipitant of atrial fibrillation. The past he has appear to have had ventricular ectopy and atrial ectopy as well. Curiously, he does not appear to be symptomatic with respect to palpitations or dizziness. I can not say with certainty that his symptoms are related to the rhythm abnormality. It did seem to have some dyspnea when bradycardic in the emergency room. I am not confident we would know the relationship until we treated this rhythm disturbance. Treating this arrhythmia is complicated by his relative bradycardia at rest. He has also possibly symptomatic with low heart rates. As such, aggressive rate control with either beta-blockade or antiarrhythmics would be better accomplished with a pacemaker as well. I did describe the risks benefits and alternatives to the patient including no treatment of the current arrhythmia or trying medications 1st. He is more in favor of a pacemaker now. We will plan on placing 1 later today. History of Present Illness Reason for Consultation: Tachy-gavin syndrome Requesting Physician: Tata Attending Physician: Alexis Vergara MD History of Present Illness The patient is an 85-year-old gentleman without a known history of cardiac disease who presented to the emergency room for symptoms of worsening dyspnea. His episodes of shortness of breath are fairly longstanding in nature. The patient states that he has been struggling with some form of breathing trouble for few years and has gone through a few pulmonologists. His symptoms have not improved over that time period and now he seems to have fairly frequent episodes of breathing difficulty. The episodes themselves are quite curious in that they are not generally not associated with exertion. The episodes seem to happen while he is at rest and are fairly paroxysmal in nature. He characterizes them as a need to take several deep breaths. He does not have associated dizziness or lightheadedness. There was no associated chest dis comfort. He has not been aware of any palpitations. Occasionally who uses pulse oximeter to check his oxygen during these episodes. Generally speaking and is normal. He does not recall any of heart rate readings and feels that his heart rate is generally in the 50s. Often times he will actually and to improve some of his symptoms. Does not report orthopnea or paroxysmal nocturnal dyspnea. He has some limitations with respect to activity due to back discomfort. Occasionally he will also have some leg pain which requires him to stopping crouch down for a brief period of time. Routine activity around the house and some light yd work does not produce symptoms. Again no exertional chest pain. Allergies Allergy/AdvReac Type Severity Reaction Status Date / Time No Known Allergies Allergy Verified 01/11/21 21:22 Home Medications Medication Instructions Recorded Confirmed Type aspirin 81 mg PO QAM 11/30/18 01/11/21 History cyanocobalamin (vitamin B-12) 1,000 mcg PO QAM 11/30/18 01/11/21 History [Vitamin B-12] esomeprazole magnesium [Nexium] 40 mg PO QAM 11/30/18 01/11/21 History ipratropium 20 mcg-albuterol 100 1 puffs INH Q4H PRN #4 gm 09/08/19 01/11/21 Rx mcg/actuation mist for inhalation Toujeo SoloStar U-300 Insulin 300 22 units SUBCUT DAILY #4.5 ml NS 12/10/19 01/11/21 Rx unit/mL (1.5 mL) subcutaneous pen flash glucose sensor ea 04/20/20 11/09/20 History pen needle, diabetic 32 gauge x #400 ea 04/22/20 11/09/20 Rx 1/4" lisinopril 5 mg tablet 5 mg PO QAM #90 tab 06/07/20 01/11/21 Rx cholecalciferol (vitamin D3) 25 mcg PO QAM 01/11/21 01/11/21 History [Vitamin D3] insulin aspart U-100 [Novolog 0 units SUBCUT DAILY 01/11/21 01/11/21 History Flexpen U-100 Insulin] levothyroxine 112 mcg PO DAILYBB 01/11/21 01/11/21 History Patient History Medical History 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) Colon polyps Diabetes mellitus, type 2 IDDM Diabetic peripheral neuropathy GERD (gastroesophageal reflux disease) controlled Hearing deficit BL H/A History of basal cell carcinoma History of BPH History of colon cancer s/p colon resection + chemo History of pneumonia History of SCC (squamous cell carcinoma) of skin Hypertension Hypothyroidism Interstitial lung disease Male erectile disorder of organic origin Osteoarthritis Post laminectomy syndrome Pulmonary emphysema stable Pulmonary nodules Spinal stenosis Surgical History History of back surgery History of basal cell carcinoma (BCC) excision History of colon resection History of colonoscopy History of esophagogastroduodenoscopy (EGD) History of hernia repair X 5 History of lumbar laminectomy for spinal cord decompression History of nasal septoplasty bilateral inferior turbinate reduction-03/29/18 History of nasal surgery History of phacoemulsification of cataract of left eye with intraocular lens implantation History of squamous cell carcinoma excision History of tooth extraction Family History Unknown Heart disease No family history of bleeding disorder Brother Hemochromatosis Social History Smoking Status: Never smoker Tobacco Type: Cigarettes Age Started Using Tobacco: 16; Age Quit Using Tobacco: 38; packs per day: 1; Years Smoked: 22; Cigarettes Per Day: 20; Number of Years Since Quit: 46; Second Hand Exposure: No; Hx Alcohol Use: No Hx Substance Use: No Preferred Language: Swedish Communication Ability: Effective Visual Impairment: Diminished Hearing Ability: Use of Hearing Aid Non Clinical Advisor Required: No Beliefs That Will Affect Care: None marital status: Current Living Situation: Spouse current occupational status: retired Other Information That Helps Us Care for You: No Feels Safe at Home: Yes Childhood Exposure to Second-Hand Smoke: No caffeine: Yes Dental Care, Regularly: Yes Physical Activity Frequency: Does not Exercise Seatbelt Use: always Sunscreen Use: Yes Assistive Devices: Denture - Upper, Denture - Lower, Glasses and Hearing Aid - Bilateral Assistive Devices Comment: hearing aids at home Review of Systems Review of Systems: All systems reviewed & are unremarkable except as noted in HPI & below No significant dizziness or lightheadedness. No history of syncope. Some minor swelling in the lower extremities which is chronic in nature. Physical Exam Physical Exam: The patient is alert and oriented. Mood and affect appeared normal. He answered all questions appropriately. HEENT: Pupils are equal and reactive to light and accommodation. Extraocular movements are intact. The sclerae are anicteric. Neuro: Cranial nerves intact Neck: Patient's neck is supple. He has palpable carotid pulses bilaterally without bruits on auscultation. There is no evidence of jugular venous distention. The thyroid is not enlarged. Lungs: Clear to auscultation bilaterally. He has good air movement without use of accessory muscles. No rales wheezes or rhonchi. Cardiac: Heart demonstrates an irregular rhythm. Normal rate.. Normal S1 and S2. No murmurs on examination. Pulses: The patient has palpable radial pulses bilaterally that are equal in intensity Extremities: There was no evidence of hypoperfusion. There is no cyanosis or c lubbing. Trace bilateral edema. Skin: I did not appreciate any rashes on examination today. Results & Data ([facility]) Vital Signs (Past 12 Hours) Vital Signs Temp Pulse Pulse Resp BP BP Pulse Ox 01/12/21 08:39 94 H 01/12/21 07:57 36.7 C 46 L 18 125/64 95 01/12/21 07:24 61 01/12/21 04:10 84 01/12/21 02:26 36.6 C 63 16 156/89 H 96 01/12/21 01:30 54 L 12 123/75 95 01/12/21 01:27 58 L 15 122/61 98 01/12/21 00:45 57 L 17 125/65 97 01/12/21 00:30 62 18 125/65 93 01/12/21 00:00 61 20 135/68 100 01/11/21 23:30 55 L 18 129/79 98 01/11/21 23:00 61 19 127/67 96 01/11/21 22:30 55 L 12 124/68 100 01/11/21 22:00 62 16 135/61 99 Laboratory Results Abnormal Lab Results 01/11/21 01/11/21 01/11/21 20:05 20:05 20:05 WBC 5.11 RBC 3.36 L Hgb 11.0 L Hct 32.8 L MCV 97.6 MCH 32.7 MCHC 33.5 RDW Std Deviation 52.0 H RDW Coeff of Tramaine 14.5 Plt Count 124 L MPV 11.1 H Immature Gran % (Auto) 0.0 Neut % (Auto) 52.8 Lymph % (Auto) 33.5 Rincon % (Auto) 9.0 Eos % (Auto) 2.5 Baso % (Auto) 2.2 Neut # (Auto) 2.70 Lymph # (Auto) 1.71 Rincon # (Auto) 0.46 Eos # (Auto) 0.13 Baso # (Auto) 0.11 Immature Gran # (Auto) 0.00 Giant Platelets PT 10.9 INR 1.1 APTT 26.6 PTT Ratio 1.0 Sodium 142 Potassium 4.1 Chloride 112 H Carbon Dioxide 24 Anion Gap 6.0 BUN 22 H Creatinine 1.48 H Est Cr Clr Drug Dosing 43.2 Est GFR ( Amer) 48.6 Est GFR (Non-Af Amer) 41.9 BUN/Creatinine Ratio 15.1 Glucose 130 H POC Glucose Calcium 8.8 Phosphorus Magnesium 2.0 Total Bilirubin 0.5 AST 15 ALT 24 Alkaline Phosphatase 70 Troponin I < 0.015 Total Protein 7.3 Albumin 3.7 Globulin 3.6 Albumin/Globulin Ratio 1.0 TSH Lyme Disease IgG Ab Lyme Disease IgM Ab COVID-19 Eval Order SARS-CoV-2 (PCR) Influenza Type A (PCR) Influenza Type B (PCR) RSV (RT-PCR) 01/11/21 01/11/21 01/11/21 20:05 20:51 20:51 WBC RBC Hgb Hct MCV MCH MCHC RDW Std Deviation RDW Coeff of Tramaine Plt Count MPV Immature Gran % (Auto) Neut % (Auto) Lymph % (Auto) Rincon % (Auto) Eos % (Auto) Baso % (Auto) Neut # (Auto) Lymph # (Auto) Rincon # (Auto) Eos # (Auto) Baso # (Auto) Immature Gran # (Auto) Giant Platelets PT INR APTT PTT Ratio Sodium Potassium Chloride Carbon Dioxide Anion Gap BUN Creatinine Est Cr Clr Drug Dosing Est GFR ( Amer) Est GFR (Non-Af Amer) BUN/Creatinine Ratio Glucose POC Glucose Calcium Phosphorus Magnesium Total Bilirubin AST ALT Alkaline Phosphatase Troponin I Total Protein Albumin Globulin Albumin/Globulin Ratio TSH 2.880 Lyme Disease IgG Ab Lyme Disease IgM Ab COVID-19 Eval Order CovFluRsv at [facility] SARS-CoV-2 (PCR) NEGATIVE Influenza Type A (PCR) Negative Influenza Type B (PCR) Negative RSV (RT-PCR) Negative 01/12/21 01/12/21 01/12/21 05:24 05:24 05:24 WBC 4.23 L RBC 3.46 L Hgb 11.3 L Hct 33.6 L MCV 97.1 MCH 32.7 MCHC 33.6 RDW Std Deviation 52.0 H RDW Coeff of Tramaine 14.7 H Plt Count 113 L MPV 11.2 H Immature Gran % (Auto) 0.0 Neut % (Auto) 51.1 Lymph % (Auto) 31.7 Rincon % (Auto) 10.6 Eos % (Auto) 4.0 Baso % (Auto) 2.6 Neut # (Auto) 2.16 Lymph # (Auto) 1.34 Rincon # (Auto) 0.45 Eos # (Auto) 0.17 Baso # (Auto) 0.11 Immature Gran # (Auto) 0.00 Giant Platelets 2+ PT INR APTT PTT Ratio Sodium 142 Potassium 4.2 Chloride 113 H Carbon Dioxide 25 Anion Gap 4.0 BUN 18 Creatinine 1.30 Est Cr Clr Drug Dosing 49.1 Est GFR ( Amer) 56.9 Est GFR (Non-Af Amer) 49.1 BUN/Creatinine Ratio 14.1 Glucose 177 H POC Glucose Calcium 8.9 Phosphorus 2.8 Magnesium Total Bilirubin AST ALT Alkaline Phosphatase Troponin I Total Protein Albumin Globulin Albumin/Globulin Ratio TSH Lyme Disease IgG Ab Positive A Lyme Disease IgM Ab Negative COVID-19 Eval Order SARS-CoV-2 (PCR) Influenza Type A (PCR) Influenza Type B (PCR) RSV (RT-PCR) 01/12/21 06:12 WBC RBC Hgb Hct MCV MCH MCHC RDW Std Deviation RDW Coeff of Tramaine Plt Count MPV Immature Gran % (Auto) Neut % (Auto) Lymph % (Auto) Rincon % (Auto) Eos % (Auto) Baso % (Auto) Neut # (Auto) Lymph # (Auto) Rincon # (Auto) Eos # (Auto) Baso # (Auto) Immature Gran # (Auto) Giant Platelets PT INR APTT PTT Ratio Sodium Potassium Chloride Carbon Dioxide Anion Gap BUN Creatinine Est Cr Clr Drug Dosing Est GFR ( Amer) Est GFR (Non-Af Amer) BUN/Creatinine Ratio Glucose POC Glucose 178 H Calcium Phosphorus Magnesium Total Bilirubin AST ALT Alkaline Phosphatase Troponin I Total Protein Albumin Globulin Albumin/Globulin Ratio TSH Lyme Disease IgG Ab Lyme Disease IgM Ab COVID-19 Eval Order SARS-CoV-2 (PCR) Influenza Type A (PCR) Influenza Type B (PCR) RSV (RT-PCR) Diagnostic Findings X-ray obtained the time admission did not reveal any acute cardiopulmonary process. Echocardiogram performed today revealed preserved LV systolic function without significant valvular abnormalities. ECG Additional Comments: EKG obtained the time admission revealed a sinus rhythm with frequent and consecutive atrial ectopy. I reviewed his electrocardiograms from 01/11/2021 revealed normal sinus rhythm with isolated atrial ectopy Reviewed his EKG from 11/30/2018. This reveals sinus rhythm with frequent PVCs in a pattern of ventricular bigeminy. PG Care Time/CCT Total # of Minutes Spent Total Time Spent with Patient: Total time spent is greater than 50% in coordination of care (as documented) at patient's floor/unit and/or counseling patient: Coding Level of Care Code 81668 Initial Inpt Care Lvl 3 Diagnoses Tachycardia-bradycardia I49.5
[2021-01-12] MEDS ORDERED: BUPIVACAINE 0.25% 30 ML VIAL ONE (10:24)
[2021-01-12] MEDS ORDERED: LIDOCAINE HCL 1% 20 ML VIAL ONE (10:24)
[2021-01-12] MEDS ORDERED: BACITRACIN INJ 50,000 UNIT VIAL ONE (10:25)
[2021-01-12] MEDS ORDERED: MIDAZOLAM HCL 5 MG/ML 1 ML VIAL ONE (11:01)
[2021-01-12] MEDS ORDERED: fentaNYL citrate 100 MCG/2 ML VIAL ONE (11:02)
--- NOTE | 2021-01-12 12:44 | Post Anesthesia Assessment ---
Date of Service January 12, 2021 Post Sedation Assessment Vital Signs Temp Pulse Pulse Resp BP BP Pulse Ox 01/12/21 10:41 60 17 129/63 95 01/12/21 09:59 50 L 16 98 01/12/21 08:39 94 H 01/12/21 07:57 36.7 C 46 L 18 125/64 95 01/12/21 07:24 61 01/12/21 04:10 84 01/12/21 02:26 36.6 C 63 16 156/89 H 96 01/12/21 01:30 54 L 12 123/75 95 01/12/21 01:27 58 L 15 122/61 98 01/12/21 00:45 57 L 17 125/65 97 01/12/21 00:30 62 18 125/65 93 01/12/21 00:00 61 20 135/68 100 01/11/21 23:30 55 L 18 129/79 98 01/11/21 23:00 61 19 127/67 96 01/11/21 22:30 55 L 12 124/68 100 01/11/21 22:00 62 16 135/61 99 01/11/21 21:30 69 15 142/72 H 100 01/11/21 21:00 56 L 21 139/73 99 01/11/21 20:30 65 14 125/70 99 01/11/21 20:14 82 26 H 121/80 100 01/11/21 20:00 98 H 13 115/58 L 100 01/11/21 19:26 36.6 C 54 L 22 141/82 H 95 Recovery Score Activity: Moves 4 extremities Respiration: Deep Breath/Cough Circulation: +/-20% PreAnes Value Consciousness: Fully Awake Oxygen Saturation: > 92% On Room Air Discharge Sedation Level of Care: Fast Track Phase II Post Sedation Plan On clinical assessment, the patient appears to have tolerated the sedation without complications. Patient is recovering as anticipated. Patient will continue to be monitored by nursing and may be discharged when sedation discharge criteria are met per below protocol. Upon Completions of procedure up to 15 minutes continue every 5 minute vital signs and the P.A.R. score; then discharge to a Phase I or Fast Track to Phase II per the following guidelines: * Discharge Patient to appropriate Phase II area if PAR is 8 or greater or return to pre- procedure baseline. The post - procedure orders will be as directed. * If PAR score is less than 8 or not return to pre-procedure baseline then patient will follow Phase I monitoring till PAR is reached for Phase II. The Phase I may be done in procedure room or may call to secure a Phase I area. * If naloxone or flumazenil are used for reversal, hold in Phase I for continued monitoring from when last reversal dose was given for a minimum of 60 minutes or longer pending the nurse and/or physician discretion of patient condition before discharge to Phase II. Please call the Sedation Physician to re-evaluate and complete post-note for discharge to Phase II area. Do NOT discharge from procedure sedation or Phase 1 until post- sedation evaluation note is complete by procedure /sedation MD Sedation Discharge Instructions to be given to the patient at discharge to home.
[2021-01-12] MEDS ORDERED: oxyCODONE HCL IR 5 MG TAB (IMMEDIATE RELEASE) PO PRN (12:45)
--- NOTE | 2021-01-12 12:45 | Electrophysiology Report ---
Date of Service January 12, 2021 Electrophysiology Procedure Electrophysiology Procedure Report Procedure performed: Implantation of dual-chamber permanent pacemaker Staff supervisor nut processing: Satish Ortega MD Indication: The patient is an 85-year-old gentleman who presented to the [facility] with symptoms of paroxysmal dyspnea. He was noted to have an association between slow heart rates and his symptoms. He was also noted to have episodes of tachycardia. Based on his symptoms and arrhythmias felt to be a good candidate for a permanent pacemaker due to symptomatic nonreversible sinus node dysfunction. Dual-chamber device was selected as he is currently in sinus rhythm wished to maintain AV synchrony. Procedure in detail: The patient was informed of the risks benefits and alternatives to the intended procedure and he wished to proceed. He was taken to the electrophysiology suite in a fasting state. A preoperative antibiotic had been administered. The patient was monitored electrocardiographically throughout today's procedure and conscious sedation was administered per protocol. The left upper pectoral area is prepped and draped in usual sterile fashion. This area was anesthetized using subcutaneous administration of a xylocaine solution. An incision was made at this site and carried down to the prepectoralis fascia using sharp dissection. Electrocautery was also employed for dissection as well as for hemostasis. A device pocket was fashioned tissues above the pectoralis muscle. Subsequent to this maneuver the left axillary vein was accessed using modified Seldinger technique. A sheath was placed over guidewire and used to facilitate a guiding catheter for placement of the ventricular lead on the interventricular septum. Adequate sensing and threshold parameters as well as the desired morphology of the paced beats were achieved prior to removal of the guiding catheter. The proximal portion lead was then sutured to the prepectoralis fascia using nonabsorbable suture. Sheath was placed over the remaining guidewire and used facilitate passage of the pacing lead to the right atrium. Adequate sensing and threshold parameters were obtained prior to active fixation of this lead to the endocardial surface. The proximal portion lead was then sutured the prepectoral fascia using nonabsorbable suture. The device pocket was irrigated with antibiotic solution. The leads were then attached to the device. The device and leads were then placed in the pocket and pocket was closed in 3 layers of absorbable suture. Steri-Strips and sterile dressing were applied. The device was tested noninvasively prior to conclusion the procedure. The patient tolerated procedure well there no immediate complications. Equipment used: New pulse generator: Nurse Reviewer [employer]. Model number: [id number] serial number [id number] Right atrial lead: Nurse Reviewer [employer]. Model number: [id number] serial number [id number] Right ventricular lead: Nurse Reviewer [employer]. Model number: 3830 serial number [id number] Measured data: Right atrial lead: P-waves measured 4.5 mV. Pacing threshold 1 volts at 0.4 millisecond with a pacing impedance of 627 Ohms Right ventricular lead: R-waves measured 20 mV. Pacing threshold 0.75 volts at 0.4 millisecond with a pacing impedance of 703 Ohms Impression: Successful implantation of dual-chamber permanent pacemaker with septal left bundle lead [facility] Electrophysiology codes Pacing Procedure 1: Pacin Insert/Replace Pacer A & V PG Moderate Sedation Codes Moderate Sedation Codes Procedure 1: Sedation/Anesthesia: 67335 Mod Sedation by the same physician;Init15 Min Child Age 5 & Up Procedure 2: Sedation/Anesthesia: 48831 Mod Sedation by the same physician; Ea [id number] Minutes
[2021-01-12] MEDS ORDERED: ceFAZolin 2000MG 2,000 MG/15 ML SYR IV ONE (13:00)
--- NOTE | 2021-01-12 14:30 | Electrocardiogram Report ---
Test Reason : Blood Pressure : / mmHG Vent. Rate : 097 BPM Atrial Rate : 136 BPM P-R Int : 000 ms QRS Dur : 098 ms QT Int : 348 ms P-R-T Axes : 000 -41 -06 degrees QTc Int : 441 ms Sinus rhythm with premature atrial and ventricular beats, some consecutive. Left axis deviation Abnormal ECG When compared with ECG of 30-NOV-2018 20:18, T wave inversion now evident in Inferior leads Confirmed by Satish Ortega ([id number]) on 01/12/2021 2:29:49 PM Referred By: REFERRED SELF Confirmed By:Lorne Ortega
--- NOTE | 2021-01-12 15:29 | Electrocardiogram Report ---
Test Reason : Blood Pressure : / mmHG Vent. Rate : 070 BPM Atrial Rate : 070 BPM P-R Int : 244 ms QRS Dur : 100 ms QT Int : 408 ms P-R-T Axes : -25 -44 054 degrees QTc Int : 440 ms Atrial-paced rhythm with prolonged AV conduction Left axis deviation Abnormal ECG When compared with ECG of 12-JAN-2021 13:17, (unconfirmed) No significant change was found Confirmed by Satish Ortega ([id number]) on 01/12/2021 3:29:47 PM Referred By: REFERRED SELF Confirmed By:Lorne Ortega
[2021-01-12] MEDS ORDERED: Nursing to Pharmacy Communication SCH (17:30)
[2021-01-13 06:02] LABS: Basophils # (auto) 0.07 K/uL (0-0.2); Basophils % (auto) 1.3 %; Eosinophils # (auto) 0.19 K/uL (0-0.5); Eosinophils % (auto) 3.6 %; Hematocrit (blood only) 33.4 % (42-52); Hemoglobin 11.2 g/dL (14.0-18.0); Immature Granulocytes # (auto) 0.01 K/uL (0.00-0.02); Immature Granulocytes % (auto) 0.2 %; Lymphocytes # (auto) 1.38 K/uL (1.2-3.4); Lymphocytes % (auto) 26.4 %; Mean Corpuscular Hemoglobin 32.7 pg (25-34); Mean Corpuscular Hgb Conc 33.5 g/dL (32-36); Mean Corpuscular Volume 97.7 fL (80-100); Mean Platelet Volume 10.7 fL (7.4-10.4); Monocytes # (auto) 0.63 K/uL (0.11-0.59); Neutrophils # (auto) 2.95 K/uL (1.4-6.5); Neutrophils % (auto) 56.5 %; Platelet Count 106 K/uL (130-400); RDW Coefficient of Variation 14.7 % (11.5-14.5); RDW Standard Deviation 52.4 fL (36.4-46.3); Red Blood Count 3.42 M/uL (4.7-6.1); White Blood Count 5.23 K/uL (4.8-10.8)
[2021-01-13 06:36] LABS: BUN Creatinine Ratio 14.1 (10-20); Calcium 8.8 mg/dl (8.5-10.1); Creatinine Clr Calc Pharmacy 38.7 ml/min; Est GFR (African American) 47.1; Est GFR (Non-African American) 40.6; Phosphorus 3.2 mg/dl (2.5-4.9); Potassium 3.7 mmol/L (3.5-5.1)
[2021-01-13] MEDS: LEVOTHYROXINE SODIUM 112 MCG TABLET PO SCH (06:38)
--- NOTE | 2021-01-13 07:39 | XRay Report ---
XR chest 2V PA/lateral CLINICAL HISTORY: Pacemaker insertion. COMPARISON STUDY: Chest CT January 22, 2018. Chest radiograph January 11, 2021. FINDINGS: There is no pneumothorax following placement of a dual-lead left subclavian pacer. Lead tip s project over the expected location of the right atrial appendage and right ventricle. There is no e vidence for pulmonary edema. There is emphysema. Cardiac size is normal. Mediastinal contours are nor mal. Left basilar opacity favors scarring or atelectasis. IMPRESSION: No pneumothorax following placement of a left subclavian pacer. ACT 112: Negative or not required by law. Electronically signed by: Christophe Echeverria M.D. 01/13/2021 7:38 AM
[2021-01-13] MEDS: INSULIN ASPART 100 UNITS/ML 3 ML PEN SC SCH ×2 (08:12→11:47)
[2021-01-13] MEDS: PANTOprazole 40 MG TAB PO SCH (08:13)
[2021-01-13] MEDS: lisinopril 5 MG TAB PO SCH (08:13)
[2021-01-13] MEDS: INSULIN GLARGINE SOLOSTAR 100 UNITS/ML 3 ML PEN SC SCH (08:13)
--- NOTE | 2021-01-13 10:01 | Discharge Summary ---
Date of Service January 13, 2021 Admission HPI Per Admitting Provider Jerardo Cline is here for progressively worsening episodes of shortness of breath. He has noticed over the last couple of weeks that he has been having more episodes of shortness of breath. The episodes can last from a minute to a couple hours. There seems to be no correlation between activity and commonly the shortness of breath will occur while sitting down. He uses an inhaler intermittently, most recently 4-5 days ago and this does not appear to improve his symptoms. He follows with Dr. Frias. for shortness of breath and was found to have emphysema and obstructive pattern on PFT's. He was noted to have PVC's and extrasystolic beats in April of last year. [place] Hx.: worked in [employer] and [employer] prior tobacco use: 21 pack year history ETOH: not sig. Substance use: none Admission Exam Per Admitting Provider Constitutional: WD/WN, vitals as above Eyes: PERRL, conjunctivae normal, anicteric sclerae - arcus senilis ENMT: external ear and nose normal, oropharynx normal Neck: normal visual inspection Respiratory: normal respiratory effort, lungs clear to auscultation Cardiovascular: Vessels: + carotid bruit - regular rate with a dropped beat while listening - no clear murmur appreciated - 1-2+ pitting edema in the lower extremity to the mid lower extremity Gastrointestinal (Abdomen): normal bowel sounds, soft, nontender, no hepatosplenomegaly Skin: no rashes, warm and dry Neurologic: no focal motor deficits Psychiatric: Orientation: alert and oriented x 3 Apperance: appropriately dressed Eye Contact: good eye contact Speech: normal rate/rhythm/volume of speech; no pressured speech Affect: euthymic affect Thought Process: goal directed thought process Principal Diagnosis SOB Discharge Exam Constitutional: obese, in no apparent distress, sitting comfortably in bed. Eyes: EOMI, pupils equal and reactive bilaterally, no scleral icterus Cardiac: RRR, no murmurs, gallops or rubs. Normal S1, S2 Pulm: CTA BL, no wheezes, rhonchi, crackles or rubs, moving air well throughout both lungs Abd: soft, nontender, nondistended, normal bowel sounds, no rebound or guarding Extremities: 2+ peripheral pulses, no edema Neuro: no focal deficits, moving all 4 limbs, A&Ox3 Discharge Data Allergies Allergy/AdvReac Type Severity Reaction Status Date / Time No Known Allergies Allergy Verified 01/11/21 21:22 Consultations 01/11/21 21:16 ED Decision to Admit Stat 01/12/21 02:25 Consult Cardiology Routine Procedures Performed Operation Date: 01/12/21 11:00 Actual Procedures p Pacer with A/V Leads (Dual) - Alexis Ortega MD s Bundle of his Recording - Alexis Ortega MD Ordered Studies 01/12/21 10:45 EP Lab Images for PACS ONCE Hospital Course (1) SOB (shortness of breath): 85 yo M with hx IDDM, CKD3, hypothyroidism, hx colon cancer, pulmonary nodules, pulmonary emphysema, HTN, anemia. SOB, likely cardiac etiology - 21 pack year hx, without response on inhaler therapies d/c from pulm clinic - negative CXR, no external oxygen requirement - abnormal EKG with hx tachybrady -- Pacemaker placed on 01/12 to prevent gavin episodes - discharged on metoprolol succinate 25 mg to control tachycardic episodes Discussed with patient to follow up with PCP regarding ongoing brief SOB episodes and looking into alternate etiologies and symptom control. All other chronic medical conditions managed per home regimen. (2) Tachycardia-bradycardia: (3) Abnormal ECG: (4) Controlled type 2 diabetes mellitus with diabetic neuropathy, with long-term current use of insulin: (5) CKD (chronic kidney disease), stage III: (6) Hypothyroidism: (7) Hypertension: Total Time Total Time Spent Total Time Spent (In Minutes): see attending attestation Discharge Plan Discharge Items Patient Disposition: Home - Self-Care Reason For Visit: shortness of breath Discharge Diagnosis: shortness of breath Condition on Discharge: Fair Activity: Resume your previous activity Non-emergency contact: Primary Care Provider Call non-emergency contact if: you have any medication questions and your symptoms worsen Follow-up/Referrals: Dez Jain MD [Primary Care Provider] - 01/20/21 11:15 am Diet: Carb Consistent or DM2 Addtl Attending Provider Instructions: You were seen in the hospital for an evaluation of ongoing episodes of shortness of breath. A CT scan of your chest was negative for a blood clot in your lungs, abnormalities in your lungs, or pneumonia. Based on your heart monitoring we found that your heart rapidly switched from too fast beats to too slow. You were evaluated by cardiology and had a pace maker placed that will stop your heart rate from dropping too low. You were also started on a daily medication called Toprol 25mg daily,to keep your heart from going too fast. You will need to schedule a follow up visit with cardiology to check on your pace maker. Your shortness of breath episodes may require ongoing workup with your primary care physician, and maybe pulmonology. Pending Studies at Discharge: No Stand-Alone Forms: My [facility], Smoking Cessation Medications and DC Order Prescriptions: New metoprolol succinate 25 mg tablet extended release 24 hr 25 mg PO DAILY Qty: 30 RF: 0 Continued Combivent Respimat 20-100 mcg/actuation mist 1 puffs INH Q4H PRN (Reason: bronchospasm) Qty: 4 RF: 2 Toujeo SoloStar U-300 Insulin 300 unit/mL (1.5 mL) insulin pen 22 units subcut DAILY Qty: 4.5 RF: 5 (DME) pen needle, diabetic 32 gauge x 1/4" needle See Rx Instructions .ROUTE .MEDSUPPLY Qty: 400 RF: 3 lisinopril 5 mg tablet 5 mg PO QAM Qty: 90 RF: 3 (DME) FreeStyle Kvng 14 Day Sensor Kit See Rx Instructions .ROUTE .MEDSUPPLY RF: 0 cyanocobalamin (vitamin B-12) [Vitamin B-12] 1,000 mcg Tablet 1,000 mcg PO QAM RF: 0 aspirin 81 mg Tablet,Delayed Release (Dr/Ec) 81 mg PO QAM RF: 0 esomeprazole magnesium [Nexium] 40 mg Capsule,Delayed Release(Dr/Ec) 40 mg PO QAM RF: 0 cholecalciferol (vitamin D3) [Vitamin D3] 25 mcg (1,000 unit) Capsule 25 mcg PO QAM RF: 0 levothyroxine 112 mcg tablet 112 mcg PO DAILYBB RF: 0 insulin aspart U-100 [Novolog Flexpen U-100 Insulin] 100 unit/mL (3 mL) insulin pen 0 units subcut DAILY RF: 0 Discharge Orders: Discharge Order (Routine); Ordered 01/13/21 Ordered By: Jana Joaquin Admission Data Admit Date/Time: 01/11/21 22:56 Attending Provider: Alexis Vergara Admit Provider: oYvanny Lomax Primary Care Provider: Dez Jain Other Providers: Jana Joaquin ; Phoebe Ibrahim Christophe W. Other Interventions: Discharge Summary Assessment (RN) Last Done: 01/13/21 11:33 Supervising Physician Co-Signing Physician Notes Attending attestation Pt seen and examined in concert with Dr. Joaquin. In agreement with the documented findings as noted in the resident documentation with any exceptions or additions as noted here. Reduction of frequency of episodes of SOB, but considering variable course hesitant to report resolution. Tolerating BB therapy well. On examination, S1/S2 nl RRR no MCG. CTAB. Abd NT/ND BS+ve Intermittent shortness of breath with atial ectopy - cardiology consultation - pacemaker placed, started on metoprolol. Will follow with cardiology and primary care upcoming. h/o emphysema without acute exacerbation - resume home regimen Else see resident documentation as noted. Total attending time spent on this patient's case on the day of discharge: 35 minutes. Resident Activity Tracking Resident Involvement: Resident Care Provided Care Provided: Adult Hospital Medicine
--- NOTE | 2021-01-13 11:29 | Cardiology Progress Note ---
Date of Service January 13, 2021 Assessment & Plan (1) Tachycardia-bradycardia: He continues to have episodes of atrial arrhythmias. Some PVCs as well. Placement of his pacemaker yesterday we can be aggressive with medical therapy. Would suggest starting with a daily dose of metoprolol succinate. This can be increased in the outpatient setting. For persistent arrhythmia we could even consider amiodarone. Unclear association between his arrhythmia and breathing difficulty. We may not have good understanding of the relationship until we start medical therapy for his tachycardia. The patient should refrain from lifting the left arm above the shoulder or behind the neck for 6 weeks. He should keep his wound dry and the Steri-Strips intact until follow-up next week in the clinic which I will arrange. Admission and Anticipated Discharge Date Admission Date: January 11, 2021 Subjective This morning the patient claims to be feeling well. He denies any pain at the device implant site in the left pectoral area. He still has some episodes of breathing difficulty. Essentially unchanged. Physical Exam 2 Physical Exam: Device implant site appears to be healing well. No ecchymosis. No hematoma. No drainage. No erythema. Results & Data ([facility]) Vital Signs (Past 12 Hours) Vital Signs Temp Pulse Resp BP BP Pulse Ox 01/13/21 11:07 36.7 C 42 L 18 115/55 L 99 01/13/21 08:38 87 01/13/21 07:00 36.7 C 42 L 19 118/51 L 100 01/13/21 03:49 36.7 C 82 20 109/54 L 96 Laboratory Results Abnormal Lab Results 01/12/21 01/12/21 01/12/21 13:29 16:22 20:55 WBC RBC Hgb Hct MCV MCH MCHC RDW Std Deviation RDW Coeff of Tramaine Plt Count MPV Immature Gran % (Auto) Neut % (Auto) Lymph % (Auto) [place] % (Auto) Eos % (Auto) Baso % (Auto) Neut # (Auto) Lymph # (Auto) [place] # (Auto) Eos # (Auto) Baso # (Auto) Immature Gran # (Auto) Sodium Potassium Chloride Carbon Dioxide Anion Gap BUN Creatinine Est Cr Clr Drug Dosing Est GFR ( Amer) Est GFR (Non-Af Amer) BUN/Creatinine Ratio Glucose POC Glucose 141 H 160 H 144 H Calcium Phosphorus Magnesium 01/13/21 01/13/21 01/13/21 05:50 05:50 07:17 WBC 5.23 RBC 3.42 L Hgb 11.2 L Hct 33.4 L MCV 97.7 MCH 32.7 MCHC 33.5 RDW Std Deviation 52.4 H RDW Coeff of Tramaine 14.7 H Plt Count 106 L MPV 10.7 H Immature Gran % (Auto) 0.2 Neut % (Auto) 56.5 Lymph % (Auto) 26.4 [place] % (Auto) 12.0 Eos % (Auto) 3.6 Baso % (Auto) 1.3 Neut # (Auto) 2.95 Lymph # (Auto) 1.38 [place] # (Auto) 0.63 H Eos # (Auto) 0.19 Baso # (Auto) 0.07 Immature Gran # (Auto) 0.01 Sodium 141 Potassium 3.7 Chloride 112 H Carbon Dioxide 23 Anion Gap 6.0 BUN 21 H Creatinine 1.52 H Est Cr Clr Drug Dosing 38.7 Est GFR ( Amer) 47.1 Est GFR (Non-Af Amer) 40.6 BUN/Creatinine Ratio 14.1 Glucose 122 H POC Glucose 131 H Calcium 8.8 Phosphorus 3.2 Magnesium 2.0 Diagnostic Findings Chest x-ray obtained this morning reveals adequate lead placement without pneumothorax Device interrogation revealed good function on both atrial and ventricular leads.
[2021-01-13] MEDS ORDERED: METOPROLOL SUCC 25MG EXT REL TAB PO SCH (11:30)
--- NOTE | 2021-01-13 12:21 | Electrocardiogram Report ---
Test Reason : Blood Pressure : / mmHG Vent. Rate : 087 BPM Atrial Rate : 087 BPM P-R Int : 168 ms QRS Dur : 152 ms QT Int : 360 ms P-R-T Axes : 016 265 028 degrees QTc Int : 433 ms Sinus rhythm with frequent atrial-paced complexes and Premature supraventricular complexes in [facility] Incomplete right bundle branch block Abnormal ECG When compared with ECG of 12-JAN-2021 13:19, Premature supraventricular complexes are now Present incomplete Right bundle branch block is now Present Confirmed by Satish Ortega ([id number]) on 01/13/2021 12:21:26 PM Referred By: REFERRED SELF Confirmed By:Lorne Ortega
[2021-01-14 04:29] LABS: 18KDIGG Band REACTIVE; 23KDIGG Band NON-REACTIVE; 23KDIGM Band NON-REACTIVE; 28KDIGG Band NON-REACTIVE; 30KDIGG Band NON-REACTIVE; 39KDIGG Band REACTIVE; 39KDIGM Band NON-REACTIVE; 41KDIGG Band REACTIVE; 41KDIGM Band NON-REACTIVE; 45KDIGG Band NON-REACTIVE; 58KDIGG Band REACTIVE; 66KDIGG Band REACTIVE; 93KDIGG Band REACTIVE; Lyme Antibodies, WB IgG POSITIVE (NEGATIVE); Lyme Antibodies, WB IgM NEGATIVE (NEGATIVE)
== END 2021-01-13 12:24 | disposition home or self-care (01) | DRG 243 ==
LOC: ED 19:19 → 2W 01-12 01:58 → SUATTDRO 01-12 02:21 → 2S 01-12 13:15

== ENCOUNTER 2023-03-30 13:51 | Inpatient (IN) ==
[2023-03-30] MEDS ORDERED: SODIUM CHLORIDE 0.9% 1000ML 1,000 ML IV SCH (14:00)
--- NOTE | 2023-03-30 14:03 | Emergency Department Note ---
Impression & Plan Heat stroke, AMS (altered mental status), Hypomagnesemia, MARIE (acute kidney injury), Paroxysmal SVT (supraventricular tachycardia) ED Provider Note NAME: SHELTON MEYER AGE: 87 SEX: M : 1935 ARRIVES VIA: Ambulance INFORMANT: EMS, ED PROVIDER(S): Diaz Fry DO CHIEF COMPLAINT: Altered mental status HPI: The patient is an 87-year-old male who presented to the emergency department for evaluation of altered mental status. The patient was found outside today. It is unsure exactly how long he was outside but it could be approxi-1 to 2 hours. The patient was found face down in a mulch bed. It is unclear if he fell. The patient does not offer any complaints. The patient is confused and does not answer questions appropriately. Apparently the visiting nurse for the patient's significant other found the patient. He had arrived via ambulance. The patient was found to have a normal blood sugar prior to arrival. Ice packs were applied to the patient's body by the EMS personnel. ROS: See above HPI for pertinent positives & negatives. A total of 10 systems reviewed and were otherwise negative. PAST MEDICAL HISTORY: See Below PAST SURGICAL HISTORY: See Below FAMILY HISTORY: See Below SOCIAL HISTORY: See Below HOME MEDICATIONS: See Below ALLERGIES: See Below VITALS: See Below PHYSICAL EXAMINATION: GENERAL: The patient is listless and slow to respond to questions. EYES: The conjunctivae are clear. The pupils are dilated and reactive to light bilaterally. EARS, NOSE, MOUTH AND THROAT: The nose is without any evidence of any deformity. Mucous membranes are dry. NECK: The neck is nontender and supple. RESPIRATORY: Tachypnea was noted. Lung sounds were clear throughout. CARDIOVASCULAR: Regular rate and rhythm noted there no murmurs rubs or gallops normal S1 normal S2. GASTROINTESTINAL: The abdomen is soft. Abdomen is nontender. MUSCULOSKELETAL/EXTREMITIES: There is no evidence of gross deformity full range of motion is noted in the hips and shoulders. SKIN: Skin was hot and dry. There is no significant pedal edema. NEUROLOGIC: The patient does not answer questions or follows commands. He does somewhat respond to his name but only moans. MEDICAL DECISION MAKING: The patient is an 87-year-old male who presented to the emergency department for altered mental status. The patient arrived via ambulance. He was found outside facedown in his mulch bed. The patient was not able to give any history. The patient's skin was very warm and his core temperature was 104.8 degrees. The patient was treated with cold fluids as well as a cooling blanket. He was reevaluated multiple times. His condition continued to improve. The patient had laboratory and radiographic studies obtained. There is no intracranial process. There is also no traumatic injury noted of his brain or cervical spine. I [facility] the [facility] have agreed to evaluate the patient in the emergency department. The patient's pacemaker was interrogated. It appears as though he may have had an episode of SVT about the time that this occurred. It is unclear if he had a syncopal episode. When he started to become more coherent he was complaining of left eye problems including visual loss in the left eye. He did have some mulch in his left eye which was irrigated out by nursing staff. For this reason further neurologic evaluation was undertaken by the admitting team. The patient was also treated with IV antibiotics empirically. The patient does appear to have episodes of tachycardia intermittently. When these occur he does have a slight drop in his blood pressure. Triage Nursing notes reviewed. Prior medical records reviewed Vital Signs: reviewed and remarkable for hypotension and episodes of tachycardia. Differential diagnosis: Infection, hypoglycemia, electrolyte abnormalities, overdose, toxicologic, cardiac sources, intracerebral event, neurologic, trauma, as well as other pa thologies. ER treatment provided: See below Diagnostics interpreted by me: ECG: EKG was obtained in the emergency department. My interpretation is sinus tachycardia 129 bpm. There is no ectopy. Nonspecific ST abnormalities were noted. This was compared to a tracing from May 26, 2022. There was an increase in the ventricular rate otherwise no significant changes noted. Cardiac Monitoring: An order was placed for continuous cardiac monitoring. The monitor shows a rate of 70 bpm with paced rhythm. Laboratory studies: As stated above and show below. Imaging studies: See below. Radiographic imaging was reviewed by myself Consultation(s): I discussed this case with Dr. Rose who [facility] ED COURSE: Procedures: none Critical Care: I have personally spent greater than 45 minutes of critical care time in the direct management of this patient. This includes bedside care, interpretation of diagnostic studies, and testing, discussion with consultants, patient, and family members, and other required patient management activities. This 45 minutes is in excess of all separately billable procedures. 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 [employer]. Follows with [facility] (Pacer check 05/15/22 per EP visit note) Post laminectomy syndrome Spinal stenosis Surgical History History of back surgery X2 ([place]) History of basal cell carcinoma (BCC) excision History of colon resection History of colonoscopy History of esophagogastroduodenoscopy (EGD) History of hernia repair X 5 History of nasal septoplasty bilateral inferior turbinate reduction-03/29/18 History of phacoemulsification of cataract of left eye with intraocular lens implantation History of right cataract surgery History of squamous cell carcinoma excision History of tooth extraction Hx of cardiac pacemaker Implanted December 2020 Hx of left cataract extraction Spinal cord stimulator status inserted 01/2022 Family History Unknown Heart disease No family history of bleeding disorder Brother Hemochromatosis Brother Myocardial infarction Denies family history of Ovarian cancer Prostate cancer Breast cancer Colorectal cancer Social History Smoking Status: Former smoker Tobacco Type: Cigarettes Age Started Using Tobacco: 16; Age Quit Using Tobacco: 38; packs per day: 1; Cigarettes Per Day: Quit 45-50 years ago; Second Hand Exposure: No; Do You Dip or Chew Tobacco: No; Tobacco Cessation Education Requested by Patient: No Hx Alcohol Use: No Hx Substance Use: No Preferred Language: Indonesian Communication Ability: Effective Visual Impairment: Partially Limited Hearing Ability: Use of Hearing Aid Quarter Backer Required: No Beliefs That Will Affect Care: None marital status: Current Living Situation: Spouse current occupational status: retired 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 Other Information That Helps Us Care for You: No Feels Safe at Home: Yes Safety Concerns: Feels Safe At This Time Childhood Exposure to Second-Hand Smoke: No Diet: regular caffeine: Yes Dental Care, Regularly: Yes Physical Activity Frequency: 1-2 Times per Week Physical Activity Frequency Comment: pulm biking Seatbelt Use: always Sunscreen Use: Yes Do you think of yourself as: straight/heterosexual Assistive Devices: Cane, Denture - Upper, Denture - Lower, Hearing Aid - Bilateral, Walker and Other Allergies Allergies Allergy/AdvReac Type Severity Reaction Status Date / Time No Known Allergies Allergy Verified 03/30/23 16:09 Home Meds Home Medications Medication Instructions Recorded Confirmed cyanocobalamin (vitamin B-12) 1,000 mcg PO QAM 11/30/18 03/30/23 1,000 mcg tablet (Vitamin B-12) esomeprazole magnesium 40 mg 40 mg PO QAM 11/30/18 03/30/23 capsule,delayed release (Nexium) cholecalciferol (vitamin D3) 25 25 mcg PO QAM 01/11/21 03/30/23 mcg (1,000 unit) capsule (Vitamin D3) insulin aspart U-100 100 unit/mL 0 unit subcut TIDM 03/30/23 03/30/23 (3 mL) subcutaneous pen (Novolog FlexPen U-100 Insulin aspart) insulin glargine U-300 conc 300 0 unit subcut HS 03/30/23 03/30/23 unit/mL (1.5 mL) subcutaneous pen (Toujeo SoloStar U-300 Insulin) latanoprost 0.005 % eye drops 1 drp OPB DAILY 03/30/23 03/30/23 levothyroxine 112 mcg tablet 112 mcg PO QAM 03/30/23 03/30/23 Previous Rx's Medication Instructions Recorded lisinopril 5 mg tablet 5 mg PO QAM #90 tabs 08/08/22 albuterol sulfate 90 mcg/actuation 2 inh inhalation QID PRN shortness 01/23/23 aerosol inhaler of breath or wheezing #8.5 grams fluticasone furoate 100 1 inh inhalation DAILY #60 ea 05/02/23 mcg-vilanterol 25 mcg/dose inhalation powder (Breo Ellipta) Results & Data (ED) Vital Signs Vital Signs - 24 hr 03/30/23 14:01 03/30/23 14:24 03/30/23 14:26 Temperature Temperature Source Pulse Rate 124 H 120 H Pulse Rate [Apical] Pulse Rate from SpO2 Sensor Pulse Rhythm [Apical] Pulse Strength [Apical] Respiratory Rate 24 Respiratory Effort / Characteristics Respiratory Depth Respiratory Pattern Blood Pressure Blood Pressure [Right Arm] Blood Pressure Mean Blood Pressure Mean [Right Arm] Blood Pressure Position Blood Pressure Position [Right Arm] Pulse Oximetry 89 L 92 Oxygen Delivery Method Room Air Nasal Cannula Oxygen Flow Rate 2 Sepsis Recent Fever Within 48 Hours Sepsis New/Unexplained Change in Mental Status Sepsis Action Taken by Nursing 03/30/23 13:50 03/30/23 14:38 03/30/23 14:46 Temperature 40.5 C H 38.8 C H 38.5 C H Temperature Source Rectal Meneses Cath ( Temp Sensing) Meneses Cath ( Temp Sensing) Pulse Rate 138 H Pulse Rate [Apical] 109 H Pulse Rate from SpO2 Sensor Pulse Rhythm [Apical] Regular Pulse Strength [Apical] Normal Respiratory Rate 23 18 Respiratory Effort / Characteristics Spontaneous Non-Labored Spontaneous Respiratory Depth Normal Normal Respiratory Pattern Regular Regular Blood Pressure 118/69 Blood Pressure [Right Arm] 98/48 L Blood Pressure Mean 85 Blood Pressure Mean [Right Arm] 64 Blood Pressure Position Lying Blood Pressure Position [Right Arm] Semi-fowlers Pulse Oximetry 100 97 Oxygen Delivery Method Non-rebreather Nasal Cannula Oxygen Flow Rate 15 2 Sepsis Recent Fever Within 48 Hours Yes Sepsis New/Unexplained Change in Mental Status Yes Sepsis Action Taken by Nursing Physician Notified 03/30/23 14:18 03/30/23 14:20 03/30/23 14:30 Temperature 39.4 C H 39.4 C H Temperature Source Pulse Rate 114 H 122 H 120 H Pulse Rate [Apical] Pulse Rate from SpO2 Sensor 122 H 95 H Pulse Rhythm [Apical] Pulse Strength [Apical] Respiratory Rate 26 H 27 H 25 H Respiratory Effort / Characteristics Respiratory Depth Respiratory Pattern Blood Pressure 94/51 L 96/48 L Blood Pressure [Right Arm] Blood Pressure Mean 65 64 Blood Pressure Mean [Right Arm] Blood Pressure Position Blood Pressure Position [Right Arm] Pulse Oximetry 98 94 94 Oxygen Delivery Method Nasal Cannula Nasal Cannula Oxygen Flow Rate 2 2 Sepsis Recent Fever Within 48 Hours Sepsis New/Unexplained Change in Mental Status Sepsis Action Taken by Nursing 03/30/23 15:20 03/30/23 15:36 03/30/23 14:40 Temperature 36.2 C L 36.0 C L Temperature Source Meneses Cath ( Temp Sensing) Meneses Cath ( Temp Sensing) Pulse Rate 116 H Pulse Rate [Apical] 128 H Pulse Rate from SpO2 Sensor 111 H Pulse Rhythm [Apical] Pulse Strength [Apical] Respiratory Rate 16 24 Respiratory Effort / Characteristics Non-Labored Spontaneous Respiratory Depth Normal Respiratory Pattern Regular Blood Pressure Blood Pressure [Right Arm] 99/60 L Blood Pressure Mean Blood Pressure Mean [Right Arm] 73 Blood Pressure Position Blood Pressure Position [Right Arm] Lying Pulse Oximetry 96 95 Oxygen Delivery Method Nasal Cannula Oxygen Flow Rate 2 Sepsis Recent Fever Within 48 Hours Sepsis New/Unexplained Change in Mental Status Sepsis Action Taken by Nursing 03/30/23 14:45 03/30/23 14:45 03/30/23 14:50 Temperature Temperature Source Pulse Rate 109 H 110 H Pulse Rate [Apical] Pulse Rate from SpO2 Sensor 109 H 98 H Pulse Rhythm [Apical] Pulse Strength [Apical] Respiratory Rate 22 22 Respiratory Effort / Characteristics Respiratory Depth Respiratory Pattern Blood Pressure 98/48 L Blood Pressure [Right Arm] Blood Pressure Mean 64 Blood Pressure Mean [Right Arm] Blood Pressure Position Blood Pressure Position [Right Arm] Pulse Oximetry 96 97 Oxygen Delivery Method Oxygen Flow Rate Sepsis Recent Fever Within 48 Hours Sepsis New/Unexplained Change in Mental Status Sepsis Action Taken by Nursing 03/30/23 15:00 03/30/23 15:00 03/30/23 15:10 Temperature Temperature Source Pulse Rate 103 H 136 H Pulse Rate [Apical] Pulse Rate from SpO2 Sensor 98 H 136 H Pulse Rhythm [Apical] Pulse Strength [Apical] Respiratory Rate 19 19 Respiratory Effort / Characteristics Respiratory Depth Respiratory Pattern Blood Pressure 104/58 L Blood Pressure [Right Arm] Blood Pressure Mean 73 Blood Pressure Mean [Right Arm] Blood Pressure Position Blood Pressure Position [Right Arm] Pulse Oximetry 97 97 Oxygen Delivery Method Oxygen Flow Rate Sepsis Recent Fever Within 48 Hours Sepsis New/Unexplained Change in Mental Status Sepsis Action Taken by Nursing 03/30/23 15:15 03/30/23 15:15 03/30/23 15:20 Temperature Temperature Source Pulse Rate 133 H 129 H Pulse Rate [Apical] Pulse Rate from SpO2 Sensor 131 H 129 H Pulse Rhythm [Apical] Pulse Strength [Apical] Respiratory Rate 19 16 Respiratory Effort / Characteristics Respiratory Depth Respiratory Pattern Blood Pressure 99/60 L Blood Pressure [Right Arm] Blood Pressure Mean 73 Blood Pressure Mean [Right Arm] Blood Pressure Position Blood Pressure Position [Right Arm] Pulse Oximetry 98 87 L Oxygen Delivery Method Oxygen Flow Rate Sepsis Recent Fever Within 48 Hours Sepsis New/Unexplained Change in Mental Status Sepsis Action Taken by Nursing 03/30/23 15:30 03/30/23 15:30 03/30/23 15:40 Temperature Temperature Source Pulse Rate 124 H 121 H Pulse Rate [Apical] Pulse Rate from SpO2 Sensor 124 H 121 H Pulse Rhythm [Apical] Pulse Strength [Apical] Respiratory Rate 14 24 Respiratory Effort / Characteristics Respiratory Depth Respiratory Pattern Blood Pressure 128/76 Blood Pressure [Right Arm] Blood Pressure Mean 93 Blood Pressure Mean [Right Arm] Blood Pressure Position Blood Pressure Position [Right Arm] Pulse Oximetry 98 95 Oxygen Delivery Method Oxygen Flow Rate Sepsis Recent Fever Within 48 Hours Sepsis New/Unexplained Change in Mental Status Sepsis Action Taken by [facility] Medications Current Medication List: was personally reviewed by me Laboratory Data Attestation: I reviewed the patient's lab results. 03/30/23 14:05 03/30/23 14:05 Lab Results 03/30/23 03/30/23 03/30/23 Range/Units 14:05 14:05 14:05 WBC 7.07 (4.8-10.8) K/ul RBC 2.99 L (4.70-6.10) M/uL Hgb 9.7 L (14.0-18.0) g/dl POC Hgb (14.0-18.0) g/dl Hct 28.5 L (42.0-52.0) % POC Hct (42-52) % MCV 95.3 (80.0-100.0) fL MCH 32.4 (25.0-34.0) pg MCHC 34.0 (32.0-36.0) g/dL RDW Std Deviation 53.5 H (36.4-46.3) fL RDW Coeff of Tramaine 15.4 H (11.5-14.5) % Plt Count 128 L (130-400) K/uL MPV 10.6 (9.4-12.4) fL Immature Gran % (Auto) 0.7 % Neut % (Auto) 75.3 % Lymph % (Auto) 19.9 % [place] % (Auto) 2.5 % Eos % (Auto) 0.6 % Baso % (Auto) 1.0 % Neut # (Auto) 5.32 (1.40-6.50) K/uL Lymph # (Auto) 1.41 (1.2-3.4) K/uL [place] # (Auto) 0.18 (0.11-0.59) K/uL Eos # (Auto) 0.04 (0-0.50) K/uL Baso # (Auto) 0.07 (0-0.2) K/uL Immature Gran # (Auto) 0.05 (0.01-0.20) K/uL ESR (0-20) mm/hr PT 11.6 (9.0-12.0) Seconds INR 1.1 (0.9-1.1) APTT 23.5 (21.0-31.0) Seconds PTT Ratio 0.8 VBG pH (7.36-7.41) VBG pCO2 (38-50) mmHg VBG pO2 mmHg VBG HCO3 mmol/L VBG O2 Saturation % VBG Base Excess mEq/L POC Sodium (135-144) mmol/L Sodium 137 (136-145) mmol/L POC Potassium (3.3-5.0) mmol/L Potassium 4.9 (3.5-5.1) mmol/L POC Chloride (101-112) mmol/L Chloride 108 H (98-107) mmol/L Carbon Dioxide 19 L (21-32) mmol/L POC Total CO2 (24-31) mmol/L Anion Gap 10 (3-11) POC Anion Gap (16-25) mmol/L POC BUN (7-18) mg/dl BUN 29 H (6-23) mg/dl Creatinine 1.64 H (0.6-1.4) mg/dl POC Creatinine (0.6-1.3) mg/dl Est Cr Clr Drug Dosing Not Reportable Est GFR ( Amer) 42.3 ml/min Est GFR (Non-Af Amer) 36.5 ml/min BUN/Creatinine Ratio 17.7 (10-20) Glucose 184 H (70-99(Fasting)) mg/dl POC Glucose (other) (70-99) mg/dl Lactate (0.4-2.0) mmol/L Calcium 9.0 (8.6-10.3) mg/dl POC Ioniz Calcium [place] (1.12-1.32) mmol/l Magnesium 1.6 L (1.7-2.4) mg/dl Total Bilirubin 0.6 (0.2-1.0) mg/dl AST 26 (13-39) U/L ALT 15 (7-52) U/L Alkaline Phosphatase 64 (34-104) U/L Total Creatine Kinase 277 H (30-223) U/L Troponin I High Sens 23.5 H (0-20) pg/ml C-Reactive Protein < 0.50 (0-0.5) mg/dl Total Protein 7.5 (6.0-8.3) gm/dl Albumin 4.4 (3.4-5.0) gm/dl Globulin 3.1 (2.5-4.0) gm/dl Albumin/Globulin Ratio 1.4 (0.9-2) Procalcitonin (0-0.5) ng/ml TSH (0.300-4.500) uIu/ml Free T4 (0.61-1.60) ng/dl Urine Color Urine Appearance (Clear) Urine pH (4.5-7.5) Ur Specific [place] (1.000-1.030) Urine Protein (Negative) Urine Glucose (UA) (Negative) Urine Ketones (Negative) Urine Blood (Negative) Urine Nitrite (Negative) Urine Bilirubin (Negative) Urine Urobilinogen (Negative) Ur Leukocyte Esterase (Negative) Urine WBC (Auto) (0-5) /hpf Urine RBC (Auto) (0-4) /hpf U Hyaline Cast (Auto) (0-5) /lpf U Epithel Cells (Auto) (0-5) /lpf Urine Bacteria (Auto) (Negative) SARS-CoV-2, RNA, NAAT (NEGATIVE) 03/30/23 03/30/23 03/30/23 Range/Units 14:05 14:05 14:05 WBC (4.8-10.8) K/ul RBC (4.70-6.10) M/uL Hgb (14.0-18.0) g/dl POC Hgb (14.0-18.0) g/dl Hct (42.0-52.0) % POC Hct (42-52) % MCV (80.0-100.0) fL MCH (25.0-34.0) pg MCHC (32.0-36.0) g/dL RDW Std Deviation (36.4-46.3) fL RDW Coeff of Tramaine (11.5-14.5) % Plt Count (130-400) K/uL MPV (9.4-12.4) fL Immature Gran % (Auto) % Neut % (Auto) % Lymph % (Auto) % [place] % (Auto) % Eos % (Auto) % Baso % (Auto) % Neut # (Auto) (1.40-6.50) K/uL Lymph # (Auto) (1.2-3.4) K/uL [place] # (Auto) (0.11-0.59) K/uL Eos # (Auto) (0-0.50) K/uL Baso # (Auto) (0-0.2) K/uL Immature Gran # (Auto) (0.01-0.20) K/uL ESR (0-20) mm/hr PT (9.0-12.0) Seconds INR (0.9-1.1) APTT (21.0-31.0) Seconds PTT Ratio VBG pH 7.42 H (7.36-7.41) VBG pCO2 29 L (38-50) mmHg VBG pO2 81 mmHg VBG HCO3 19 mmol/L VBG O2 Saturation 97.9 % VBG Base Excess -4.4 mEq/L POC Sodium (135-144) mmol/L Sodium (136-145) mmol/L POC Potassium (3.3-5.0) mmol/L Potassium (3.5-5.1) mmol/L POC Chloride (101-112) mmol/L Chloride (98-107) mmol/L Carbon Dioxide (21-32) mmol/L POC Total CO2 (24-31) mmol/L Anion Gap (3-11) POC Anion Gap (16-25) mmol/L POC BUN (7-18) mg/dl BUN (6-23) mg/dl Creatinine (0.6-1.4) mg/dl POC Creatinine (0.6-1.3) mg/dl Est Cr Clr Drug Dosing Est GFR ( Amer) ml/min Est GFR (Non-Af Amer) ml/min BUN/Creatinine Ratio (10-20) Glucose (70-99(Fasting)) mg/dl POC Glucose (other) (70-99) mg/dl Lactate 2.3 H* (0.4-2.0) mmol/L Calcium (8.6-10.3) mg/dl POC Ioniz Calcium [place] (1.12-1.32) mmol/l Magnesium (1.7-2.4) mg/dl Total Bilirubin (0.2-1.0) mg/dl AST (13-39) U/L ALT (7-52) U/L Alkaline Phosphatase (34-104) U/L Total Creatine Kinase (30-223) U/L Troponin I High Sens (0-20) pg/ml C-Reactive Protein (0-0.5) mg/dl Total Protein (6.0-8.3) gm/dl Albumin (3.4-5.0) gm/dl Globulin (2.5-4.0) gm/dl Albumin/Globulin Ratio (0.9-2) Procalcitonin (0-0.5) ng/ml TSH 5.608 H (0.300-4.500) uIu/ml Free T4 1.06 (0.61-1.60) ng/dl Urine Color Urine Appearance (Clear) Urine pH (4.5-7.5) Ur Specific [place] (1.000-1.030) Urine Protein (Negative) Urine Glucose (UA) (Negative) Urine Ketones (Negative) Urine Blood (Negative) Urine Nitrite (Negative) Urine Bilirubin (Negative) Urine Urobilinogen (Negative) Ur Leukocyte Esterase (Negative) Urine WBC (Auto) (0-5) /hpf Urine RBC (Auto) (0-4) /hpf U Hyaline Cast (Auto) (0-5) /lpf U Epithel Cells (Auto) (0-5) /lpf Urine Bacteria (Auto) (Negative) SARS-CoV-2, RNA, NAAT (NEGATIVE) 03/30/23 03/30/23 03/30/23 Range/Units 14:05 14:05 14:05 WBC (4.8-10.8) K/ul RBC (4.70-6.10) M/uL Hgb (14.0-18.0) g/dl POC Hgb 10.2 L (14.0-18.0) g/dl Hct (42.0-52.0) % POC Hct 30 L (42-52) % MCV (80.0-100.0) fL MCH (25.0-34.0) pg MCHC (32.0-36.0) g/dL RDW Std Deviation (36.4-46.3) fL RDW Coeff of Tramaine (11.5-14.5) % Plt Count (130-400) K/uL MPV (9.4-12.4) fL Immature Gran % (Auto) % Neut % (Auto) % Lymph % (Auto) % [place] % (Auto) % Eos % (Auto) % Baso % (Auto) % Neut # (Auto) (1.40-6.50) K/uL Lymph # (Auto) (1.2-3.4) K/uL [place] # (Auto) (0.11-0.59) K/uL Eos # (Auto) (0-0.50) K/uL Baso # (Auto) (0-0.2) K/uL Immature Gran # (Auto) (0.01-0.20) K/uL ESR 17 (0-20) mm/hr PT (9.0-12.0) Seconds INR (0.9-1.1) APTT (21.0-31.0) Seconds PTT Ratio VBG pH (7.36-7.41) VBG pCO2 (38-50) mmHg VBG pO2 mmHg VBG HCO3 mmol/L VBG O2 Saturation % VBG Base Excess mEq/L POC Sodium 139 (135-144) mmol/L Sodium (136-145) mmol/L POC Potassium 5.0 (3.3-5.0) mmol/L Potassium (3.5-5.1) mmol/L POC Chloride 108 (101-112) mmol/L Chloride (98-107) mmol/L Carbon Dioxide (21-32) mmol/L POC Total CO2 18 L (24-31) mmol/L Anion Gap (3-11) POC Anion Gap 19.0 (16-25) mmol/L POC BUN 28 H (7-18) mg/dl BUN (6-23) mg/dl Creatinine (0.6-1.4) mg/dl POC Creatinine 1.8 H (0.6-1.3) mg/dl Est Cr Clr Drug Dosing Est GFR ( Amer) ml/min Est GFR (Non-Af Amer) ml/min BUN/Creatinine Ratio (10-20) Glucose (70-99(Fasting)) mg/dl POC Glucose (other) 188 H (70-99) mg/dl Lactate (0.4-2.0) mmol/L Calcium (8.6-10.3) mg/dl POC Ioniz Calcium [place] 1.18 (1.12-1.32) mmol/l Magnesium (1.7-2.4) mg/dl Total Bilirubin (0.2-1.0) mg/dl AST (13-39) U/L ALT (7-52) U/L Alkaline Phosphatase (34-104) U/L Total Creatine Kinase (30-223) U/L Troponin I High Sens (0-20) pg/ml C-Reactive Protein (0-0.5) mg/dl Total Protein (6.0-8.3) gm/dl Albumin (3.4-5.0) gm/dl Globulin (2.5-4.0) gm/dl Albumin/Globulin Ratio (0.9-2) Procalcitonin < 0.05 (0-0.5) ng/ml TSH (0.300-4.500) uIu/ml Free T4 (0.61-1.60) ng/dl Urine Color Urine Appearance (Clear) Urine pH (4.5-7.5) Ur Specific [place] (1.000-1.030) Urine Protein (Negative) Urine Glucose (UA) (Negative) Urine Ketones (Negative) Urine Blood (Negative) Urine Nitrite (Negative) Urine Bilirubin (Negative) Urine Urobilinogen (Negative) Ur Leukocyte Esterase (Negative) Urine WBC (Auto) (0-5) /hpf Urine RBC (Auto) (0-4) /hpf U Hyaline Cast (Auto) (0-5) /lpf U Epithel Cells (Auto) (0-5) /lpf Urine Bacteria (Auto) (Negative) SARS-CoV-2, RNA, NAAT (NEGATIVE) 07/07/23 07/07/23 Range/Units 14:21 14:21 WBC (4.8-10.8) K/ul RBC (4.70-6.10) M/uL Hgb (14.0-18.0) g/dl POC Hgb (14.0-18.0) g/dl Hct (42.0-52.0) % POC Hct (42-52) % MCV (80.0-100.0) fL MCH (25.0-34.0) pg MCHC (32.0-36.0) g/dL RDW Std Deviation (36.4-46.3) fL RDW Coeff of Tramaine (11.5-14.5) % Plt Count (130-400) K/uL MPV (9.4-12.4) fL Immature Gran % (Auto) % Neut % (Auto) % Lymph % (Auto) % [place] % (Auto) % Eos % (Auto) % Baso % (Auto) % Neut # (Auto) (1.40-6.50) K/uL Lymph # (Auto) (1.2-3.4) K/uL [place] # (Auto) (0.11-0.59) K/uL Eos # (Auto) (0-0.50) K/uL Baso # (Auto) (0-0.2) K/uL Immature Gran # (Auto) (0.01-0.20) K/uL ESR (0-20) mm/hr PT (9.0-12.0) Seconds INR (0.9-1.1) APTT (21.0-31.0) Seconds PTT Ratio VBG pH (7.36-7.41) VBG pCO2 (38-50) mmHg VBG pO2 mmHg VBG HCO3 mmol/L VBG O2 Saturation % VBG Base Excess mEq/L POC Sodium (135-144) mmol/L Sodium (136-145) mmol/L POC Potassium (3.3-5.0) mmol/L Potassium (3.5-5.1) mmol/L POC Chloride (101-112) mmol/L Chloride (98-107) mmol/L Carbon Dioxide (21-32) mmol/L POC Total CO2 (24-31) mmol/L Anion Gap (3-11) POC Anion Gap (16-25) mmol/L POC BUN (7-18) mg/dl BUN (6-23) mg/dl Creatinine (0.6-1.4) mg/dl POC Creatinine (0.6-1.3) mg/dl Est Cr Clr Drug Dosing Est GFR ( Amer) ml/min Est GFR (Non-Af Amer) ml/min BUN/Creatinine Ratio (10-20) Glucose (70-99(Fasting)) mg/dl POC Glucose (other) (70-99) mg/dl Lactate (0.4-2.0) mmol/L Calcium (8.6-10.3) mg/dl POC Ioniz Calcium [place] (1.12-1.32) mmol/l Magnesium (1.7-2.4) mg/dl Total Bilirubin (0.2-1.0) mg/dl AST (13-39) U/L ALT (7-52) U/L Alkaline Phosphatase (34-104) U/L Total Creatine Kinase (30-223) U/L Troponin I High Sens (0-20) pg/ml C-Reactive Protein (0-0.5) mg/dl Total Protein (6.0-8.3) gm/dl Albumin (3.4-5.0) gm/dl Globulin (2.5-4.0) gm/dl Albumin/Globulin Ratio (0.9-2) Procalcitonin (0-0.5) ng/ml TSH (0.300-4.500) uIu/ml Free T4 (0.61-1.60) ng/dl Urine Color Yellow Urine Appearance Clear (Clear) Urine pH 6.0 (4.5-7.5) Ur Specific [place] 1.015 (1.000-1.030) Urine Protein 1+ H (Negative) Urine Glucose (UA) Negative (Negative) Urine Ketones Negative (Negative) Urine Blood Negative (Negative) Urine Nitrite Negative (Negative) Urine Bilirubin Negative (Negative) Urine Urobilinogen Negative (Negative) Ur Leukocyte Esterase Negative (Negative) Urine WBC (Auto) 1-5 (0-5) /hpf Urine RBC (Auto) 0-4 (0-4) /hpf U Hyaline Cast (Auto) 1-5 (0-5) /lpf U Epithel Cells (Auto) 5-10 H (0-5) /lpf Urine Bacteria (Auto) Negative (Negative) SARS-CoV-2, RNA, NAAT NEGATIVE (NEGATIVE) Administered Medications Aspirin (Aspirin 81 Mg Ectab) 81 mg PO DAILY [facility] Stop: 04/29/23 15:59 Last Admin: 03/30/23 15:58 Dose: 81 mg Documented By: YOLI Norepinephrine Bitartrate (Levophed/D5w) 4 mg in 250 mls @ 17.25 mls/hr IV .[id number] DIMITRI; Protocol Stop: 04/29/23 17:14 Last Titration: 03/30/23 19:24 Dose: 0.05 mcg/kg/min, 17.3 mls/hr Documented By: LÓPEZ Co-signed By: ROBERTO Admin: 03/30/23 17:20 Dose: 0.05 mcg/kg/min, 17.3 mls/hr Documented By: YOLI Co-signed By: SALEEM Magnesium Sulfate/Dextrose (Magnesium Sulfate / D5w) 1 gm in 100 mls @ 50 mls/hr IV ONE ONE Stop: 03/30/23 19:59 Last Admin: 03/30/23 18:08 Dose: 50 mls/hr Documented By: YOLI Magnesium Sulfate/Dextrose (Magnesium Sulfate / D5w) 1 gm in 100 mls @ 50 mls/hr IV Q2H [facility] Stop: 03/30/23 22:29 Last Admin: 03/30/23 19:30 Dose: 50 mls/hr Documented By: LÓPEZ Parenteral Electrolytes (Plasma-Lyte A Ph 7.4) 1,000 mls @ 125 mls/hr IV .Q8H DIMITRI Stop: 04/29/23 19:16 Last Admin: 03/30/23 19:31 Dose: 125 mls/hr Documented By: LÓPEZ Discontinued Medications Sodium Chloride (Nss 1000ml) 1,000 mls @ 999 mls/hr IV .Q1H1M DIMITRI Stop: 03/30/23 15:00 Last Infusion: 03/30/23 15:04 Dose: 0 mls/hr Documented By: Admin: 03/30/23 14:00 Dose: 999 mls/hr Documented By: RAINA Ceftriaxone Sodium (Rocephin) 2,000 mg in 70 mls @ 140 mls/hr IV NOW [facility] Stop: 03/30/23 15:07 Last Infusion: 03/30/23 15:18 Dose: 0 mls/hr Documented By: Admin: 03/30/23 14:57 Dose: 140 mls/hr Documented By: YOLI Sodium Chloride (Nss 1000ml) 1,000 mls @ 999 mls/hr IV .Q1H1M ONE Stop: 03/30/23 15:39 Last Infusion: 03/30/23 16:39 Dose: 0 mls/hr Documented By: Admin: 03/30/23 15:10 Dose: 999 mls/hr Documented By: YOLI Magnesium Sulfate/Dextrose (Magnesium Sulfate / D5w) 1 gm in 100 mls @ 100 mls/hr IV NOW STA Stop: 03/30/23 15:59 Last Infusion: 03/30/23 16:11 Dose: 0 mls/hr Documented By: Admin: 03/30/23 15:10 Dose: 100 mls/hr Documented By: YOLI Acetaminophen (Ofirmev) 1,000 mg in 100 mls @ 400 mls/hr IV NOW STA Stop: 03/30/23 15:16 Last Infusion: 03/30/23 15:32 Dose: 0 mls/hr Documented By: Admin: 03/30/23 15:10 Dose: 400 mls/hr Documented By: YOLI Parenteral Electrolytes (Plasma-Lyte A Ph 7.4) 1,000 mls @ 999 mls/hr IV .Q1H1M ONE Stop: 03/30/23 17:37 Last Admin: 03/30/23 16:48 Dose: 999 mls/hr Documented By: YOLI Methylprednisolone 125 mg/ (Syringe) 2 mls @ 1.5 mls/min IV ONE STA Stop: 03/30/23 18:39 Last Admin: 03/30/23 19:29 Dose: 1.5 mls/min Documented By: LÓPEZ Ioversol (Optiray 320 125ml) 95 ml IV ONCE ONE Stop: 03/30/23 17:55 Last Admin: 03/30/23 17:55 Dose: 95 ml Documented By: KALYANI Imaging Data Attestation: I personally reviewed and interpreted this imaging study as follows: My Impression: 1 view chest x-ray was obtained in the emergency department. There was scarring at the left base otherwise no acute process was noted. Final report below. CT of the brain was obtained in the emergency department. My interpretation is no intracranial hemorrhage or mass effect, final report below. Radiologist's Impression: Chest X-Ray 03/30/23 13:52 XR chest 1V portable CLINICAL HISTORY: weakness COMPARISON STUDY: Chest CT February 16, 2021. Chest radiograph September 04, 2022. FINDINGS: Left subclavian pacer is in place. There is an intracanalicular device. No pneumothorax is present. A trace left pleural effusion is noted. There is mild left basilar opacity. Cardiomediastinal silhouette is normal. There is mild interstitial thickening. Emphysema is present. Skinfolds project over the chest. IMPRESSION: 1. Trace left pleural effusion. Mild left basilar opacity which favors atelectasis. 2. Subtle interstitial thickening. This may reflect mild pulmonary edema. 3. Emphysema. ACT 112: Negative or not required by law. Electronically signed by: Christophe Echeverria M.D. 03/30/2023 2:[address] 03/30/23 13:52 CT SCAN OF THE BRAIN WITHOUT IV CONTRAST CLINICAL HISTORY: Change in mental status. "Found down". COMPARISON STUDY: No priors. TECHNIQUE: Unenhanced axial CT scan of the brain is performed from the vertex to the skull base. A dose lowering technique was utilized adhering to the principles of ALARA. FINDINGS: Brain parenchyma: There is age-related involutional change noting moderate s ubcortical and periventricular microangiopathic disease. There is no hemorrhage, mass effect, or evidence of acute territorial ischemia by CT criteria. Bass- white matter differentiation is preserved. No extra-axial fluid collection is seen. Ventricles, sulci, cisterns: Prominent secondary to involutional change. Intracranial vasculature: There is atherosclerotic calcification of the cavernous carotid and vertebral arteries. Calvarium: The skeletal structures are osteopenic. No depressed calvarial fracture is seen. Sinuses and mastoids: Air-fluid level in the left maxillary antrum. Trace fluid is also seen in the sphenoid sinuses. The remaining visualized paranasal sinuses are clear. There is a left mastoid effusion. The right mastoid air cells are well pneumatized. Orbits: The bony orbits are grossly intact. There are bilateral ocular lens implants. IMPRESSION: There is no hemorrhage, mass effect, or evidence of acute territorial ischemia by CT criteria. ACT 112: Negative or not required by law. Electronically signed by: Jose Salazar M.D. 03/30/2023 2:[address] 03/30/23 14:03 CT SCAN OF THE CERVICAL SPINE CLINICAL HISTORY: "Found down". Trauma. Change in mental status. COMPARISON STUDY: No priors. TECHNIQUE: CT scan of the cervical spine is performed from the skull base to the upper thoracic spine. Images are reviewed in the axial, sagittal, and coronal planes. IV contrast was not administered for this examination. A dose lowering technique was utilized adhering to the principles of ALARA. CT DOSE: 1155.95 mGy.cm FINDINGS: Skeletal structures: The skeletal structures are osteopenic. There is no evidenc e of fracture or subluxation involving the cervical spine. Vertebral body height is maintained. There is minimal anterolisthesis at C4-C5. Alignment is otherwise preserved. There is straightening of the cervical lordosis. Anterior osteophytes are seen throughout. The odontoid process and lateral masses are intact. The atlantoaxial articulation is preserved noting productive degenerative change. The spinous processes appear intact. There is moderate multilevel cervical spondylosis. Uncovertebral and facet arthropathy contribute to neural foraminal narrowing at several levels. Intervertebral discs: There is moderate to severe disc space narrowing at C5-C6 and C6-C7 with associated endplate sclerosis. Central canal: Posterior disc osteophyte complexes at C3-C4, C5-C6, and C6-C7 may contribute to multilevel acquired compromise of the central canal. Soft tissues: The prevertebral and paraspinous soft tissues are within normal limits. There is atherosclerotic calcification of the carotid bulbs. A calcified sialolith is seen in the right parotid gland. Calvarium: The visualized calvarium at the skull base appears intact. Brain parenchyma: Partially visualized brain parenchyma at the skull base is within normal limits. Sinuses and mastoids: There is an air-fluid level in the left maxillary sinus. Trace fluid is also noted in the sphenoid sinuses. There is a small left mastoid effusion. The right mastoid air cells are well pneumatized. Lung apices: Clear as visualized. IMPRESSION: 1. There is no evidence of fracture or subluxation involving the cervical spine. 2. Osteopenia and spondylotic change as above. ACT 112: Negative or not required by law. Electronically signed by: Jose Salazar M.D. 03/30/2023 2:23 PM Carotid Doppler Study 03/30/23 15:19 ULTRASOUND OF THE CAROTID ARTERIES CLINICAL HISTORY: Strokelike symptoms.. COMPARISON STUDY: No priors. TECHNIQUE: Portable real-time, grayscale, and color Doppler sonography of the carotid arteries is performed. Images are reviewed in the transverse and longitudinal planes. FINDINGS: The carotid arteries are patent bilaterally and demonstrate antegrade flow. There is advanced atherosclerotic plaque seen bilaterally. Normal doppler arter ial waveforms are seen throughout. Bidirectional flow suggested in the left internal carotid artery. Velocity measurements are listed below. Common carotid peak systolic velocity (cm/sec): RIGHT: 93 LEFT: 70 ICA proximal peak systolic velocity (cm/sec): RIGHT: 225 LEFT: 348 ICA mid peak systolic velocity (cm/sec): RIGHT: 170 LEFT: 375 ICA distal peak systolic velocity (cm/sec): RIGHT: 153 LEFT: 403 ICA/CC peak systolic ratio: RIGHT: 2.4 LEFT: 6.5 Antegrade flow was shown in the vertebral arteries. The external carotid arteries are patent. IMPRESSION: 1. Atherosclerotic plaque with evidence of 50-69% stenosis of the proximal right internal carotid artery by velocity criteria. 2. There is evidence of greater than 75% stenosis of the proximal left internal carotid artery. 3. Antegrade flow is shown in the vertebral arteries. ACT 112: Negative or not required by law. Electronically signed by: Jose Salazar M.D. 03/30/2023 5:09 PM Discharge Plan Visit Data Chief Complaint: Unresponsive Stated Complaint: UNRESPONSIVE ED Provider: Diaz Fry Discharge Problem: Heat stroke, AMS (altered mental status), Hypomagnesemia, MARIE (acute kidney inj ury), Paroxysmal SVT (supraventricular tachycardia) Patient Disposition: Admitted As Inpatient Discharge Instructions Interventions: ED Discharge Assessment Last Done: 03/30/23 17:39 Heat stroke Qualifiers: Encounter type: initial encounter Qualified Code(s): T67.01XA - Heatstroke and sunstroke, initial encounter AMS (altered mental status) Qualifiers: Altered mental status type: unspecified Qualified Code(s): R41.82 - Altered mental status, unspecified
[2023-03-30 14:17] LABS: Base Excess VBG -4.4 mEq/L; HCO3 VBG 19 mmol/L; Oxygen Saturation VBG 97.9 %; PCO2 VBG 29 mmHg (38-50); PO2 VBG 81 mmHg; pH VBG 7.42 (7.36-7.41)
[2023-03-30 14:20] LABS: iSTAT Creatinine 1.8 mg/dl (0.6-1.3); iSTAT Hemoglobin 10.2 g/dl (14.0-18.0); iSTAT Ionized Calcium 1.18 mmol/l (1.12-1.32)
--- NOTE | 2023-03-30 14:25 | CT Scan Report ---
CT SCAN OF THE CERVICAL SPINE CLINICAL HISTORY: "Found down". Trauma. Change in mental status. COMPARISON STUDY: No priors. TECHNIQUE: CT scan of the cervical spine is performed from the skull base to the upper thoracic spine . Images are reviewed in the axial, sagittal, and coronal planes. IV contrast was not administered fo r this examination. A dose lowering technique was utilized adhering to the principles of ALARA. CT DOSE: 1155.95 mGy.cm FINDINGS: Skeletal structures: The skeletal structures are osteopenic. There is no evidence of fracture or subl uxation involving the cervical spine. Vertebral body height is maintained. There is minimal anteroli sthesis at C4-C5. Alignment is otherwise preserved. There is straightening of the cervical lordosis. Anterior osteophytes are seen throughout. The odontoid process and lateral masses are intact. The ayleen antoaxial articulation is preserved noting productive degenerative change. The spinous processes appe ar intact. There is moderate multilevel cervical spondylosis. Uncovertebral and facet arthropathy con tribute to neural foraminal narrowing at several levels. Intervertebral discs: There is moderate to severe disc space narrowing at C5-C6 and C6-C7 with associ ated endplate sclerosis. Central canal: Posterior disc osteophyte complexes at C3-C4, C5-C6, and C6-C7 may contribute to multi level acquired compromise of the central canal. Soft tissues: The prevertebral and paraspinous soft tissues are within normal limits. There is athero sclerotic calcification of the carotid bulbs. A calcified sialolith is seen in the right parotid glan d. Calvarium: The visualized calvarium at the skull base appears intact. Brain parenchyma: Partially visualized brain parenchyma at the skull base is within normal limits. Sinuses and mastoids: There is an air-fluid level in the left maxillary sinus. Trace fluid is also no anatoly in the sphenoid sinuses. There is a small left mastoid effusion. The right mastoid air cells are well pneumatized. Lung apices: Clear as visualized. IMPRESSION: 1. There is no evidence of fracture or subluxation involving the cervical spine. 2. Osteopenia and spondylotic change as above. ACT 112: Negative or not required by law. Electronically signed by: Jose Salazar M.D. 03/30/2023 2:23 PM
--- NOTE | 2023-03-30 14:27 | CT Scan Report ---
CT SCAN OF THE BRAIN WITHOUT IV CONTRAST CLINICAL HISTORY: Change in mental status. "Found down". COMPARISON STUDY: No priors. TECHNIQUE: Unenhanced axial CT scan of the brain is performed from the vertex to the skull base. A do se lowering technique was utilized adhering to the principles of ALARA. FINDINGS: Brain parenchyma: There is age-related involutional change noting moderate subcortical and periventri cular microangiopathic disease. There is no hemorrhage, mass effect, or evidence of acute territorial ischemia by CT criteria. Bass-white matter differentiation is preserved. No extra-axial fluid collec tion is seen. Ventricles, sulci, cisterns: Prominent secondary to involutional change. Intracranial vasculature: There is atherosclerotic calcification of the cavernous carotid and vertebr al arteries. Calvarium: The skeletal structures are osteopenic. No depressed calvarial fracture is seen. Sinuses and mastoids: Air-fluid level in the left maxillary antrum. Trace fluid is also seen in the s phenoid sinuses. The remaining visualized paranasal sinuses are clear. There is a left mastoid effusi on. The right mastoid air cells are well pneumatized. Orbits: The bony orbits are grossly intact. There are bilateral ocular lens implants. IMPRESSION: There is no hemorrhage, mass effect, or evidence of acute territorial ischemia by CT olga lawson. ACT 112: Negative or not required by law. Electronically signed by: Jose Salazar M.D. 03/30/2023 2:26 PM
[2023-03-30 14:29] LABS: Basophils # (auto) 0.07 K/uL (0-0.2); Eosinophils # (auto) 0.04 K/uL (0-0.50); Eosinophils % (auto) 0.6 %; Hematocrit (blood only) 28.5 % (42.0-52.0); Hemoglobin 9.7 g/dl (14.0-18.0); Immature Granulocytes # (auto) 0.05 K/uL (0.01-0.20); Immature Granulocytes % (auto) 0.7 %; Lymphocytes # (auto) 1.41 K/uL (1.2-3.4); Lymphocytes % (auto) 19.9 %; Mean Corpuscular Hemoglobin 32.4 pg (25.0-34.0); Mean Corpuscular Volume 95.3 fL (80.0-100.0); Mean Platelet Volume 10.6 fL (9.4-12.4); Monocytes # (auto) 0.18 K/uL (0.11-0.59); Monocytes % (auto) 2.5 %; Neutrophils # (auto) 5.32 K/uL (1.40-6.50); Neutrophils % (auto) 75.3 %; Platelet Count 128 K/uL (130-400); RDW Coefficient of Variation 15.4 % (11.5-14.5); RDW Standard Deviation 53.5 fL (36.4-46.3); Red Blood Count 2.99 M/uL (4.70-6.10); White Blood Count 7.07 K/ul (4.8-10.8)
[2023-03-30 14:38] LABS: Alanine Aminotransferase 15 U/L (7-52); Albumin Globulin Ratio 1.4 (0.9-2); Albumin Level 4.4 gm/dl (3.4-5.0); Alkaline Phosphatase 64 U/L (34-104); Anion Gap 10 (3-11); Aspartate Aminotransferase 26 U/L (13-39); BUN Creatinine Ratio 17.7 (10-20); Bilirubin,Total 0.6 mg/dl (0.2-1.0); Blood Urea Nitrogen 29 mg/dl (6-23); Carbon Dioxide 19 mmol/L (21-32); Chloride 108 mmol/L (98-107); Creatine Kinase 277 U/L (30-223); Est GFR (African American) 42.3 ml/min; Est GFR (Non-African American) 36.5 ml/min; Globulin 3.1 gm/dl (2.5-4.0); Glucose 184 mg/dl (70-99(Fasting)); Magnesium 1.6 mg/dl (1.7-2.4); Potassium 4.9 mmol/L (3.5-5.1); Sodium 137 mmol/L (136-145); Total Protein 7.5 gm/dl (6.0-8.3)
[2023-03-30] MEDS ORDERED: cefTRIAXone SODIUM 2,000 MG/70 ML BAG IV STA (14:38)
[2023-03-30] MEDS ORDERED: SODIUM CHLORIDE 0.9% 1000ML 1,000 ML IV ONE (14:39)
[2023-03-30 14:44] LABS: Troponin I High Sensitivity 23.5 pg/ml (0-20)
[2023-03-30 14:51] LABS: Appearance Urine Clear (Clear); Bacteria Urine Automated Negative (Negative); Bilirubin Urine Negative (Negative); Blood Urine Negative (Negative); Color Urine Yellow; Glucose Urine UA Negative (Negative); Ketones Urine Negative (Negative); Leukocyte Esterase Urine Negative (Negative); Nitrite Urine Negative (Negative); Protein Urine 1+ (Negative); RBC Urine Automated 0-4 /hpf (0-4); Specific Gravity Urine 1.015 (1.000-1.030); Urobilinogen Urine Negative (Negative)
[2023-03-30 14:51] LABS: INR 1.1 (0.9-1.1); Partial Thromboplastin Ratio 0.8; Partial Thromboplastin Time 23.5 Seconds (21.0-31.0); Prothrombin Time 11.6 Seconds (9.0-12.0)
[2023-03-30 14:53] LABS: Thyroid Stimulating Hormone 5.608 uIu/ml (0.300-4.500)
--- NOTE | 2023-03-30 14:57 | XRay Report ---
XR chest 1V portable CLINICAL HISTORY: weakness COMPARISON STUDY: Chest CT February 16, 2021. Chest radiograph September 04, 2022. FINDINGS: Left subclavian pacer is in place. There is an intracanalicular device. No pneumothorax is present. A trace left pleural effusion is noted. There is mild left basilar opacity. Cardiomediastina l silhouette is normal. There is mild interstitial thickening. Emphysema is present. Skinfolds projec t over the chest. IMPRESSION: 1. Trace left pleural effusion. Mild left basilar opacity which favors atelectasis. 2. Subtle interstitial thickening. This may reflect mild pulmonary edema. 3. Emphysema. ACT 112: Negative or not required by law. Electronically signed by: Christophe Echeverria M.D. 03/30/2023 2:55 PM
--- NOTE | 2023-03-30 14:58 | History & Physical Report ---
Date of Service March 30, 2023 Assessment & Plan (1) Unresponsive episode: Plan: Fever/hyperthermia Patient found down in the yard with temperature of 105 Differential includes CVA and SVT leading to syncope and subsequent heatstroke while lying in the sun versus primary heatstroke. No leukocytosis, no neutrophilic expansion or left shift Temperature 38.5 on arrival Hypotensive 9451 on arrival, improving with second liter of NSS running at time of assessment Hemoglobin 9.7, last 10.3. MCV normal. VBG 7.42/PCO2 29/PO2 81/HCO3 19. Mild respiratory alkalosis. Baseline creatinine 1.261.53, admitting creatinine 1.64 Lactate 2.3 Magnesium 1.6 Repeat tickborne serology pending. No bull's-eye rash, patient does have a blanching erythematous rash on the right aspect of both extremities unclear what position he was laying in while in the sun CK 277 High-sensitivity troponin 23 As patient was found down will treat broadly until cardiogenic, neurogenic, infectious, and exposure etiologies are further assessed. Patient has received empiric Rocephin, will defer additional coverage in absence of leukocytosis or other infectious symptoms. Admitting EKG: Sinus tachycardia, nonspecific ST change and QTc 407. No territorial ST segment/T wave changes. Suspect demand ischemia Troponin trend pending, echo pending From interrogation pending, per report appears to have had a narrow complex tachycardia? SVT around 130 Is on SSRI, however does not have clonus and is now mentating normally with initial treatment. Low suspicion for serotonin syndrome but will hold sertraline Rhabdomyolysis CK2 77 in the setting of laying on the ground. Fluids, trend renal function daily. Can repeat one CK tomorrow, as long as this remains either downtrending or less than 1000 and defer additional repeat Left-sided vision loss Patient reports new complete left-sided vision loss Oral collateral collected from neighbor/friend who notes that he was completely normal yesterday with no fevers, chills, sweats infectious symptoms or deficits Patient reports a complete loss of vision in all quadrants and including light in left eye which is new since arriving in the hospital. - CThead: No acute findings, no evidence of acute stroke CTC-spine: No acute findings, no fracture or subluxation As patient was found down is an unclear last known normal if this was stroke TNKase is not indicated due to duration of onset and timing of presentation. Known carotid stenosis on the left side, MRI and MRA angio with neck ultrasound pending - Aspirin ordered. Denies any history of bleeding problems. Hx sick sinus syndrome s/p pacemaker placement 12/2020 Patient with pacemaker in place. At last interrogation 11/2022 was with atrial pacing and no arrhythmias. Repeat interrogation pending Troponin is noted Type II DM Admitting BSG 184 On basal bolus at home, basal 12-22 units and aspart with meals Was not hypoglycemic on arrival We will continue weight-based basal bolus while inpatient Pharmacy consulted for assistance with glycemic management Hypertension Lisinopril held with MARIE BPH with LUTS - Bladder scan every shift, straight cath as needed, Meneses if recurrent cath required UA bland on arrival History of carotid stenosis 70% left ICA on the left side followed as outpatient. No history of CVA Is with left vision loss as above Hypothyroidism Continue Synthroid TSH pending COPD Last PFTs with mild obstructive disease Continue Breo Albuterol as needed -SPO2 goal 89%, do not hyper oxygenate Postlaminectomy syndrome with claudication S/p spinal cord stimulator 01/2022 No spinal tenderness on exam No acute management at this time DVT prophylaxis: Lovenox starting 03/31, SCDs Diet: Heart healthy Disposition: PCU CODE STATUS: DNR/DNI (2) Uncontrolled type 2 diabetes mellitus with complication, with long-term current use of insulin: (3) Heat stroke: (4) Paroxysmal SVT (supraventricular tachycardia): (5) Controlled type 2 diabetes mellitus with diabetic neuropathy, with long-term current use of insulin: (6) BPH with obstruction/lower urinary tract symptoms: (7) Tachycardia-bradycardia: (8) Post laminectomy syndrome: History of Present Illness Primary Care Provider: Napoleon Herron DO Torres is an 87-year-old male past medical history of chronic anemia, type II DM, chronic pain, diabetic neuropathy, CKD 3, COPD, postlaminectomy syndrome with R heart failure with last echo 12/2020 showing normal RV SF, normal RVSP, no MR/mild TR/normal AV was found down in the yard and who was hyperthermic to 105 on route, 38.5 in the ER, and he was hypotensive and tachycardic on arrival to the ER. Torres is seen at the bedside with friend present. He reports he remembers weeding in his yard this morning and was in normal state of health yesterday and then remembers waking up in the hospital. Per strangers with him he has had progressive weakness and difficulty caring for himself and has no family in the area, office of aging has been contacted. He notes he does see Torres most days and torres was in a completely normal state of health yesterday with no neurologic deficits, no fevers, chills, sweats, no cough and had not been complaining of any infectious symptoms. Torres reports he has no chest pain, no chest pressure, is not feeling feverish or chilly, and does not have any pain at bedside assessment but is very thirsty. He notes he thinks he felt normal when he woke up this morning, does not remember much other than weeding in the garden. He thinks he took his medications this morning but is not sure he has no pain when flexing or extending his head, denies photosensitivity/phono sensitivity but does have a mild headache in the back of his head. He notes that he has a complete loss of vision in his left eye which is new, he does not know when this started other than that it was not present when he went to bed last night. He has a history of pacemaker placement, but is not sure why he has this. Notes it was probably related to his heart or breathing. He denies a history of heart failure or heart attacks. He has history of diabetes and manages his own insulin which he thinks he took this morning. Reports he would not want heroic measures or resuscitation in the event of cardiac arrest, confirms DNR/DNI Medical History: Reviewed Medications: Reviewed Surgical History: Reviewed Family history: Reviewed Allergies: Reviewed Social History: Reviewed Code Status: DNR/DNI Allergies Allergy/AdvReac Type Severity Reaction Status Date / Time No Known Allergies Allergy Verified 01/26/23 09:34 Home Medications Medication Instructions Recorded Confirmed Type cyanocobalamin (vitamin B-12) 1,000 mcg PO QAM 11/30/18 01/26/23 History 1,000 mcg tablet (Vitamin B-12) esomeprazole magnesium 40 mg 40 mg PO QAM 11/30/18 01/26/23 History capsule,delayed release (Nexium) flash glucose sensor (FreeStyle 04/20/20 01/26/23 History Kvng 14 Day Sensor kit) cholecalciferol (vitamin D3) 25 25 mcg PO QAM 01/11/21 01/26/23 History mcg (1,000 unit) capsule (Vitamin D3) insulin aspart U-100 100 unit/mL 35 unit (0.35 mL) subcut DAILY 90 02/09/21 01/26/23 Rx (3 mL) subcutaneous pen (Novolog days #31.5 mL FlexPen U-100 Insulin aspart) pen needle, diabetic 32 gauge x #400 ea 07/14/22 01/26/23 Rx 1/" lisinopril 5 mg tablet 5 mg PO QAM #90 tabs 08/08/22 01/26/23 Rx levothyroxine 112 mcg tablet See Rx Instructions .Route 08/22/22 01/26/23 Rx .COMPLEX #90 tabs insulin glargine U-300 conc 300 12 - 22 unit (0.04 - 0.0733 mL) 09/20/22 01/26/23 Rx unit/mL (1.5 mL) subcutaneous pen subcut HS #4.5 mL (Toujeo SoloStar U-300 Insulin) sertraline 50 mg tablet See Rx Instructions .Route 12/07/22 01/26/23 Rx .COMPLEX #30 tabs albuterol sulfate 90 mcg/actuation 2 inh inhalation QID PRN shortness 01/23/23 01/26/23 Rx aerosol inhaler of breath or wheezing #8.5 grams fluticasone furoate 100 1 inh inhalation DAILY #60 ea 01/23/23 01/26/23 Rx mcg-vilanterol 25 mcg/dose inhalation powder (Breo Ellipta) Past Med/Surg History Medical History BPH with obstruction/lower urinary tract symptoms Carotid artery stenosis Chronic anemia Baseline hgb 10s per chart review Chronic obstructive pulmonary disease Chronic pain syndrome CKD (chronic kidney disease), stage III Diabetes mellitus, type 2 IDDM GERD (gastroesophageal reflux disease) Controlled Hearing deficit B/L [place] History of basal cell carcinoma S/P excision History of colon cancer Approximately 2000- s/p partial colon resection + chemo History of SCC (squamous cell carcinoma) of skin Hypothyroidism Pacemaker Dual chamber PPM, 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 [employer]. Follows with [facility] (Pacer check 05/15/22 per EP visit note) Post laminectomy syndrome Spinal stenosis Surgical History History of back surgery X2 ([facility]) History of basal cell carcinoma (BCC) excision History of colon resection History of colonoscopy History of esophagogastroduodenoscopy (EGD) History of hernia repair X 5 History of nasal septoplasty bilateral inferior turbinate reduction-03/29/18 History of phacoemulsification of cataract of left eye with intraocular lens implantation History of right cataract surgery History of squamous cell carcinoma excision History of tooth extraction Hx of cardiac pacemaker Implanted December 2020 Hx of left cataract extraction Spinal cord stimulator status inserted 01/2022 Family History Unknown Heart disease No family history of bleeding disorder Brother Hemochromatosis Brother Myocardial infarction Denies family history of Ovarian cancer Prostate cancer Breast cancer Colorectal cancer Social History Smoking Status: Unknown if ever smoked Tobacco Type: Cigarettes Age Started Using Tobacco: 16; Age Quit Using Tobacco: 38; packs per day: 1; Cigarettes Per Day: Quit 45-50 years ago; Second Hand Exposure: No; Do You Dip or Chew Tobacco: No; Hx Alcohol Use: No Hx Substance Use: No Preferred Language: Occitan Communication Ability: Effective Visual Impairment: Partially Limited Hearing Ability: Use of Hearing Aid Supply Aide Required: No Beliefs That Will Affect Care: None marital status: Current Living Situation: Spouse current occupational status: retired 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 Not oriented to place initially, reorients easily. Cooperative. HEENT: Atraumatic, normocephalic. No nuchal rigidity. Right eye reactive to light. Left eye not reactive to light, and patient reports he has no vision to confrontation or light in the left eye. Left bruit is present. Pulm: CTAB A&P. -wheezes, -rales, -rhonchi. Symmetrical chest rise. No increased work of breathing. No respiratory distress. Cardiac: RRR, -mrg. Radial pulses intact and symmetrical. Abdominal: Nontender, nondistended, soft. BS present. Extremities: Hot, dry. Patient has erythematous blanching rash on right aspect of both his right and left leg. Small blisters on right lateral hip now, no purulence or drainage. Sensation soft touch intact in hands and feet. No clonus Results & Data Results & Data Vital Signs (Past 12 Hours) Vital Signs Temp Pulse Pulse Resp BP BP Pulse Ox 03/30/23 14:30 120 H 25 H 94 03/30/23 14:20 39.4 C H 122 H 27 H 96/48 L 94 03/30/23 14:18 39.4 C H 114 H 26 H 94/51 L 98 03/30/23 14:46 38.5 C H 109 H 18 98/48 L 97 03/30/23 14:38 38.8 C H 03/30/23 13:50 40.5 C H 138 H 23 118/69 100 03/30/23 14:26 92 03/30/23 14:24 120 H 24 89 L 03/30/23 14:01 124 H O2 Del Method O2 Flow Rate 03/30/23 14:30 03/30/23 14:20 Nasal Cannula 2 03/30/23 14:18 Nasal Cannula 2 03/30/23 14:46 Nasal Cannula 2 03/30/23 14:38 03/30/23 13:50 Non-rebreather 15 03/30/23 14:26 Nasal Cannula 2 03/30/23 14:24 Room Air 03/30/23 14:01 PG Care Time/CCT Total # of Minutes Spent Total Time Spent with Patient: Total time spent is greater than 50% in coordination of care (as documented) at patient's floor/unit and/or counseling patient: Coding Level of Care Code 35530 INT INP/OBS CARE 3/75MIN Diagnoses Unresponsive episode R40.4 Uncontrolled type 2 diabetes mellitus with complication, with long-term current use of insulin E11.8; E11.65; Z79.4 Heat stroke T67.01XA Encounter type: initial encounter Paroxysmal SVT (supraventricular tachycardia) I47.1 Controlled type 2 diabetes mellitus with diabetic neuropathy, with long-term current use of insulin E11.40; Z79.4 BPH with obstruction/lower urinary tract symptoms N40.1; N13.8 Tachycardia-bradycardia I49.5 Post laminectomy syndrome M96.1 (3) Heat stroke Encounter type: initial encounter Qualified Code(s): T67.01XA - Heatstroke and sunstroke, initial encounter
[2023-03-30] MEDS ORDERED: MAGNESIUM SULFATE / D5W 1 GM/100 ML BAG IV STA (15:00)
[2023-03-30 15:01] LABS: C Reactive Protein < 0.50 mg/dl (0-0.5)
[2023-03-30] MEDS ORDERED: ACETAMINOPHEN 1,000 MG/100 ML VIAL IV STA (15:02)
[2023-03-30 15:29] LABS: T4 Free Thyroxine 1.06 ng/dl (0.61-1.60)
[2023-03-30] MEDS ORDERED: LABETALOL HCL IV 5 MG/ML 20ML IV PRN (15:53)
[2023-03-30] MEDS ORDERED: ASPIRIN 81 MG ECTAB PO SCH (16:00)
[2023-03-30] MEDS ORDERED: PLASMA-LYTE A 1,000 ML IV ONE (16:37)
[2023-03-30] MEDS ORDERED: methylPREDNISolone 1,000 MG in DEXTROSE 5% 250 ML IV STA (17:08)
--- NOTE | 2023-03-30 17:11 | Ultrasound Report ---
ULTRASOUND OF THE CAROTID ARTERIES CLINICAL HISTORY: Strokelike symptoms.. COMPARISON STUDY: No priors. TECHNIQUE: Portable real-time, grayscale, and color Doppler sonography of the carotid arteries is per formed. Images are reviewed in the transverse and longitudinal planes. FINDINGS: The carotid arteries are patent bilaterally and demonstrate antegrade flow. There is advanced atheros clerotic plaque seen bilaterally. Normal doppler arterial waveforms are seen throughout. Bidirectiona l flow suggested in the left internal carotid artery. Velocity measurements are listed below. Common carotid peak systolic velocity (cm/sec): RIGHT: 93 LEFT: 70 ICA proximal peak systolic velocity (cm/sec): RIGHT: 225 LEFT: 348 ICA mid peak systolic velocity (cm/sec): RIGHT: 170 LEFT: 375 ICA distal peak systolic velocity (cm/sec): RIGHT: 153 LEFT: 403 ICA/CC peak systolic ratio: RIGHT: 2.4 LEFT: 6.5 Antegrade flow was shown in the vertebral arteries. The external carotid arteries are patent. IMPRESSION: 1. Atherosclerotic plaque with evidence of 50-69% stenosis of the proximal right internal carotid art kurt by velocity criteria. 2. There is evidence of greater than 75% stenosis of the proximal left internal carotid artery. 3. Antegrade flow is shown in the vertebral arteries. ACT 112: Negative or not required by law. Electronically signed by: Jose Salazar M.D. 03/30/2023 5:09 PM
[2023-03-30] MEDS ORDERED: STAT IV Infusion **Titration per Protocol STA (17:12)
[2023-03-30] MEDS ORDERED: NOREPINEPHRINE/D5W 4 MG/250 ML PLCT IV SCH (17:15)
[2023-03-30] MEDS ORDERED: methylPREDNISolone 125 MG/2 ML VIAL IV STA (17:24)
[2023-03-30] MEDS ORDERED: OPTIRAY 320 125ml IV ONE (17:54)
[2023-03-30] MEDS ORDERED: MAGNESIUM SULFATE / D5W 1 GM/100 ML BAG IV ONE (18:00)
[2023-03-30 18:05] LABS: Lyme Ab IgM w/WB Rflx Negative (Negative)
[2023-03-30 18:24] LABS: Lyme Ab IgG w/WB Rflx Positive (Negative)
--- NOTE | 2023-03-30 18:28 | CT Scan Report ---
CT ANGIOGRAM OF THE BRAIN; CT ANGIOGRAM OF THE NECK CLINICAL HISTORY: Strokelike symptoms. COMPARISON STUDY: Unenhanced CT of the brain performed the same day 03/30/2023. Carotid artery ultraso und dated 03/30/2023. TECHNIQUE: Following the IV administration of 115 of Optiray 320, CT angiogram of the head and neck w as performed from the aortic arch to the vertex. Images are reviewed in the axial, sagittal, and guido nal planes. 3-D MIPS images are created and assessed. IV contrast was administered without complicati on. All measurements were calculated based on NASCET criteria. A dose lowering technique was utilize d adhering to the principles of ALARA. CT DOSE: 569.25 mGy.cm FINDINGS: Brain parenchyma: There is age-related involutional change noting moderate subcortical and periventri cular microcatheter pathic disease. There is no evidence of hemorrhage, mass effect, or acute territo rial ischemia noting angiographic phase technique. There is no evidence of enhancing mass lesion on t he angiogram phase images. The ventricles, sulci, and cisterns are normal in configuration. Bass-whit e matter differentiation is preserved. No extra-axial fluid collection is seen. Thoracic aorta: There is atherosclerotic calcification of the thoracic aorta. Visualized portions of the thoracic aorta are normal in caliber. The aortic arch demonstrates standard 3-vessel anatomy. Right carotid arterial system: The right common carotid artery is widely patent noting atheroscleroti c plaque and irregularity. There is advanced atherosclerotic plaque in the carotid bulb with approxim ately 50% focal stenosis at the origin the right internal carotid artery. The remainder of the right internal carotid artery is widely patent. There is complete thrombosis of the origin of the right ext ernal carotid artery with immediate reconstitution. Left carotid arterial system: The left common carotid artery is widely patent noting atherosclerotic plaque and irregularity. There is advanced atherosclerotic calcification carotid bulb with approximat cheryl 60% focal stenosis at the origin of the left internal carotid artery seen on axial image #232. Th e remainder of the left internal carotid artery is widely patent. There is high-grade focal stenosis at the origin of the left external carotid artery. The remainder of the vessel is patent. Vertebral arteries: The vertebral arteries are patent bilaterally and codominant. Subclavian arteries: Widely patent bilaterally. Intracranial vasculature: There is atherosclerotic calcification of the cavernous carotid arteries. T he [place] is developmentally complete. The internal carotid arteries are patent at the skul l base, as are the anterior and middle cerebral arteries bilaterally. The vertebrobasilar system and posterior cerebral arteries are widely patent. The vertebral arteries are codominant. There is no ane urysm, high-grade stenosis, or focal vessel cut off seen throughout the intracranial circulation. Jugular veins: Patent bilaterally. Dural sinuses: Patent. Lung apices: There is moderate emphysema. Parenchymal scarring is seen throughout the upper lobes. No airspace consolidation or pleural effusion is identified. Soft tissues: The visualized pharyngeal soft tissues are normal in appearance noting angiographic pha se technique. The oropharyngeal airway appears widely patent. A calcified sialolith is noted in the r ight parotid gland. The salivary and thyroid glands are otherwise normal in appearance. No cervical l ymphadenopathy is seen. Pacemaker leads are noted at the left thoracic inlet. Skeletal structures: The calvarium appears intact. The cervical spine is maintained noting multilevel spondylosis. No lytic or blastic lesion is seen. Orbits: The bony orbits are intact. Orbital contents are normal as visualized. Sinuses and mastoids: There is an air-fluid level in the left maxillary antrum. Trace fluid is also s een in the sphenoid sinuses. The remaining paranasal sinuses are clear. There is a left mastoid effus ion. There are right larger than left mastoid effusion. IMPRESSION: 1. There is no evidence of hemorrhage, mass effect, or acute territorial ischemia noting angiographic phase technique. 2. Unremarkable CT angiogram of the brain. 3. Advanced atherosclerotic plaque throughout the carotid arteries with approximately 60% focal steno sis of the origin of the left internal carotid artery and 50% focal stenosis at the origin of the rig ht internal carotid artery. 4. There is complete occlusion at the origin of the right external carotid artery with immediate sherry nstitution. 5. There is high-grade focal stenosis at the origin of the left external carotid artery. 5. The vertebral arteries are patent. 6. Emphysema. 7. Additional findings as above. ACT 112: Negative or not required by law. Electronically signed by: Jose Salazar M.D. 03/30/2023 6:25 PM
[2023-03-30] MEDS ORDERED: methylPREDNISolone 125 MG in SYRINGE 0 ML IV STA (18:38)
--- NOTE | 2023-03-30 19:07 | Critical Care Consultation ---
Date of Consultation March 30, 2023 Assessment & Plan (1) Unresponsive episode: (2) Heat stroke: (3) AMS (altered mental status): (4) MARIE (acute kidney injury): (5) Paroxysmal SVT (supraventricular tachycardia): (6) Chronic pain syndrome: (7) Diabetic peripheral neuropathy: (8) Hypertension: (9) Shock circulatory: Plan Reason Critically Ill: 87-year-old male was brought in to the hospital as he was found down in the yard. He was found to be hyperthermic 105 and hypotensive. In the ER he got bolus fluid but was still hypotensive and sent to the ICU for vasopressor support Neuro - [facility] ICU: Negative --Acute left-sided vision loss We will try to get an ophthalmology consult Follow-up CTA head and neck On physical exam there is no neurological deficit except for vision loss. Patient unable to do MRI of the brain --Fever of 105 Chest x-ray is clean, unlikely to be influenza Heatstroke is a possibility given that he was down in the heat for the long time Patient is also taking sertraline which is associated with serotonin syndrome but there was no clonus appreciated -- Postlaminectomy syndrome with claudication S/p Pulmicort stimulator 01/2022 Cardiac - --Shock Combination of dehydration, Sepsis cannot be ruled out Continue with broad-spectrum antibiotics Vasopressor support to keep MAP greater than 65 Follow-up random cortisol --Syncopal episode Etiology is not clear right now Will need interrogation of the pacemaker EKG 03/30/2023 1:58 PM: Sinus tachycardia, left axis deviation, no ST-T wave changes --Elevated troponin Likely type II RI Continue to trend and monitor --History of sick sinus syndrome status post pacemaker 12/2020 --Hypertension dyslipidemia Hold blood pressure medication right now --History of carotid stenosis 70% left ICA Respiratory - -- COPD with emphysema Continue with Anoro while in the hospital GI - -- No acute issues RENAL/LYTES - -- MARIE on CKD Follow-up urine lites Monitor BUN/creatinine Avoid nephrotoxic medications Strict ins and outs - Continue with Meneses catheter ENDO - -- Hypothyroidism Continue with levothyroxine --Diabetes type 2 Continue with ICU hypoglycemia protocol HEME - --Normocytic anemia Monitor H&H -- Thrombocytopenia Continue to monitor ID - -- Urine clean Continue with broad-spectrum antibiotics for at least 48 hours Follow-up procalcitonin and blood culture Musculoskeletal - -- Macular blanching rash on the lower extremity bilaterally Blisters appreciated on the right anterior lateral thigh Could be from lying on the ground for a long time --Elevated CPK Likely secondary to lying on the ground for long time Continue with IV fluids --Prophylaxis VTE: Heparin GI: None -- DNR/DNI Lines: Peripheral Diet: N.p.o. Plan: Follow-up random cortisol Continue with broad-spectrum antibiotics Patient got 4 L of IV fluids so far. Give Plasma-Lyte 75 mill an hour for 1 more liter. Continue vasopressor support to keep MAP greater than 65 We will try to get in touch with ophthalmology for the vision loss on the left side We will wait for the CTA of the head and neck to see if there is any high-grade stenosis and/emboli causing the sudden vision loss on the left I have personally spent 63 minutes of critical care time in the direct management of this patient. This is a life/limb threatening event. This includes time spent evaluating patient, direct bedside care, chart review, placing orders, interpretation of diagnostic studies, discussion with consultants, patient, and family members, as well as other required patient management activities. This time is exclusive of all separately billable procedures, and teaching time and separate from and in addition to any other critical care service time. History of Present Illness Attending Physician: Dez Easton MD History of Present Illness 87-year-old male presented to the hospital as he was found down in the yard hypothermic and 105 Past medical history: CKD, diabetic neuropathy, diabetes type 2, COPD, postlaminectomy syndrome, sick sinus syndrome status post pacemaker In the ER patient was given 4 L of fluid and he was still found to be hypotensive, sent to the ICU for vasopressor support At the time of examination patient was not in any distress in the ICU. He was saturating 98% on room air. He was awake alert and answering all the questions appropriately He was on 0.05 of Levophed with MAP 71. He denies any chest pain, no shortness of breath, no headache, no nausea, no vomiting, no abdominal pain. He does not recall what happened and how he ended up in the hospital. Denies any dysuria, no diarrhea prior to this episode He does complain of unable to see from the left eye which is new. Allergies Allergy/AdvReac Type Severity Reaction Status Date / Time No Known Allergies Allergy Verified 03/30/23 16:09 Home Medications Medication Instructions Recorded Confirmed Type cyanocobalamin (vitamin B-12) 1,000 mcg PO QAM 11/30/18 03/30/23 History 1,000 mcg tablet (Vitamin B-12) esomeprazole magnesium 40 mg 40 mg PO QAM 11/30/18 03/30/23 History capsule,delayed release (Nexium) cholecalciferol (vitamin D3) 25 25 mcg PO QAM 01/11/21 03/30/23 History mcg (1,000 unit) capsule (Vitamin D3) lisinopril 5 mg tablet 5 mg PO QAM #90 tabs 08/08/22 03/30/23 Rx albuterol sulfate 90 mcg/actuation 2 inh inhalation QID PRN shortness 01/23/23 03/30/23 Rx aerosol inhaler of breath or wheezing #8.5 grams fluticasone furoate 100 1 inh inhalation DAILY #60 ea 01/23/23 03/30/23 Rx mcg-vilanterol 25 mcg/dose inhalation powder (Breo Ellipta) insulin aspart U-100 100 unit/mL 0 unit subcut TIDM 03/30/23 03/30/23 History (3 mL) subcutaneous pen (Novolog FlexPen U-100 Insulin aspart) insulin glargine U-300 conc 300 0 unit subcut HS 03/30/23 03/30/23 History unit/mL (1.5 mL) subcutaneous pen (Toujeo SoloStar U-300 Insulin) latanoprost 0.005 % eye drops 1 drp OPB DAILY 03/30/23 03/30/23 History levothyroxine 112 mcg tablet 112 mcg PO QAM 03/30/23 03/30/23 History Patient History Medical History BPH with obstruction/lower urinary tract symptoms Carotid artery stenosis Chronic anemia Baseline hgb 10s per chart review Chronic obstructive pulmonary disease Chronic pain syndrome CKD (chronic kidney disease), stage III Diabetes mellitus, type 2 IDDM GERD (gastroesophageal reflux disease) Controlled Hearing deficit B/L [place] History of basal cell carcinoma S/P excision History of colon cancer Approximately 2000- s/p partial colon resection + chemo History of SCC (squamous cell carcinoma) of skin Hypothyroidism Pacemaker Dual chamber PPM, 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 [employer]. Follows with [facility] (Pacer check 05/15/22 per EP visit note) Post laminectomy syndrome Spinal stenosis Surgical History History of back surgery X2 ([facility]) History of basal cell carcinoma (BCC) excision History of colon resection History of colonoscopy History of esophagogastroduodenoscopy (EGD) History of hernia repair X 5 History of nasal septoplasty bilateral inferior turbinate reduction-03/29/18 History of phacoemulsification of cataract of left eye with intraocular lens implantation History of right cataract surgery History of squamous cell carcinoma excision History of tooth extraction Hx of cardiac pacemaker Implanted December 2020 Hx of left cataract extraction Spinal cord stimulator status inserted 01/2022 Family History Unknown Heart disease No family history of bleeding disorder Brother Hemochromatosis Brother Myocardial infarction Denies family history of Ovarian cancer Prostate cancer Breast cancer Colorectal cancer Social History Smoking Status: Former smoker Tobacco Type: Cigarettes Age Started Using Tobacco: 16; Age Quit Using Tobacco: 38; packs per day: 1; Cigarettes Per Day: Quit 45-50 years ago; Second Hand Exposure: No; Do You Dip or Chew Tobacco: No; Tobacco Cessation Education Requested by Patient: No Hx Alcohol Use: No Hx Substance Use: No Preferred Language: Filipino Communication Ability: Effective Visual Impairment: Partially Limited Hearing Ability: Use of Hearing Aid Interactive Developer Required: No Beliefs That Will Affect Care: None marital status: Current Living Situation: Spouse current occupational status: retired 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 Other Information That Helps Us Care for You: No Feels Safe at Home: Yes Safety Concerns: Feels Safe At This Time Childhood Exposure to Second-Hand Smoke: No Diet: regular caffeine: Yes Dental Care, Regularly: Yes Physical Activity Frequency: 1-2 Times per Week Physical Activity Frequency Comment: pulm biking Seatbelt Use: always Sunscreen Use: Yes Do you think of yourself as: straight/heterosexual Assistive Devices: Cane, Denture - Upper, Denture - Lower, Hearing Aid - Bilateral, Walker and Other Review of Systems Review of Systems: All systems reviewed & are unremarkable except as noted in HPI & below Physical Exam Physical Exam: Constitutional: No acute distress HEENT: EOMI, right eye PERRLA, left pupil not responsive to light Respiratory system: Good air entry bilaterally, no wheeze, no rhonchi, no crackles CVS: S1-S2 positive, no murmurs or gallops, left-sided pacemaker Abdomen: Soft, nontender, nondistended, positive bowel sounds x4 Extremities: +2 pulses bilaterally radialis/ dorsalis pedis, no cyanosis, no edema, macular blanching rash appreciated on the medial aspect of the left thigh as well as lateral aspect of the right thigh, clear blisters on the anterior lateral surface of the right thigh Neuro: Awake alert oriented x3, cranial nerves II to XII grossly intact, patient unable to see from the left eye Psych: Normal mood and affect G/U: Positive Meneses Skin: no rashes, warm and dry Lymphatic: no cervical or axillary lymphadenopathy Results & Data Results & Data Vital Signs (Past 12 Hours) Vital Signs Temp Pulse Pulse Resp BP BP Pulse Ox 03/30/23 17:24 102/52 L 03/30/23 17:24 70 16 97 03/30/23 17:20 70 14 98 03/30/23 17:10 114 H 15 03/30/23 17:00 117 H 17 97 03/30/23 17:00 82/54 L 03/30/23 16:58 76/49 L 03/30/23 16:58 115 H 17 98 03/30/23 16:50 114 H 17 99 03/30/23 16:40 115 H 22 98 03/30/23 16:33 85/55 L 03/30/23 16:33 117 H 17 98 03/30/23 16:58 35.5 C L 76/49 L 03/30/23 16:31 87/50 L 03/30/23 16:31 117 H 17 98 03/30/23 16:30 116 H 15 97 03/30/23 16:30 76/45 L 03/30/23 16:20 78 25 H 97 03/30/23 16:15 94/51 L 03/30/23 16:15 81 14 97 03/30/23 16:10 85 14 97 03/30/23 16:00 85 15 98 03/30/23 16:00 102/52 L 03/30/23 15:50 89 15 98 03/30/23 15:45 114/55 L 03/30/23 15:45 96 H 20 97 03/30/23 15:40 121 H 24 95 03/30/23 15:30 124 H 14 98 03/30/23 15:30 128/76 03/30/23 15:20 129 H 16 87 L 03/30/23 15:15 133 H 19 98 03/30/23 15:15 99/60 L 03/30/23 15:10 136 H 19 97 03/30/23 15:00 103 H 19 97 03/30/23 15:00 104/58 L 03/30/23 14:50 110 H 22 97 03/30/23 14:45 98/48 L 03/30/23 14:45 109 H 22 96 03/30/23 14:40 116 H 24 95 03/30/23 15:36 36.0 C L 03/30/23 15:20 36.2 C L 128 H 16 99/60 L 96 03/30/23 14:30 120 H 25 H 94 03/30/23 14:20 39.4 C H 122 H 27 H 96/48 L 94 03/30/23 14:18 39.4 C H 114 H 26 H 94/51 L 98 03/30/23 14:46 38.5 C H 109 H 18 98/48 L 97 03/30/23 14:38 38.8 C H 03/30/23 13:50 40.5 C H 138 H 23 118/69 100 03/30/23 14:26 92 03/30/23 14:24 120 H 24 89 L 03/30/23 14:01 124 H O2 Del Method O2 Flow Rate 03/30/23 17:24 03/30/23 17:24 03/30/23 17:20 03/30/23 17:10 03/30/23 17:00 03/30/23 17:00 03/30/23 16:58 03/30/23 16:58 03/30/23 16:50 03/30/23 16:40 03/30/23 16:33 03/30/23 16:33 03/30/23 16:58 03/30/23 16:31 03/30/23 16:31 03/30/23 16:30 03/30/23 16:30 03/30/23 16:20 03/30/23 16:15 03/30/23 16:15 03/30/23 16:10 03/30/23 16:00 03/30/23 16:00 03/30/23 15:50 03/30/23 15:45 03/30/23 15:45 03/30/23 15:40 03/30/23 15:30 03/30/23 15:30 03/30/23 15:20 03/30/23 15:15 03/30/23 15:15 03/30/23 15:10 03/30/23 15:00 03/30/23 15:00 03/30/23 14:50 03/30/23 14:45 03/30/23 14:45 03/30/23 14:40 03/30/23 15:36 03/30/23 15:20 Nasal Cannula 2 03/30/23 14:30 03/30/23 14:20 Nasal Cannula 2 03/30/23 14:18 Nasal Cannula 2 03/30/23 14:46 Nasal Cannula 2 03/30/23 14:38 03/30/23 13:50 Non-rebreather 15 03/30/23 14:26 Nasal Cannula 2 03/30/23 14:24 Room Air 03/30/23 14:01 Laboratory Results 03/30/23 14:05 03/30/23 14:05 Coding Level of Care Code 38925 CRITICAL CARE 1ST 30-74M Diagnoses Unresponsive episode R40.4 Heat stroke T67.01XA Encounter type: initial encounter AMS (altered mental status) R41.82 Altered mental status type: unspecified MARIE (acute kidney injury) N17.9 Paroxysmal SVT (supraventricular tachycardia) I47.1 Chronic pain syndrome G89.4 Diabetic peripheral neuropathy E11.42 Hypertension I10 Shock circulatory R57.9 Time Spent (min) 63 (2) Heat stroke Encounter type: initial encounter Qualified Code(s): T67.01XA - Heatstroke and sunstroke, initial encounter (3) AMS (altered mental status) Altered mental status type: unspecified Qualified Code(s): R41.82 - Altered mental status, unspecified
[2023-03-30] MEDS ORDERED: PLASMA-LYTE A 1,000 ML IV SCH (19:15)
[2023-03-30] MEDS ORDERED: GLUCAGON FOR INJ 1 MG VIAL SQ PRN (19:17)
[2023-03-30] MEDS ORDERED: GLUCOSE 10 TAB/TUBE PO PRN (19:17)
[2023-03-30] MEDS ORDERED: ACETAMINOPHEN 325 MG TAB PO PRN (19:17)
[2023-03-30] MEDS ORDERED: DEXTROSE 50% 50 ML SYRINGE IV PRN (19:17)
[2023-03-30] MEDS ORDERED: CARBOHYDRATES FOR HYPOGLYCEMIA PO PRN (19:17)
[2023-03-30] MEDS ORDERED: GLUCOSE 40% GEL 15 GM TUBE PO PRN (19:17)
[2023-03-30] MEDS: MAGNESIUM SULFATE / D5W 1 GM/100 ML BAG IV SCH ×2 (19:30→21:28)
[2023-03-30] MEDS: PLASMA-LYTE A 1,000 ML IV SCH (19:31)
[2023-03-30 20:23] LABS: Creatinine Urine Random 115.3 mg/dl
--- NOTE | 2023-03-30 20:36 | Discharge Summary ---
Date of Service March 30, 2023 Admission HPI Per Admitting Provider Torres is an 87-year-old male past medical history of chronic anemia, type II DM, chronic pain, diabetic neuropathy, CKD 3, COPD, postlaminectomy syndrome with R heart failure with last echo 12/2020 showing normal RV SF, normal RVSP, no MR/mild TR/normal AV was found down in the yard and who was hyperthermic to 105 on route, 38.5 in the ER, and he was hypotensive and tachycardic on arrival to the ER. Torres is seen at the bedside with friend present. He reports he remembers weeding in his yard this morning and was in normal state of health yesterday and then remembers waking up in the hospital. Per strangers with him he has had progressive weakness and difficulty caring for himself and has no family in the area, office of aging has been contacted. He notes he does see Torres most days and torres was in a completely normal state of health yesterday with no neurologic deficits, no fevers, chills, sweats, no cough and had not been complaining of any infectious symptoms. Torres reports he has no chest pain, no chest pressure, is not feeling feverish or chilly, and does not have any pain at bedside assessment but is very thirsty. He notes he thinks he felt normal when he woke up this morning, does not remember much other than weeding in the garden. He thinks he took his medications this morning but is not sure he has no pain when flexing or extending his head, denies photosensitivity/phono sensitivity but d oes have a mild headache in the back of his head. He notes that he has a complete loss of vision in his left eye which is new, he does not know when this started other than that it was not present when he went to bed last night. He has a history of pacemaker placement, but is not sure why he has this. Notes it was probably related to his heart or breathing. He denies a history of heart failure or heart attacks. He has history of diabetes and manages his own insulin which he thinks he took this morning. Reports he would not want heroic measures or resuscitation in the event of cardiac arrest, confirms DNR/DNI Medical History: Reviewed Medications: Reviewed Surgical History: Reviewed Family history: Reviewed Allergies: Reviewed Social History: Reviewed Code Status: DNR/DNI Principal Diagnosis Symptomatic carotid stenosis with CVA, SVT, unresponsive episode with hyperthermia from sun exposure Discharge Exam On discharge patient remains with left vision loss, no other focal neurologic deficits. He is mentating and answer questions, remains borderline hypotensive 901 100s on Levophed with pulse in the 70s. The admitting exam, transferred [place] [facility] [place]charge Data Allergies Allergy/AdvReac Type Severity Reaction Status Date / Time No Known Allergies Allergy Verified 03/30/23 16:09 Consultations 03/30/23 14:58 ED Decision to Admit Stat 03/30/23 17:11 Consult Storeroom Keeper Routine 03/30/23 19:39 Radiology Transfer Of Images Stat 03/30/23 20:31 Burn CD for patient Stat Ordered Studies 03/30/23 13:52 CT head/brain wo con Stat 03/30/23 14:03 CT cervical spine wo con Stat 03/30/23 15:17 MRI Brain [MR brain wo con] Urgent 03/30/23 15:19 MR angio head wo con Urgent US carotid doppler BI Routine 03/30/23 17:23 CT angio head w con Stat CT angio neck with con Stat Hospital Course (1) Unresponsive episode: Summary: Patient admitted after he was found hypothermic and unresponsive. Initially treated for broad etiology, and was given cooling blankets and fluids to bring temperature down from 105. CT normal, was unable to obtain MRI due to not having remote for lumbar hardware and pacemaker placement. Pacemaker did show episode of SVT, tachycardic and then sinus tachycardia following fluids in ER. Patient with 4 L of fluid subsequent remaining hypotension although lactate normalized, was transferred to ICU on Levophed for pressure support. Mentation improved with fluid support and pressures, additional history was able to be obtained from patient. Patient identified new left vision loss, initially unclear last known normal was thought to be evening prior on further history likely to be around 11 AM 03/30. CT angios were obtained due to inability to get MRI, angios did show carotid stenosis and suspect patient had symptomatic carotid stenosis with embolic left vision loss. [facility] [place] consulted for transfer, discussed with neuro ICU and ultimately transferred to their facility for further care. Patient is recommended to keep systolic pressure between 101 40 with Levophed Fever/hyperthermia Patient found down in the yard with temperature of 105 Differential includes CVA and SVT leading to syncope and subsequent heatstroke while lying in the sun versus primary heatstroke. No leukocytosis, no neutrophilic expansion or left shift Temperature 38.5 on arrival Hypotensive 9451 on arrival, improving with second liter of NSS running at time of assessment Hemoglobin 9.7, last 10.3. MCV normal. VBG 7.42/PCO2 29/PO2 81/HCO3 19. Mild respiratory alkalosis. Baseline creatinine 1.261.53, admitting creatinine 1.64 Lactate 2.3 Magnesium 1.6 Repeat tickborne serology pending. No bull's-eye rash, patient does have a blanching erythematous rash on the right aspect of both extremities unclear what position he was laying in while in the sun CK 277 High-sensitivity troponin 23 As patient was found down will treat broadly until cardiogenic, neurogenic, infectious, and exposure etiologies are further assessed. Patient has received empiric Rocephin, will defer additional coverage in absence of leukocytosis or other infectious symptoms. Admitting EKG: Sinus tachycardia, nonspecific ST change and QTc 407. No territorial ST segment/T wave changes. Suspect demand ischemia Troponin trend pending, echo pending From interrogation pending, per report appears to have had a narrow complex tachycardia? SVT around 130 Is on SSRI, however does not have clonus and is now mentating normally with initial treatment. Low suspicion for serotonin syndrome but will hold sertraline Rhabdomyolysis CK2 77 in the setting of laying on the ground. Fluids, trend renal function daily. Can repeat one CK tomorrow, as long as this remains either downtrending or less than 1000 and defer additional repeat Left-sided vision loss Patient reports new complete left-sided vision loss Oral collateral collected from neighbor/friend who notes that he was completely normal yesterday with no fevers, chills, sweats infectious symptoms or deficits Patient reports a complete loss of vision in all quadrants and including light in left eye which is new since arriving in the hospital. - CThead: No acute findings, no evidence of acute stroke CTC-spine: No acute findings, no fracture or subluxation As patient was found down is an unclear last known normal if this was stroke TNKase is not indicated due to duration of onset and timing of presentation. Known carotid stenosis on the left side, MRI and MRA angio with neck ultrasound pending - Aspirin ordered. Denies any history of bleeding problems. Hx sick sinus syndrome s/p pacemaker placement 12/2020 Patient with pacemaker in place. At last interrogation 11/2022 was with atrial pacing and no arrhythmias. Repeat interrogation pending Troponin is noted Type II DM Admitting BSG 184 On basal bolus at home, basal 12-22 units and aspart with meals Was not hypoglycemic on arrival We will continue weight-based basal bolus while inpatient Pharmacy consulted for assistance with glycemic management Hypertension Lisinopril held with MARIE BPH with LUTS - Bladder scan every shift, straight cath as needed, Meneses if recurrent cath required UA bland on arrival History of carotid stenosis 70% left ICA on the left side followed as outpatient. No history of CVA Is with left vision loss as above Hypothyroidism Continue Synthroid TSH pending COPD Last PFTs with mild obstructive disease Continue Breo Albuterol as needed -SPO2 goal 89%, do not hyper oxygenate Postlaminectomy syndrome with claudication S/p spinal cord stimulator 01/2022 No spinal tenderness on exam No acute management at this time DVT prophylaxis: Lovenox starting 03/31, SCDs Diet: Heart healthy Disposition: PCU CODE STATUS: DNR/DNI (2) Uncontrolled type 2 diabetes mellitus with complication, with long-term current use of insulin: (3) Heat stroke: (4) Paroxysmal SVT (supraventricular tachycardia): (5) Controlled type 2 diabetes mellitus with diabetic neuropathy, with long-term current use of insulin: (6) BPH with obstruction/lower urinary tract symptoms: (7) Tachycardia-bradycardia: (8) Post laminectomy syndrome: Total Time Total Time Spent Total Time Spent (In Minutes): Time spent day of admission and discharge including initial care, H&P, reevaluation, documentation approximately 90 minutes. Additional hour of care was spent on reevaluation, initiation of pressors, and critical care/stabilization. Discharge Plan Discharge Items Patient Disposition: Transfer Acute Care Hospital Reason For Visit: T 105*F, L VISON LOSS Discharge Diagnosis: CVA, Heatstroke Activity: As commented below Non-emergency contact: Specialist Call non-emergency contact if: you have any medication questions Follow-up/Referrals: Napoleon Herron DO [Primary Care Provider] - Diet: Nothing by Mouth Addtl Attending Provider Instructions: Addendum: Accepted for transfer to [facility] for L vision loss suspect embolic symptomatic ICA stenosis. March 30, 2023 19:48 Improving mentation, complete L vision loss. CTA showedadvanced atherosclerotic plaque throughout the carotid arteries with approximately 60% focal stenosis of the origin of the left internal carotid artery and 50% focal stenosis at the origin of the right internal carotid artery. Complete occlusion at the origin of the right external carotid artery with immediate reconstitution. 2/2 symptomatic carotid stenosis with focal L vision loss recommended to xfer to [facility] for vascul ar serves & opthomology eval. Stroke alert called to facilitate telestroke eval w/ Dr. Navarrete. Pt mentation is improved with fluids and levophed and is able to give history on reassessment, lactate normalized, hstrop with mild elevation without cp/cp. Addendum Signed By: <Electronically signed by Dez Easton MD> 03/30/231950 Addendum Cosigned By: Created: 03/30/2304/15/1951 ADDENDUM 03/30/23ddendum March 30, 2023 17:20 unable to obtain MRI today due to spinal cord stimulator remote unavailability and pacer staff availability. Risk exceeds beneift of CTA w contrast which is ordered Addendum Signed By: <Electronically signed by Dez Easton MD> 03/30/231719 Addendum Cosigned By: Created: 03/30/2304/15/1720 ADDENDUM 03/30/23 1711Addendum March 30, 2023 17:09 2L NSS given, 1L NSS in ER, and with 1L Plasmalyte bolus running remains tachy and hypotensive to 70s. Random cortisol drawn, 100mcg methylpred ordered, transferring to ICU for additional care. Levophed ordered for map <65. Addendum Signed By: <Electronically signed by Dez Easton MD> 03/30/231710 Addendum Cosigned By: Created: 03/30/2304/15/1711 Date of Service March 30, 2023 Assessment & Plan (1) Unresponsive episode: Plan: Fever/hyperthermia Patient found down in the yard with temperature of 105 Differential includes CVA and SVT leading to syncope and subsequent heatstroke while lying in the sun versus primary heatstroke. No leukocytosis, no neutrophilic expansion or left shift Temperature 38.5 on arrival Hypotensive 9451 on arrival, improving with second liter of NSS running at time of assessment Hemoglobin 9.7, last 10.3. MCV normal. VBG 7.42/PCO2 29/PO2 81/HCO3 19. Mild respiratory alkalosis. Baseline creatinine 1.261.53, admitting creatinine 1.64 Lactate 2.3 Magnesium 1.6 Repeat tickborne serology pending. No bull's-eye rash, patient does have a blanching erythematous rash on the right aspect of both extremities unclear what position he was laying in while in the sun CK 277 High-sensitivity troponin 23 As patient was found down will treat broadly until cardiogenic, neurogenic, infectious, and exposure etiologies are further assessed. Patient has received empiric Rocephin, will defer additional coverage in absence of leukocytosis or other infectious symptoms. Admitting EKG: Sinus tachycardia, nonspecific ST change and QTc 407. No territorial ST segment/T wave changes. Suspect demand ischemia Troponin trend pending, echo pending From interrogation pending, per report appears to have had a narrow complex tachycardia? SVT around 130 Is on SSRI, however does not have clonus and is now mentating normally with initial treatment. Low suspicion for serotonin syndrome but will hold sertraline Rhabdomyolysis CK2 77 in the setting of laying on the ground. Fluids, trend renal function daily. Can repeat one CK tomorrow, as long as this remains either downtrending or less than 1000 and defer additional repeat Left-sided vision loss Patient reports new complete left-sided vision loss Oral collateral collected from neighbor/friend who notes that he was completely normal yesterday with no fevers, chills, sweats infectious symptoms or deficits Patient reports a complete loss of vision in all quadrants and including light in left eye which is new since arriving in the hospital. - CThead: No acute findings, no evidence of acute stroke CTC-spine: No acute findings, no fracture or subluxation As patient was found down is an unclear last known normal if this was stroke TNKase is not indicated due to duration of onset and timing of presentation. Known carotid stenosis on the left side, MRI and MRA angio with neck ultrasound pending - Aspirin ordered. Denies any history of bleeding problems. Hx sick sinus syndrome s/p pacemaker placement 12/2020 Patient with pacemaker in place. At last interrogation 11/2022 was with atrial pacing and no arrhythmias. Repeat interrogation pending Troponin is noted Type II DM Admitting BSG 184 On basal bolus at home, basal 12-22 units and aspart with meals Was not hypoglycemic on arrival We will continue weight-based basal bolus while inpatient Pharmacy consulted for assistance with glycemic management Hypertension Lisinopril held with MARIE BPH with LUTS - Bladder scan every shift, straight cath as needed, Meneses if recurrent cath required UA bland on arrival History of carotid stenosis 70% left ICA on the left side followed as outpatient. No history of CVA Is with left vision loss as above Hypothyroidism Continue Synthroid TSH pending COPD Last PFTs with mild obstructive disease Continue Breo Albuterol as needed -SPO2 goal 89%, do not hyper oxygenate Postlaminectomy syndrome with claudication S/p spinal cord stimulator 01/2022 No spinal tenderness on exam No acute management at this time DVT prophylaxis: Lovenox starting 03/31, SCDs Diet: Heart healthy Disposition: PCU CODE STATUS: DNR/DNI (2) Uncontrolled type 2 diabetes mellitus with complication, with long-term current use of insulin: (3) Heat stroke: (4) Paroxysmal SVT (supraventricular tachycardia): (5) Controlled type 2 diabetes mellitus with diabetic neuropathy, with long-term current use of insulin: (6) BPH with obstruction/lower urinary tract symptoms: (7) Tachycardia-bradycardia: (8) Post laminectomy syndrome: Pending Studies at Discharge: No Stand-Alone Forms: My [facility] Skilled Items Patient informed of condition?: No DNR: Yes Discharge Level of Care: Acute rehab Communicable Disease: No Discharge Prognosis: Improving Lines: US Guided Peripheral IV Urinary Catheter: No Medications and DC Order Prescriptions: Continued lisinopril 5 mg tablet 5 mg PO QAM Qty: 90 3RF fluticasone furoate-vilanterol [Breo Ellipta] 100-25 mcg/dose blister with device 1 inh inhalation DAILY Qty: 60 5RF albuterol sulfate 90 mcg/actuation HFA aerosol inhaler 2 inh inhalation QID PRN (Reason: shortness of breath or wheezing) Qty: 8.5 5RF cyanocobalamin (vitamin B-12) [Vitamin B-12] 1,000 mcg Tablet 1,000 mcg PO QAM esomeprazole magnesium [Nexium] 40 mg Capsule,Delayed Release(Dr/Ec) 40 mg PO QAM latanoprost 0.005 % drops 1 drp OPB DAILY insulin aspart U-100 [Novolog FlexPen U-100 Insulin] 100 unit/mL (3 mL) insulin pen 0 unit subcut TIDM Patient Comments: SLIDING SCALE Rx Instructions: SLIDING SCALE DEPENDING ON BSG with meals Catarina MccordoStar U-300 Insulin 300 unit/mL (1.5 mL) insulin pen 0 unit subcut HS Rx Instructions: PATIENT CAN NOT REMEMBER HOW MANY UNITS. levothyroxine 112 mcg tablet 112 mcg PO QAM Rx Instructions: TAKE 1 TABLET BY MOUTH EVERY MORNING cholecalciferol (vitamin D3) [Vitamin D3] 25 mcg (1,000 unit) Capsule 25 mcg PO QAM Discharge Orders: Discharge Order (Routine); Ordered 03/30/23 Ordered By: Dez Easton Admission Data Admit Date/Time: 03/30/23 15:45 Attending Provider: Dez Easton Admit Provider: Dez Easton Primary Care Provider: Napoleon Herron Other Providers: Dez Easton ; Luc Bonner Coding Level of Care Code INP/OBS EV SAME DAY LV 3,85MIN Diagnoses Unresponsive episode R40.4 Uncontrolled type 2 diabetes mellitus with complication, with long-term current use of insulin E11.8; E11.65; Z79.4 Heat stroke T67.01XA Encounter type: initial encounter Paroxysmal SVT (supraventricular tachycardia) I47.1 Controlled type 2 diabetes mellitus with diabetic neuropathy, with long-term current use of insulin E11.40; Z79.4 BPH with obstruction/lower urinary tract symptoms N40.1; N13.8 Tachycardia-bradycardia I49.5 Post laminectomy syndrome M96.1 Time Spent (min) 120
--- NOTE | 2023-03-30 20:36 | Billing Data ---
Date of Service March 30, 2023 Coding Level of Care Code 73903 CRITICAL CARE
[2023-03-30] MEDS ORDERED: LANTUS PER UNIT CHARGE SQ SCH (21:00)
[2023-03-30] MEDS ORDERED: INSULIN ASPART PER UNIT CHARGE SC SCH (21:00)
--- NOTE | 2023-03-30 21:48 | Communication Note ---
Date of Service: March 30, 2023 Update on Transfer. We are currently awaiting transport, which currently will be delayed possibly until morning. Patient is ACLS ground secondary to vasopr essors. I did discuss delay with Dr. Navarrete (accepting NICU physician and [facility] and delaying transfer until morning time will not currently delay intervention or plans. If patient symptoms worsen or further neurological decline occur- we will re-assess. Plan communicated with patient and transfer team. Burton LAGUNA ([facility]
[2023-03-31] MEDS: PLASMA-LYTE A 1,000 ML IV SCH (03:41)
[2023-03-31] MEDS ORDERED: LEVOTHYROXINE SODIUM 112 MCG TABLET PO SCH (06:30)
[2023-03-31 06:39] LABS: Albumin Globulin Ratio 1.3 (0.9-2); Albumin Level 3.6 gm/dl (3.4-5.0); BUN Creatinine Ratio 17.3 (10-20); Bilirubin,Total 0.5 mg/dl (0.2-1.0); Calcium 8.3 mg/dl (8.6-10.3); Creatinine Clr Calc Pharmacy 44.6 ml/min; Est GFR (African American) 57.7 ml/min; Est GFR (Non-African American) 49.8 ml/min; Globulin 2.7 gm/dl (2.5-4.0); Potassium 4.6 mmol/L (3.5-5.1); Total Protein 6.3 gm/dl (6.0-8.3)
[2023-03-31 06:40] LABS: Basophils # (auto) 0.01 K/uL (0-0.2); Basophils % (auto) 0.3 %; Hemoglobin 8.4 g/dl (14.0-18.0); Hypogranular Neutrophils 1+; Immature Granulocytes # (auto) 0.01 K/uL (0.01-0.20); Immature Granulocytes % (auto) 0.3 %; Lymphocytes # (auto) 0.58 K/uL (1.2-3.4); Lymphocytes % (auto) 18.7 %; Mean Corpuscular Hemoglobin 32.1 pg (25.0-34.0); Mean Corpuscular Hgb Conc 33.6 g/dL (32.0-36.0); Mean Corpuscular Volume 95.4 fL (80.0-100.0); Mean Platelet Volume 10.5 fL (9.4-12.4); Monocytes # (auto) 0.04 K/uL (0.11-0.59); Monocytes % (auto) 1.3 %; Neutrophils # (auto) 2.46 K/uL (1.40-6.50); Neutrophils % (auto) 79.4 %; Platelet Count 88 K/uL (130-400); Polychromasia 1+; RDW Coefficient of Variation 15.4 % (11.5-14.5); RDW Standard Deviation 53.6 fL (36.4-46.3); Red Blood Count 2.62 M/uL (4.70-6.10)
--- NOTE | 2023-03-31 07:08 | Electrocardiogram Report ---
Test Reason : Blood Pressure : / mmHG Vent. Rate : 129 BPM Atrial Rate : 129 BPM P-R Int : 184 ms QRS Dur : 088 ms QT Int : 278 ms P-R-T Axes : 041 -62 071 degrees QTc Int : 407 ms Sinus tachycardia Left axis deviation Nonspecific ST abnormality Abnormal ECG When compared with ECG of 26-MAY-2022 08:44, Sinus rhythm has replaced Electronic atrial pacemaker Vent. rate has increased BY 51 BPM Incomplete right bundle branch block is no longer Present Confirmed by Satish Ortega ([id number]) on 03/31/2023 7:07:44 AM Referred By: Confirmed By:Lorne Ortega
--- NOTE | 2023-03-31 07:23 | Critical Care Progress Note ---
Date of Service March 31, 2023 Assessment & Plan (1) Unresponsive episode: (2) Heat stroke: (3) AMS (altered mental status): (4) MARIE (acute kidney injury): (5) Paroxysmal SVT (supraventricular tachycardia): (6) Chronic pain syndrome: (7) Diabetic peripheral neuropathy: (8) Hypertension: (9) Shock circulatory: Plan Reason Critically Ill: 87-year-old male was brought in to the hospital as he was found down in the yard. He was found to be hyperthermic 105 and hypotensive. In the ER he got bolus fluid but was still hypotensive and sent to the ICU for vasopressor support Neuro - [facility] ICU: Negative --Acute left-sided vision loss We will try to get an ophthalmology consult Follow-up CTA head and neck On physical exam there is no neurological deficit except for vision loss. Patient unable to do MRI of the brain CTA head and neck 03/30/2023: No evidence of hemorrhage, mass effect or acute territorial ischemia Complete occlusion of the right external carotid artery, high-grade focal stenosis at the left external carotid artery, vertebral arteries are patent Advanced atherosclerotic plaque with 60% focal stenosis of the left and 50% of the right --Fever of 105 Chest x-ray is clean, unlikely to be influenza Heatstroke is a possibility given that he was down in the heat for the long time Patient is also taking sertraline which is associated with serotonin syndrome but there was no clonus appreciated -- Postlaminectomy syndrome with claudication S/p Pulmicort stimulator 01/2022 Cardiac - -- S/p shock Combination of dehydration, Sepsis cannot be ruled out Continue with broad-spectrum antibiotics Off vasopressors as of midnight Random cortisol 12.6 --Syncopal episode Etiology is not clear right now Will need interrogation of the pacemaker EKG 03/30/2023 1:58 PM: Sinus tachycardia, left axis deviation, no ST-T wave changes --Elevated troponin Likely type II VA Continue to trend and monitor --History of sick sinus syndrome status post pacemaker 12/2020 --Hypertension dyslipidemia Hold blood pressure medication right now --History of carotid stenosis 70% left ICA Respiratory - -- COPD with emphysema Continue with Anoro while in the hospital GI - -- No acute issues RENAL/LYTES - -- MARIE on CKD --> improving Monitor BUN/creatinine Avoid nephrotoxic medications Strict ins and outs - Continue with Meneses catheter ENDO - -- Hypothyroidism Continue with levothyroxine --Diabetes type 2 Continue with ICU hypoglycemia protocol HEME - --Normocytic anemia Monitor H&H -- Thrombocytopenia Continue to monitor ID - -- Urine clean Continue with broad-spectrum antibiotics for at least 48 hours Follow-up procalcitonin and blood culture Musculoskeletal - -- Macular blanching rash on the lower extremity bilaterally Blisters appreciated on the right anterior lateral thigh Could be from lying on the ground for a long time --Elevated CPK Likely secondary to lying on the ground for long time Continue with IV fluids --Prophylaxis VTE: Heparin GI: None -- DNR/DNI Lines: Peripheral Diet: N.p.o. Plan: In/out +2.7 L, urine output 1974 Patient has been off vasopressor support since midnight. Still no vision in the left eye. CT of the head and neck does show high-grade stenosis of the right external carotid and complete stenosis of left external carotid Case was discussed with [facility] and they have accepted the patient. He is going to be transferred today Please note the above document was generated using voice recognition software. It may contain grammatical, syntax or spelling errors.Any formal questions or concerns about the content, text or information contained within the body of this dictation should be directly addressed to the provider for clarification. Admission and Anticipated Discharge Date Admission Date: March 30, 2023 Subjective Patient seen and examined at bedside. No acute distress, no adverse events overnight His map was in the 70s when at the time of examination off of vasopressors. Vasopressors have been off since midnight. Denies any headache, no nausea, no vomiting Still no vision in the left eye. Able to move all his extremities without any issues Denies any chest pain, no shortness of breath Has been afebrile since coming to the hospital Review of Systems Review of Systems: All systems reviewed & are unremarkable except as noted in Subjective Physical Exam Physical Exam: Constitutional: No acute distress HEENT: EOMI, right eye PERRLA, left pupil not responsive to direct light but does have concurrent constriction on shining light n the right eye. Respiratory system: Good air entry bilaterally, no wheeze, no rhonchi, no crackles CVS: S1-S2 positive, no murmurs or gallops, left-sided pacemaker Abdomen: Soft, nontender, nondistended, positive bowel sounds x4 Extremities: +2 pulses bilaterally radialis/ dorsalis pedis, no cyanosis, no edema, macular blanching rash appreciated on the medial aspect of the left thigh as well as lateral aspect of the right thigh, clear blisters on the anterior lateral surface of the right thigh Neuro: Awake alert oriented x3, cranial nerves II to XII grossly intact, patient unable to see from the left eye Psych: Normal mood and affect G/U: Positive Meneses Skin: no rashes, warm and dry Lymphatic: no cervical or axillary lymphadenopathy Results & Data Results & Data Vital Signs (Past 12 Hours) Vital Signs Temp Pulse Pulse Resp BP BP Pulse Ox 03/31/23 06:58 36.5 C 71 5 L 107/57 L 98 03/31/23 06:30 71 5 L 98 03/31/23 06:15 114/61 03/31/23 06:15 71 10 L 96 03/31/23 06:00 70 9 L 98 03/31/23 05:45 70 7 L 96 03/31/23 05:45 116/59 L 03/31/23 05:30 70 8 L 97 03/31/23 05:15 98/68 L 03/31/23 05:15 94 H 16 100 03/31/23 06:00 36.5 C 03/31/23 05:00 70 12 99 03/31/23 04:45 70 14 96 03/31/23 04:45 118/52 L 03/31/23 04:30 70 4 L 95 03/31/23 04:30 115/53 L 03/31/23 05:00 36.4 C L 03/31/23 04:10 70 20 96 03/31/23 04:00 70 7 L 97 03/31/23 04:00 114/58 L 03/31/23 03:50 71 13 99 03/31/23 03:40 77 17 100 03/31/23 03:30 70 12 98 03/31/23 03:30 120/58 L 03/31/23 03:20 70 12 97 03/31/23 03:15 114/71 03/31/23 03:15 70 10 L 99 03/31/23 03:10 70 4 L 98 03/31/23 03:00 70 21 98 03/31/23 02:50 71 15 98 03/31/23 02:40 70 19 99 03/31/23 02:30 70 11 L 99 03/31/23 02:30 113/57 L 03/31/23 02:20 70 12 99 03/31/23 02:10 70 17 99 03/31/23 02:00 70 8 L 100 03/31/23 02:00 118/60 03/31/23 01:50 71 14 100 03/31/23 01:45 116/56 L 03/31/23 01:45 70 15 99 03/31/23 01:40 70 23 98 03/31/23 04:00 36.3 C L 03/31/23 03:00 36.3 C L 03/31/23 02:00 36.2 C L 03/31/23 01:30 69 16 98 03/31/23 01:30 117/57 L 03/31/23 01:20 70 4 L 100 03/31/23 01:10 73 17 96 03/31/23 01:00 71 7 L 100 03/31/23 00:50 69 11 L 100 03/31/23 00:45 103/59 L 03/31/23 00:45 71 11 L 98 03/31/23 00:40 70 20 93 03/31/23 00:30 70 11 L 98 03/31/23 00:30 111/54 L 03/31/23 00:20 71 20 100 03/31/23 00:15 112/55 L 03/31/23 00:15 73 16 99 03/31/23 01:00 36.2 C L 03/31/23 00:10 70 16 97 03/31/23 00:00 70 16 100 03/30/23 23:50 72 15 99 03/30/23 23:40 71 11 L 99 03/30/23 23:30 70 10 L 99 03/30/23 23:30 109/70 03/30/23 23:20 70 17 97 03/30/23 23:45 109/62 03/31/23 00:00 107/57 L 03/31/23 00:00 36.2 C L 03/30/23 23:15 109/56 L 03/30/23 23:15 70 14 100 03/30/23 23:10 71 12 100 03/30/23 23:00 70 13 98 03/30/23 23:00 113/55 L 03/30/23 22:50 70 16 98 03/30/23 22:45 105/48 L 03/30/23 22:45 70 18 100 03/30/23 22:40 70 16 98 03/30/23 23:00 36.2 C L 03/30/23 22:30 70 19 95 03/30/23 22:30 123/56 L 03/30/23 22:20 71 7 L 96 03/30/23 22:15 70 15 98 03/30/23 22:15 114/58 L 03/30/23 22:10 71 11 L 99 03/30/23 22:00 71 11 L 116/61 99 03/30/23 21:50 71 19 95 03/30/23 21:40 71 16 95 03/30/23 21:30 70 6 L 97 03/30/23 21:30 108/63 03/30/23 21:20 70 16 96 03/30/23 21:15 114/56 L 03/30/23 21:15 72 16 96 03/30/23 21:10 72 14 100 03/30/23 21:00 75 13 100 03/30/23 21:00 117/62 03/30/23 20:50 76 14 99 03/30/23 20:45 112/64 03/30/23 20:45 71 14 100 03/30/23 22:00 36.2 C L 03/30/23 20:00 36.1 C L 03/30/23 21:00 36.2 C L 03/30/23 20:40 71 15 100 03/30/23 20:30 70 21 98 03/30/23 20:30 120/58 L 03/30/23 20:20 70 20 100 03/30/23 20:15 120/64 03/30/23 20:15 71 15 100 03/30/23 20:10 73 17 99 03/30/23 20:00 71 16 100 03/30/23 20:00 93/44 L 03/30/23 19:50 71 0 L 100 03/30/23 19:45 106/53 L 03/30/23 19:45 70 13 100 03/30/23 19:40 70 16 100 03/30/23 19:30 99/52 L 03/30/23 19:30 70 16 98 O2 Del Method 03/31/23 06:58 03/31/23 06:30 03/31/23 06:15 03/31/23 06:15 03/31/23 06:00 03/31/23 05:45 Room Air 03/31/23 05:45 03/31/23 05:30 Room Air 03/31/23 05:15 03/31/23 05:15 Room Air 03/31/23 06:00 03/31/23 05:00 Room Air 03/31/23 04:45 Room Air 03/31/23 04:45 03/31/23 04:30 Room Air 03/31/23 04:30 03/31/23 05:00 03/31/23 04:10 Room Air 03/31/23 04:00 Room Air 03/31/23 04:00 03/31/23 03:50 Room Air 03/31/23 03:40 Room Air 03/31/23 03:30 Room Air 03/31/23 03:30 03/31/23 03:20 Room Air 03/31/23 03:15 03/31/23 03:15 Room Air 03/31/23 03:10 Room Air 03/31/23 03:00 Room Air 03/31/23 02:50 Room Air 03/31/23 02:40 Room Air 03/31/23 02:30 Room Air 03/31/23 02:30 03/31/23 02:20 Room Air 03/31/23 02:10 Room Air 03/31/23 02:00 Room Air 03/31/23 02:00 03/31/23 01:50 Room Air 03/31/23 01:45 03/31/23 01:45 Room Air 03/31/23 01:40 Room Air 03/31/23 04:00 03/31/23 03:00 03/31/23 02:00 03/31/23 01:30 Room Air 03/31/23 01:30 03/31/23 01:20 Room Air 03/31/23 01:10 Room Air 03/31/23 01:00 Room Air 03/31/23 00:50 03/31/23 00:45 03/31/23 00:45 03/31/23 00:40 03/31/23 00:30 Room Air 03/31/23 00:30 03/31/23 00:20 Room Air 03/31/23 00:15 03/31/23 00:15 Room Air 03/31/23 01:00 03/31/23 00:10 03/31/23 00:00 03/30/23 23:50 Room Air 03/30/23 23:40 Room Air 03/30/23 23:30 Room Air 03/30/23 23:30 03/30/23 23:20 Room Air 03/30/23 23:45 03/31/23 00:00 03/31/23 00:00 03/30/23 23:15 03/30/23 23:15 03/30/23 23:10 03/30/23 23:00 03/30/23 23:00 03/30/23 22:50 Room Air 03/30/23 22:45 03/30/23 22:45 Room Air 03/30/23 22:40 Room Air 03/30/23 23:00 Room Air 03/30/23 22:30 03/30/23 22:30 Room Air 03/30/23 22:20 Room Air 03/30/23 22:15 Room Air 03/30/23 22:15 Room Air 03/30/23 22:10 Room Air 03/30/23 22:00 Room Air 03/30/23 21:50 03/30/23 21:40 03/30/23 21:30 03/30/23 21:30 03/30/23 21:20 03/30/23 21:15 03/30/23 21:15 03/30/23 21:10 03/30/23 21:00 03/30/23 21:00 03/30/23 20:50 03/30/23 20:45 03/30/23 20:45 03/30/23 22:00 03/30/23 20:00 03/30/23 21:00 03/30/23 20:40 03/30/23 20:30 03/30/23 20:30 03/30/23 20:20 03/30/23 20:15 03/30/23 20:15 03/30/23 20:10 03/30/23 20:00 03/30/23 20:00 03/30/23 19:50 03/30/23 19:45 03/30/23 19:45 03/30/23 19:40 03/30/23 19:30 03/30/23 19:30 Laboratory Results 03/31/23 05:54 03/31/23 05:54 Coding Level of Care Code 77249 SUB INP/OBS CARE 3/50MIN Diagnoses Unresponsive episode R40.4 Heat stroke T67.01XA Encounter type: initial encounter AMS (altered mental status) R41.82 Altered mental status type: unspecified MARIE (acute kidney injury) N17.9 Paroxysmal SVT (supraventricular tachycardia) I47.1 Chronic pain syndrome G89.4 Diabetic peripheral neuropathy E11.42 Hypertension I10 Shock circulatory R57.9 (2) Heat stroke Encounter type: initial encounter Qualified Code(s): T67.01XA - Heatstroke and sunstroke, initial encounter (3) AMS (altered mental status) Altered mental status type: unspecified Qualified Code(s): R41.82 - Altered mental status, unspecified
--- NOTE | 2023-03-31 07:34 | Hospitalist Progress Note ---
Date of Service March 31, 2023 Assessment & Plan (1) Unresponsive episode: Plan: 87 M was found hypothermic and unresponsive outside. Confused and hypotensive, volume resuscitated, C spine cleared with CT Due to hypotension was transferred to ICU on Levophed for pressure support. Patient identified new left vision loss, initially unclear last known normal was thought to be evening prior on further history likely to be around 11 AM 03/30. PT did not meet criteria for thrombolytic therapy, started on asprin Initial head CT normal, was unable to obtain MRI due to lumbar spinal chord stimulator and pacemaker placement. CT angios were obtained due to inability to get MRI, angios did show carotid stenosis and suspect patient had symptomatic carotid stenosis with embolic left vision loss. [facility] [place], discussed with neuro ICU and timately accepted in transfer to their facility for further care. Fever/hyperthermia Patient found down in the yard with temperature of 105 concern for heatstroke while lying in the sun versus primary heatstroke. Repeat tickborne serology pending. Patient has received empiric Rocephin, will defer additional coverage in absence of leukocytosis or other infectious symptoms. Rhabdomyolysis CK2 77 in the setting of laying on the ground. Fluids, trend renal function daily. Can repeat one CK tomorrow, as long as this remains either downtrending or less than 1000 and defer additional repeat Hx sick sinus syndrome s/p pacemaker placement 12/2020 Patient with pacemaker in place. At last interrogation 11/2022 was with atrial pacing and no arrhythmias. Repeat interrogation pending Troponin is noted Type II DM Admitting BSG 184, Was not hypoglycemic on arrival On basal bolus at home, basal 12-22 units and aspart with meals Pharmacy consulted for assistance with glycemic management Hypertension Lisinopril held with MARIE BPH with LUTS UA bland on arrival History of carotid stenosis 70% left ICA on the left side followed as outpatient. No history of CVA Is with left vision loss as above Hypothyroidism Continue Synthroid TSH pending COPD Last PFTs with mild obstructive disease Continue Breo Postlaminectomy syndrome with claudication S/p spinal cord stimulator 01/2022, non tender DVT prophylaxis: Lovenox starting 03/31, SCDs Diet: Heart healthy Disposition: PCU CODE STATUS: DNR/DNI (2) Uncontrolled type 2 diabetes mellitus with complication, with long-term current use of insulin: (3) Heat stroke: (4) Paroxysmal SVT (supraventricular tachycardia): (5) Controlled type 2 diabetes mellitus with diabetic neuropathy, with long-term current use of insulin: (6) BPH with obstruction/lower urinary tract symptoms: (7) Tachycardia-bradycardia: (8) Post laminectomy syndrome: Admission and Anticipated Discharge Date Admission Date: March 30, 2023 Results & Data Results & Data Vital Signs (Past 12 Hours) Vital Signs Temp Pulse Pulse Resp BP BP Pulse Ox 03/31/23 06:58 97.7 F 71 5 L 107/57 L 98 03/31/23 06:30 71 5 L 98 03/31/23 06:15 114/61 03/31/23 06:15 71 10 L 96 03/31/23 06:00 70 9 L 98 03/31/23 05:45 70 7 L 96 03/31/23 05:45 116/59 L 03/31/23 05:30 70 8 L 97 03/31/23 05:15 98/68 L 03/31/23 05:15 94 H 16 100 03/31/23 06:00 97.7 F 03/31/23 05:00 70 12 99 03/31/23 04:45 70 14 96 03/31/23 04:45 118/52 L 03/31/23 04:30 70 4 L 95 03/31/23 04:30 115/53 L 03/31/23 05:00 97.5 F L 03/31/23 04:10 70 20 96 03/31/23 04:00 70 7 L 97 03/31/23 04:00 114/58 L 03/31/23 03:50 71 13 99 03/31/23 03:40 77 17 100 03/31/23 03:30 70 12 98 03/31/23 03:30 120/58 L 03/31/23 03:20 70 12 97 03/31/23 03:15 114/71 03/31/23 03:15 70 10 L 99 03/31/23 03:10 70 4 L 98 03/31/23 03:00 70 21 98 03/31/23 02:50 71 15 98 03/31/23 02:40 70 19 99 03/31/23 02:30 70 11 L 99 03/31/23 02:30 113/57 L 03/31/23 02:20 70 12 99 03/31/23 02:10 70 17 99 03/31/23 02:00 70 8 L 100 03/31/23 02:00 118/60 03/31/23 01:50 71 14 100 03/31/23 01:45 116/56 L 03/31/23 01:45 70 15 99 03/31/23 01:40 70 23 98 03/31/23 04:00 97.3 F L 03/31/23 03:00 97.3 F L 03/31/23 02:00 97.2 F L 03/31/23 01:30 69 16 98 03/31/23 01:30 117/57 L 03/31/23 01:20 70 4 L 100 03/31/23 01:10 73 17 96 03/31/23 01:00 71 7 L 100 03/31/23 00:50 69 11 L 100 03/31/23 00:45 103/59 L 03/31/23 00:45 71 11 L 98 03/31/23 00:40 70 20 93 03/31/23 00:30 70 11 L 98 03/31/23 00:30 111/54 L 03/31/23 00:20 71 20 100 03/31/23 00:15 112/55 L 03/31/23 00:15 73 16 99 03/31/23 01:00 97.2 F L 03/31/23 00:10 70 16 97 03/31/23 00:00 70 16 100 03/30/23 23:50 72 15 99 03/30/23 23:40 71 11 L 99 03/30/23 23:30 70 10 L 99 03/30/23 23:30 109/70 03/30/23 23:20 70 17 97 03/30/23 23:45 109/62 03/31/23 00:00 107/57 L 03/31/23 00:00 97.2 F L 03/30/23 23:15 109/56 L 03/30/23 23:15 70 14 100 03/30/23 23:10 71 12 100 03/30/23 23:00 70 13 98 03/30/23 23:00 113/55 L 03/30/23 22:50 70 16 98 03/30/23 22:45 105/48 L 03/30/23 22:45 70 18 100 03/30/23 22:40 70 16 98 03/30/23 23:00 97.2 F L 03/30/23 22:30 70 19 95 03/30/23 22:30 123/56 L 03/30/23 22:20 71 7 L 96 03/30/23 22:15 70 15 98 03/30/23 22:15 114/58 L 03/30/23 22:10 71 11 L 99 03/30/23 22:00 71 11 L 116/61 99 03/30/23 21:50 71 19 95 03/30/23 21:40 71 16 95 03/30/23 21:30 70 6 L 97 03/30/23 21:30 108/63 03/30/23 21:20 70 16 96 03/30/23 21:15 114/56 L 03/30/23 21:15 72 16 96 03/30/23 21:10 72 14 100 03/30/23 21:00 75 13 100 03/30/23 21:00 117/62 03/30/23 20:50 76 14 99 03/30/23 20:45 112/64 03/30/23 20:45 71 14 100 03/30/23 22:00 97.2 F L 03/30/23 20:00 97.0 F L 03/30/23 21:00 97.2 F L 03/30/23 20:40 71 15 100 03/30/23 20:30 70 21 98 03/30/23 20:30 120/58 L 03/30/23 20:20 70 20 100 03/30/23 20:15 120/64 03/30/23 20:15 71 15 100 03/30/23 20:10 73 17 99 03/30/23 20:00 71 16 100 03/30/23 20:00 93/44 L 03/30/23 19:50 71 0 L 100 03/30/23 19:45 106/53 L 03/30/23 19:45 70 13 100 03/30/23 19:40 70 16 100 03/30/23 19:30 99/52 L 03/30/23 19:30 70 16 98 O2 Del Method 03/31/23 06:58 03/31/23 06:30 03/31/23 06:15 03/31/23 06:15 03/31/23 06:00 03/31/23 05:45 Room Air 03/31/23 05:45 03/31/23 05:30 Room Air 03/31/23 05:15 03/31/23 05:15 Room Air 03/31/23 06:00 03/31/23 05:00 Room Air 03/31/23 04:45 Room Air 03/31/23 04:45 03/31/23 04:30 Room Air 03/31/23 04:30 03/31/23 05:00 03/31/23 04:10 Room Air 03/31/23 04:00 Room Air 03/31/23 04:00 03/31/23 03:50 Room Air 03/31/23 03:40 Room Air 03/31/23 03:30 Room Air 03/31/23 03:30 03/31/23 03:20 Room Air 03/31/23 03:15 03/31/23 03:15 Room Air 03/31/23 03:10 Room Air 03/31/23 03:00 Room Air 03/31/23 02:50 Room Air 03/31/23 02:40 Room Air 03/31/23 02:30 Room Air 03/31/23 02:30 03/31/23 02:20 Room Air 03/31/23 02:10 Room Air 03/31/23 02:00 Room Air 03/31/23 02:00 03/31/23 01:50 Room Air 03/31/23 01:45 03/31/23 01:45 Room Air 03/31/23 01:40 Room Air 03/31/23 04:00 03/31/23 03:00 03/31/23 02:00 03/31/23 01:30 Room Air 03/31/23 01:30 03/31/23 01:20 Room Air 03/31/23 01:10 Room Air 03/31/23 01:00 Room Air 03/31/23 00:50 03/31/23 00:45 03/31/23 00:45 03/31/23 00:40 03/31/23 00:30 Room Air 03/31/23 00:30 03/31/23 00:20 Room Air 03/31/23 00:15 03/31/23 00:15 Room Air 03/31/23 01:00 03/31/23 00:10 03/31/23 00:00 03/30/23 23:50 Room Air 03/30/23 23:40 Room Air 03/30/23 23:30 Room Air 03/30/23 23:30 03/30/23 23:20 Room Air 03/30/23 23:45 03/31/23 00:00 03/31/23 00:00 03/30/23 23:15 03/30/23 23:15 03/30/23 23:10 03/30/23 23:00 03/30/23 23:00 03/30/23 22:50 Room Air 03/30/23 22:45 03/30/23 22:45 Room Air 03/30/23 22:40 Room Air 03/30/23 23:00 Room Air 03/30/23 22:30 03/30/23 22:30 Room Air 03/30/23 22:20 Room Air 03/30/23 22:15 Room Air 03/30/23 22:15 Room Air 03/30/23 22:10 Room Air 03/30/23 22:00 Room Air 03/30/23 21:50 03/30/23 21:40 03/30/23 21:30 03/30/23 21:30 03/30/23 21:20 03/30/23 21:15 03/30/23 21:15 03/30/23 21:10 03/30/23 21:00 03/30/23 21:00 03/30/23 20:50 03/30/23 20:45 03/30/23 20:45 03/30/23 22:00 03/30/23 20:00 03/30/23 21:00 03/30/23 20:40 03/30/23 20:30 03/30/23 20:30 03/30/23 20:20 03/30/23 20:15 03/30/23 20:15 03/30/23 20:10 03/30/23 20:00 03/30/23 20:00 03/30/23 19:50 03/30/23 19:45 03/30/23 19:45 03/30/23 19:40 03/30/23 19:30 03/30/23 19:30 PG Care Time/CCT Total # of Minutes Spent Total Time Spent with Patient: Total time spent is greater than 50% in coordination of care (as documented) at patient's floor/unit and/or counseling patient: Coding Diagnoses Unresponsive episode R40.4 Uncontrolled type 2 diabetes mellitus with complication, with long-term current use of insulin E11.8; E11.65; Z79.4 Heat stroke T67.01XA Encounter type: initial encounter Paroxysmal SVT (supraventricular tachycardia) I47.1 Controlled type 2 diabetes mellitus with diabetic neuropathy, with long-term current use of insulin E11.40; Z79.4 BPH with obstruction/lower urinary tract symptoms N40.1; N13.8 Tachycardia-bradycardia I49.5 Post laminectomy syndrome M96.1 (3) Heat stroke Encounter type: initial encounter Qualified Code(s): T67.01XA - Heatstroke and sunstroke, initial encounter
[2023-03-31] MEDS ORDERED: HEPARIN SOD 5,000 UNIT/0.5 ML VIAL SQ SCH (09:00)
[2023-03-31] MEDS ORDERED: UMECLIDINIUM/VILANTEROL 62.5/25MCG 7 PUFFS/INHALER INH SCH (09:00)
[2023-03-31] MEDS ORDERED: ATORVASTATIN 40 MG TAB PO SCH (09:00)
[2023-04-03 05:43] LABS: 18KDIGG Band REACTIVE; 23KDIGG Band NON-REACTIVE; 23KDIGM Band NON-REACTIVE; 28KDIGG Band NON-REACTIVE; 30KDIGG Band NON-REACTIVE; 39KDIGG Band REACTIVE; 39KDIGM Band NON-REACTIVE; 41KDIGG Band REACTIVE; 41KDIGM Band NON-REACTIVE; 45KDIGG Band NON-REACTIVE; 58KDIGG Band REACTIVE; 66KDIGG Band REACTIVE; 93KDIGG Band REACTIVE; Lyme Antibodies, WB IgG POSITIVE (NEGATIVE); Lyme Antibodies, WB IgM NEGATIVE (NEGATIVE)
[2023-04-03 15:07] LABS: Uric Acid, Random Urine 31 mg/dL
== END 2023-03-31 07:35 | disposition short-term general hospital (02) | DRG 67 ==
LOC: ED 13:51 → SUATTDRO 15:45 → 1E 15:45